=== PATIENT | male | born 1965 | race Caucasian/White ===

== ENCOUNTER 2018-08-11 17:45 | Observation (INO) | payer OTHER, SELFPAY ==
[2018-08-11 17:46] VITALS: BP 141/95; PULSE 110; RESP 18; TEMP 36.7; O2SAT 95; BMI 21.4
[2018-08-11 18:50] LABS: AST(SGOT) 34 U/L (15-37); Absolute Lymphocyte Count 2.12 X10^3/ul (0.83-4.51); Absolute Neutrophil Count 7.5 X10^3/uL (2.0-7.7); Alanine Aminotransfer ALT/SGPT 31 U/L (16-61); Albumin, Serum 2.5 g/dL (3.2-5.0); Alkaline Phosphatase 309 U/L (45-117); Anion Gap 7 (5-15); BUN 10 mg/dL (7-18); BUN/Creat Ratio 10.1 RATIO (10-20); Basophil# 0.05 X10^3/uL; Basophil% 0.5 % (0-1); Bilirubin, Direct 0.46 mg/dL (0.00-0.30); Calcium,Total 8.9 mg/dL (8.5-10.1); Chloride 93 mmol/L (98-107); Creatinine, Serum 0.99 mg/dL (0.70-1.30); EST Glomerular Filtration Rate 85 mL/min (>60); Eosinophil# 0.03 X10^3/uL; Eosinophils% 0.3 % (0-5); Est Glom Filt Rate - Afr Amer 102 mL/min (>60); Estimated Creatinine Clearance 78.54 ml/min; Globulin 4.9 g/dL (2.2-4.2); Glucose 127 mg/dL (74-106); Hematocrit 38.8 % (40-54); Hemoglobin 13.3 g/dl (13.0-16.5); Lipase 95 U/L (73-393); Lymphocyte # 2.12 X10^3/ul (4.0); Lymphocyte % 19.1 % (19-41); Mean Corp Hgb Conc 34.3 g/gl (32-36); Mean Corpuscular Hgb 29.4 pg (27.0-32.0); Mean Corpuscular Volume 85.8 fL (80-94); Mean Platelet Vol. 8.9 fl (6.2-12.0); Monocyte# 1.38 X10^3/uL; Monocyte% 12.4 % (0-10); Neutrophil # 7.46 X10^3/uL (2.7-7.7); Neutrophil % 67.1 % (47-70); Platelet Count 671 K/mm3 (150-450); Potassium 4.3 mmol/L (3.5-5.1); Protein, Total 7.4 g/dL (6.4-8.2); RBC Distribution Width CV 14.7 % (11.6-14.6); RBC Distribution Width SD 44.6 fl (35.1-43.9); Red Blood Count 4.52 M/mm3 (4.6-6.2); Sodium Level 130 mmol/L (136-145); White Blood Count 11.1 K/mm3 (4.4-11.0)
[2018-08-11 18:52] LABS: POSITIVE COUNT NO; POSITIVE DIFFERENTIAL NO; POSITIVE MORPHOLOGY NO
[2018-08-11 19:37] VITALS: BMI 21.5
--- NOTE | 2018-08-11 19:48 | ED.VISSUMM ---
- ER Visit Summary Date of Service: 08/11/18 Chief Complaint: Fatigue, sleepiness History of Present Illness: The patient is a 52 M who was started on methadone last week for bone pain from cancer metastasis. states he had increasing sleepiness over the past couple days. Today he fell asleep while trying to eat his lunch. Patient was sent in by his oncologist, Dr. Booker. 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 He is on oral chemotherapy. Dr. Booker believes the patient is getting buildup of methadone in his system and this is causing his excessive sleepiness. He advised the patient to be given Narcan if needed. He requested the patient be admitted, methadone held, and close observation. Physical Examination: Blood pressure is 141/95, temperature 98.0, heart rate 110, respiratory rate 18, pulse ox 95% on room air. Patient sitting upright in bed in no acute distress. He has no complaints. Heart is tachycardic and regular. Lung sounds are clear. Abdomen is soft with no focal tenderness. Patient is alert and oriented at this time. Test Results: CBC was a white count 11.1. Platelet count is 671,000. Chemistry studies reveal a sodium of 130 and a chloride of 93. His glucose is 127. LFTs are significant only for alk phos of 309. His lipase is normal. Emergency Department Course and Treatment: Patient is given IV fluids here. On repeat evaluation he is awake and talking with visitors. Per Dr. Booker's request, patient will be admitted and methadone is to be held. Treatment Plan: [] Disposition: Admit Impression: 1. Hyponatremia 2. Excessive sleepiness secondary to methadone This note was generated with [employer] dictation software. It may contain incorrect words, spelling, and punctuation that were not noted in review of the chart prior to signing ED Disposition - Plan for ED Patient: Chief Complaint: Alt LOC Referrals: Samy Lewis MD [Primary Care Provider] -
--- NOTE | 2018-08-11 19:52 | HP.PCM_ITS ---
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 Patient was recently started on morphine and methadone for pain control but since he was getting sick on morphine; morphine was discontinued. Patient was initially taking 5 mg of methadone every 8 hours; but because of lethargy his methadone dose was decreased to 2.5 mg every 8 hours. Even on this decreased dose of methadone patient continued to be lethargic. And on the day of admission while eating, and with his food in his mouth he was found to be sleeping. He is on Ritalin but still lethargic. His oncology Dr. Booker was notified and patient was brought to the emergency department. His family report that about 2 weeks ago patient was at [facility] for pain management. At the emergency department he was found to have a low sodium of 130. ED doctor reported that Dr. Booker recommended methadone to be held, administration of narcan if needed; and admission for close observation. Reportedly patient has neuroendocrine metastatic to his bone into his liver. Patient takes oral chemotherapy. Typically patient has pain at the back of his neck; stomach and back. However at the time of my evaluation patient denied any pain. In the past while the patient was on Percocet he was found to be sleeping all the time and he had some period where he would 'spaced out. Past Medical History Medical History: Medical History (Last Updated 08/11/18 @ 23:05 by Ezequiel Zuniga MD) Neuroendocrine cancer C7A.8 Allergies DUST Allergy (Uncoded 08/11/18 17:45) Other Home Medications: Ambulatory Orders Medication Instructions Recorded Amlodipine [Norvasc] 5 mg PO PRN PRN 08/11/18 Capecitabine 1,000 mg PO BID 08/11/18 Dicyclomine HCl [Bentyl] 10 mg PO 4X/DAY 08/11/18 DiphenhydrAMINE [Benadryl] 25 mg PO QHS PRN PRN 08/11/18 Fluticasone 0.05% [Flonase Nasal 1 spray NASAL PRN PRN 08/11/18 [place]] Lactulose 30 ml PO BID 08/11/18 Metaxalone [Skelaxin] 800 mg PO TID 08/11/18 Methadone HCl 2.5 mg PO Q8H PRN PRN 08/11/18 Methylphenidate HCl [Ritalin (G)] 5 mg PO BID 08/11/18 Metoclopramide HCl 10 mg PO Q6H 08/11/18 Naproxen Sod/Diphenhydram HCl 2 tab PO QHS 08/11/18 [Aleve Pm Caplet] Naproxen Sodium [Aleve] 440 mg PO BID PRN PRN 08/11/18 Pantoprazole Sodium [Protonix] 20 mg PO DAILY 08/11/18 Sennosides/Docusate Sodium [Senna 1 tab PO BID 08/11/18 Plus Tablet] Temazepam [Restoril] 7.5 mg PO QHS 08/11/18 Temozolomide 300 mg PO DAILY 08/11/18 Surgical History: - - fusion of wrist; silicon buckle left eye Lives: Spouse/ Significant Other Smoking Status: Never smoker Tobacco Use: Non-smoker Alcohol: None - *Family History Maternal History Items: Cancer - colon Paternal History Items: Heart Disease - Dad had heart attack in his 70s Review of Systems Constitutional: Reports: Weight Change - Lost 10 pounds in 1 month., Fatigue. Denies: Chills, Fever HEENT: Denies: Head Aches, Sinus Congestion, Sinus Drainage Cardiovascular: Denies: Chest Pain, Palpitations Respiratory: Denies: Cough, Shortness of breath at rest, Sputum production Gastrointestinal: Denies: Abdominal Pain, Nausea, Vomiting Genitourinary: Denies: Dysuria Musculoskeletal: Denies: Joint Pain, Joint Tenderness Skin: Denies: Rash, Wounds Neurological: Denies: Numbness, Tingling, Focal weakness Psychiatric: Denies: Anxiety, Depression, Homicidal Ideations, Suicidal Ideations Hematologic/ Lymphatic: Denies: Easy Bruising, Easy Bleeding VTE Information - Inpt Only VTE Present on Admission: No VTE Mechan Device Prophylaxis: None VTE Pharm Prophylaxis ordered?: Yes Patient Problems: Active and Suspected Problems (Last Updated 08/11/18 @ 23:05 by Ezequiel Zuniga MD) Acute encephalopathy (Acute) Hyponatremia (Acute) - Physical Exam General: Alert, Oriented x3, Cooperative HEENT: Atraumatic, PERRLA, EOMI, Normocephalic Neck: Supple, No JVD, Negative Carotid Bruits, - - nodule at back of head Lungs: Clear to auscultation, Normal air movement Cardiovascular: Regular rate, No murmurs, Tachycardic Abdomen: Bowel Sounds Present, Soft, Non Tender Extremities: No edema, Capillary Refill Less than 3 Seconds Skin: No rashes, No breakdown Musculoskeletal: No Tenderness to Palpation of Joints or Extremities Neurological: Cranial nerves II-XII grossly intact Psych/Mental Status: Normal Affect, Appropriate Vital Signs Temp Pulse Resp BP Pulse Ox 98.0 F 110 H 18 141/95 H 95 08/11/18 17:46 08/11/18 17:46 08/11/18 17:46 08/11/18 17:46 08/11/18 17:46 Oxygen Delivery Method Room Air Weight: 62.2 kg Body Mass Index (BMI) 21.4 Laboratory Tests Past 24 Hrs 08/11/18 08/11/18 18:16 18:16 WBC 11.1 H RBC 4.52 L Hgb 13.3 Hct 38.8 L MCV 85.8 MCH 29.4 MCHC 34.3 RDW 14.7 H RDW Differential 44.6 H Plt Count 671 H MPV 8.9 Immature Gran % (Auto) 0.600 Neut % (Auto) 67.1 Lymph % (Auto) 19.1 Hand % (Auto) 12.4 H Eos % (Auto) 0.3 Baso % (Auto) 0.5 Absolute Neuts (auto) 7.5 Absolute Lymphs (auto) 2.12 Total Counted Not Reportable Sodium 130 L Potassium 4.3 Chloride 93 L Carbon Dioxide 30.0 Anion Gap 7 BUN 10 Creatinine 0.99 Estim Creat Clear Calc 78.54 Est GFR (MDRD) Af Amer 102 Est GFR (MDRD) Non-Af 85 BUN/Creatinine Ratio 10.1 Glucose 127 H Calcium 8.9 Total Bilirubin 0.70 Direct Bilirubin 0.46 H AST 34 ALT 31 Alkaline Phosphatase 309 H Total Protein 7.4 Albumin 2.5 L Globulin 4.9 H Lipase 95 Assessment/Plan All Active Problems (Last Updated 08/11/18 @ 23:05 by Ezequiel Zuniga MD) Acute encephalopathy (Acute) Hyponatremia (Acute) The patient is a 52 year old M with a 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 Acute encephalopathy Likely due to methadone use. Methadone held. Home nightly Benadryl, Metaxalone, and Restoril held. No signs and symptoms of infection. Unlikely due to debilitating effects of chemotherapy since at the time of evaluation patient did not look lethargic. Will check TSH. Clinical monitoring. Hypo-osmolar hyponatremia Urine sodium, TSH, a.m. cortisol ordered Received IV normal saline infusion in the emergency department Normal saline continued. If SIADH from cancer would recommend discontinuation of normal saline infusion. Elevated alkaline phosphatase Likely from metastatic of neuro endocrine tumor to liver. Continue treatment of neuroendocrine tumor Antimitochondrial antibody ordered. Neuroendocrine tumor Oncology consult. Home oral chemotherapy continued. Hypertension Family report the patient is not hypertensive but because of pain his blood pressure outpatient has occasionally been high and he takes as needed blood pressure medication. On admission blood pressure is not within goal. We will make his home Norvasc scheduled. DVT prophylaxis Because of high risk patient placed on Lovenox. Code Visit OBSV E&M: 16094 Initial observation care L3
[2018-08-11 19:59] VITALS: BP 143/101; PULSE 85; RESP 14; O2SAT 98
[2018-08-11] MEDS: 0.9% Normal Saline 1,000 ML 150 ML IV (19:59)
[2018-08-11 20:32] VITALS: BP 151/99; PULSE 75; RESP 14; TEMP 36.9; O2SAT 95; BMI 21.2
[2018-08-11 21:20] LABS: Osmolality, Urine 242 mOsm/KG
[2018-08-11 21:23] LABS: Urine Sodium 69 mmol/L (Not Establ.)
[2018-08-11 21:54] LABS: Osmolality, Serum 269 mOsm/KG (275-295)
[2018-08-11 22:00] VITALS: PULSE 75
[2018-08-11 22:03] LABS: Thyroid Stim Hormone (TSH) 2.81 uIU/mL (0.358-3.74)
[2018-08-11] MEDS: 0.9% Normal Saline 1,000 ML 100 ML IV (23:06)
[2018-08-11] MEDS: Dicyclomine 10 MG Capsule PO (23:06)
[2018-08-11] MEDS: DiphenhydrAMINE 25 MG Capsule 50 MG PO (23:07)
[2018-08-11] MEDS: Naproxen 500 MG Tablet PO (23:08)
[2018-08-11] MEDS: Lactulose 20 GM/30 ML UDC PO (23:08)
[2018-08-11] MEDS: Senna/Docusate Sodium 1 Tablet PO (23:09)
[2018-08-11] MEDS: Metoclopramide 10 MG Tablet PO (23:10)
[2018-08-12 02:30] VITALS: BP 119/82; PULSE 79; RESP 16; TEMP 36.6; O2SAT 97
[2018-08-12 04:00] VITALS: PULSE 90
[2018-08-12 06:23] LABS: Absolute Lymphocyte Count 2.72 X10^3/ul (0.83-4.51); Absolute Neutrophil Count 4.9 X10^3/uL (2.0-7.7); Basophil# 0.04 X10^3/uL; Basophil% 0.4 % (0-1); Eosinophil# 0.05 X10^3/uL; Eosinophils% 0.6 % (0-5); Hematocrit 33.4 % (40-54); Hemoglobin 11.5 g/dl (13.0-16.5); Lymphocyte # 2.72 X10^3/ul (4.0); Lymphocyte % 30.4 % (19-41); Mean Corp Hgb Conc 34.4 g/gl (32-36); Mean Corpuscular Hgb 29.5 pg (27.0-32.0); Mean Corpuscular Volume 85.6 fL (80-94); Mean Platelet Vol. 8.6 fl (6.2-12.0); Monocyte# 1.16 X10^3/uL; Neutrophil # 4.92 X10^3/uL (2.7-7.7); Platelet Count 570 K/mm3 (150-450); RBC Distribution Width CV 14.6 % (11.6-14.6); White Blood Count 8.9 K/mm3 (4.4-11.0)
[2018-08-12 06:25] LABS: POSITIVE COUNT NO; POSITIVE DIFFERENTIAL NO; POSITIVE MORPHOLOGY NO
[2018-08-12 06:53] LABS: Anion Gap 5 (5-15); BUN 10 mg/dL (7-18); BUN/Creat Ratio 11.9 RATIO (10-20); Calcium,Total 8.4 mg/dL (8.5-10.1); Chloride 100 mmol/L (98-107); Creatinine, Serum 0.84 mg/dL (0.70-1.30); EST Glomerular Filtration Rate 102 mL/min (>60); Est Glom Filt Rate - Afr Amer 123 mL/min (>60); Estimated Creatinine Clearance 93.15 ml/min; Glucose 92 mg/dL (74-106); Potassium 4.2 mmol/L (3.5-5.1); Sodium Level 135 mmol/L (136-145); Thyroid Stim Hormone (TSH) 3.12 uIU/mL (0.358-3.74)
[2018-08-12] MEDS: Dicyclomine 10 MG Capsule PO (07:01)
[2018-08-12] MEDS: Metoclopramide 10 MG Tablet PO ×2 (07:03→10:10)
--- NOTE | 2018-08-12 07:35 | PCM.PN.HOSP ---
Patient Problems: Active and Suspected Problems (Last Updated 08/11/18 @ 23:05 by Ezequiel Zuniga MD) Acute encephalopathy (Acute) Hyponatremia (Acute) Subjective: Patient overnight with improved mental status, alert and oriented x3 and denies any acute pain currently given recent hold on methadone. He only recently been started methadone per discussion with oncology and given patient history of metastatic liver disease suspect poor metabolism resulting in his lethargy. Discussed again importance of appropriate oral hydration which he understands. Patient denies fevers, chills, nausea, emesis, abdominal pain, chest pain or dyspnea. Objective: Physical Examination: General: awake, alert, oriented x 3 and cooperative, seated upright in bed in no apparent distress. Skin: normal color, turgor, no icterus, cyanosis. HEENT: AT/NC, EOMI, PERRLA, improved MMM. Lungs: CTA bilaterally, moderate effort, mild decrease BL bases, no rales, ronchi or wheezing. Heart: Regular rate and rhythm; no gallop, rub audible. Abdomen: soft, NTTP, ND, normal BS. Extremities: no cyanosis, clubbing, or edema. Neurological: patient awake, alert, oriented x 3; cognitive function intact; pupils equally reactive to light and accomodation; cranial nerves II-XII grossly normal, moving all 4 extremities, no focal deficits, strength improved, mildly globally decreased. Psychiatric: affect appears normal, no acute evidence of depressive or anxiety feelings. Vitals/I&O's: Vital Signs Temp Pulse Resp BP Pulse Ox 97.9 F 90 16 119/82 H 97 08/12/18 02:30 08/12/18 04:00 08/12/18 02:30 08/12/18 02:30 08/12/18 02:30 Oxygen Delivery Method Room Air Weight: 138 lb 0.15 oz Body Mass Index (BMI) 21.2 Intake and Output for Last 24 Hours 08/10/18 08/11/18 08/12/18 23:59 23:59 23:59 Intake Total 161 / 161 Output Total 600 / 600 Balance -439 / -439 Laboratory Results 08/11/18 18:16: WBC 11.1 H, RBC 4.52 L, Hgb 13.3, Hct 38.8 L, MCV 85.8, MCH 29.4, MCHC 34.3, RDW 14.7 H, RDW Differential 44.6 H, Plt Count 671 H, MPV 8.9, Immature Gran % (Auto) 0.600, Neut % (Auto) 67.1, Lymph % (Auto) 19.1, [place] % (Auto) 12.4 H, Eos % (Auto) 0.3, Baso % (Auto) 0.5, Absolute Neuts (auto) 7.5, Absolute Lymphs (auto) 2.12, Total Counted Not Reportable 08/11/18 18:16: Sodium 130 L, Potassium 4.3, Chloride 93 L, Carbon Dioxide 30.0, Anion Gap 7, BUN 10, Creatinine 0.99, Estim Creat Clear Calc 78.54, Est GFR (MDRD) Af Amer 102, Est GFR (MDRD) Non-Af 85, BUN/Creatinine Ratio 10.1, Glucose 127 H, Calcium 8.9, Total Bilirubin 0.70, Direct Bilirubin 0.46 H, AST 34, ALT 31, Alkaline Phosphatase 309 H, Total Protein 7.4, Albumin 2.5 L, Globulin 4.9 H, Lipase 95 08/11/18 18:16: Serum Osmolality 269 L 08/11/18 18:16: TSH 2.81 08/11/18 21:00: Urine Osmolality 242 08/11/18 21:00: Ur Random Sodium 69 08/12/18 06:04: Cortisol Pending 08/12/18 06:04: WBC 8.9, RBC 3.90 L, Hgb 11.5 L, Hct 33.4 L, MCV 85.6, MCH 29.5, MCHC 34.4, RDW 14.6, RDW Differential 44.0 H, Plt Count 570 H, MPV 8.6, Immature Gran % (Auto) 0.600, Neut % (Auto) 55.0, Lymph % (Auto) 30.4, [place] % (Auto) 13.0 H, Eos % (Auto) 0.6, Baso % (Auto) 0.4, Absolute Neuts (auto) 4.9, Absolute Lymphs (auto) 2.72, Total Counted Not Reportable 08/12/18 06:04: Sodium 135 L, Potassium 4.2, Chloride 100, Carbon Dioxide 30.0, Anion Gap 5, BUN 10, Creatinine 0.84, Estim Creat Clear Calc 93.15, Est GFR (MDRD) Af Amer 123, Est GFR (MDRD) Non-Af 102, BUN/Creatinine Ratio 11.9, Glucose 92, Calcium 8.4 L, TSH 3.12 08/12/18 06:04: Anti-Mitochondrial Ab Pending Current Medications Amlodipine Besylate (Norvasc) 5 mg PO DAILY [facility] Bisacodyl (Dulcolax) 5 mg PO DAILY PRN PRN PRN Reason: Constipation Dicyclomine HCl (Bentyl) 10 mg PO ACHS [facility] Last Admin: 08/12/18 07:01 Dose: 10 mg Diphenhydramine HCl (Benadryl) 50 mg PO QHS [facility] Last Admin: 08/11/18 23:07 Dose: 50 mg Enoxaparin Sodium (Lovenox) 40 mg SC DAILY@1000 [facility] Fluticasone Propionate (Flonase Nasal [place]) 1 spray NASAL DAILY PRN PRN PRN Reason: ALLERGIES Sodium Chloride () 1,000 mls @ 100 mls/hr IV .Q10H [facility] Stop: 08/12/18 16:30 Last Admin: 08/11/18 23:06 Dose: 100 mls/hr Lactulose (Chronulac, Cephulac) 20 gm PO BID [facility] Last Admin: 08/11/18 23:08 Dose: 20 gm Magnesium Hydroxide (Milk Of Magnesia) 30 ml PO DAILY PRN PRN PRN Reason: Constipation Methylphenidate HCl (Ritalin (G)) 5 mg PO 1000,1800 [facility] Metoclopramide HCl (Reglan) 10 mg PO Q6 [facility] Last Admin: 08/12/18 07:03 Dose: 10 mg Naproxen (Naprosyn) 500 mg PO BID PRN PRN PRN Reason: PAIN Naproxen (Naprosyn) 500 mg PO QHS [facility] Last Admin: 08/11/18 23:08 Dose: 500 mg Non-Formulary Medication (Capecitabine) 1,000 mg PO BID [facility] Non-Formulary Medication (Temozolomide [Temozolomide]) 300 mg PO DAILY [facility] Pantoprazole Sodium (Protonix) 20 mg PO DAILY [facility] Senna/Docusate Sodium (Senokot-S, Soni-Colace) 1 tablet PO BID [facility] Last Admin: 08/11/18 23:09 Dose: 1 tablet Sodium Chloride () 5 - 30 ml IV UD PRN PRN Reason: SALINE FLUSH Medical Necessity - Tobacco Use Smoking Status: Never smoker Tobacco Use: Non-smoker Assessment/Plan All Active Problems (Last Updated 08/11/18 @ 23:05 by Ezequiel Zuniga MD) Acute encephalopathy (Acute) Hyponatremia (Acute) The patient is a 52 y/o M w/ PMHx: Recently Dx Metastatic (bone and liver) Neuroendocrine tumor diagnosed March 2018 following w/ Dr. Booker recently started on methadone and morphine for severe pain; however with onset morphine intolerance secondary to N/V with increase of his methadone with onset increased lethargy. (1) Acute Encephalopathy, Multifactorial, Accidental Overdose Narcotics w/ Chronic Pain Syndrome, Hyponatremia, Progressive Metastatic Disease: Admitted to [place], methadone held, gently hydrated, treatment of hyponatremia felt likely hypovolemic hyponatremia secondary to poor intake, fall precautions, PT and OT assisted, CM consultation. Will need to re-address his pain regimen and he would likely benefit from consultation w/ palliative care outpatient versus continuation with [facility]. Given his history of metastatic liver disease, better to avoid agents which may be markedly affected by liver metabolism. (2) Hyponatremia, Suspected Hypovolemic: Secondary to poor intake, dehydration, admission Na 130, gently hydrated, repeat 08/12/18 Na 135, Nel 69, UOsm 242, TSH 3.12, cortisol pending. Evaluation per Dr. Booker w/ planned repeat BMP with PCP versus Oncology at follow-up with encouraged appropriate hydration. (3) Dx Metastatic (bone and liver) Neuroendocrine tumor: Diagnosed March 2018, following w/ Dr. Booekr. Dr. Booker consulted, pending. Maintained on oral chemotherapy. Mag and phos levels normal. Elevated Alk phos, likely secondary to his metastatic disease. (4) Hypertension: Will now schedule his norvasc as was PRN prior, likely secondary to hypotension w/ heavy narcotic regimen. (5) Chronic Constipation w/ Neurogenic component secondary to Metastatic CA: Maintain on home bowel regimen, if narcotics decreased/altered may need to decrease this regimen; however, given onset with CA component may need full regimen [id number]. (6) GERD: PPI. (7) DVT Prophylaxis: SCDs, lovenox.
--- NOTE | 2018-08-12 07:42 | PN_ITS ---
Patient Problems: Active and Suspected Problems (Last Updated 08/11/18 @ 23:05 by Ezequiel Zuniga MD) Acute encephalopathy (Acute) Hyponatremia (Acute) Subjective: Patient overnight with improved mental status, alert and oriented x3 and denies any acute pain currently given recent hold on methadone. He only recently been started methadone per discussion with oncology and given patient history of metastatic liver disease suspect poor metabolism resulting in his lethargy. Discussed again importance of appropriate oral hydration which he understands. Patient denies fevers, chills, nausea, emesis, abdominal pain, chest pain or dyspnea. Objective: Physical Examination: General: awake, alert, oriented x 3 and cooperative, seated upright in bed in no apparent distress. Skin: normal color, turgor, no icterus, cyanosis. HEENT: AT/NC, EOMI, PERRLA, improved MMM. Lungs: CTA bilaterally, moderate effort, mild decrease BL bases, no rales, ronchi or wheezing. Heart: Regular rate and rhythm; no gallop, rub audible. Abdomen: soft, NTTP, ND, normal BS. Extremities: no cyanosis, clubbing, or edema. Neurological: patient awake, alert, oriented x 3; cognitive function intact; pupils equally reactive to light and accomodation; cranial nerves II-XII grossly normal, moving all 4 extremities, no focal deficits, strength improved, mildly globally decreased. Psychiatric: affect appears normal, no acute evidence of depressive or anxiety feelings. Vitals/I&O's: Vital Signs Temp Pulse Resp BP Pulse Ox 97.9 F 90 16 119/82 H 97 08/12/18 02:30 08/12/18 04:00 08/12/18 02:30 08/12/18 02:30 08/12/18 02:30 Oxygen Delivery Method Room Air Weight: 138 lb 0.15 oz Body Mass Index (BMI) 21.2 Intake and Output for Last 24 Hours 08/10/18 08/11/18 08/12/18 23:59 23:59 23:59 Intake Total 161 / 161 Output Total 600 / 600 Balance -439 / -439 Laboratory Results 08/11/18 18:16: WBC 11.1 H, RBC 4.52 L, Hgb 13.3, Hct 38.8 L, MCV 85.8, MCH 29.4, MCHC 34.3, RDW 14.7 H, RDW Differential 44.6 H, Plt Count 671 H, MPV 8.9, Immature Gran % (Auto) 0.600, Neut % (Auto) 67.1, Lymph % (Auto) 19.1, [place] % ( Auto) 12.4 H, Eos % (Auto) 0.3, Baso % (Auto) 0.5, Absolute Neuts (auto) 7.5, Absolute Lymphs (auto) 2.12, Total Counted Not Reportable 08/11/18 18:16: Sodium 130 L, Potassium 4.3, Chloride 93 L, Carbon Dioxide 30.0, Anion Gap 7, BUN 10, Creatinine 0.99, Estim Creat Clear Calc 78.54, Est GFR (MDRD) Af Amer 102, Est GFR (MDRD) Non-Af 85, BUN/Creatinine Ratio 10.1, Glucose 127 H, Calcium 8.9, Total Bilirubin 0.70, Direct Bilirubin 0.46 H, AST 34, ALT 31, Alkaline Phosphatase 309 H, Total Protein 7.4, Albumin 2.5 L, Globulin 4.9 H , Lipase 95 08/11/18 18:16: Serum Osmolality 269 L 08/11/18 18:16: TSH 2.81 08/11/18 21:00: Urine Osmolality 242 08/11/18 21:00: Ur Random Sodium 69 08/12/18 06:04: Cortisol Pending 08/12/18 06:04: WBC 8.9, RBC 3.90 L, Hgb 11.5 L, Hct 33.4 L, MCV 85.6, MCH 29.5, MCHC 34.4, RDW 14.6, RDW Differential 44.0 H, Plt Count 570 H, MPV 8.6, Immature Gran % (Auto) 0.600, Neut % (Auto) 55.0, Lymph % (Auto) 30.4, [place] % (Auto) 13.0 H, Eos % (Auto) 0.6, Baso % (Auto) 0.4, Absolute Neuts (auto) 4.9, Absolute Lymphs (auto) 2.72, Total Counted Not Reportable 08/12/18 06:04: Sodium 135 L, Potassium 4.2, Chloride 100, Carbon Dioxide 30.0, Anion Gap 5, BUN 10, Creatinine 0.84, Estim Creat Clear Calc 93.15, Est GFR (MDRD) Af Amer 123, Est GFR (MDRD) Non-Af 102, BUN/Creatinine Ratio 11.9, Glucose 92, Calcium 8.4 L, TSH 3.12 08/12/18 06:04: Anti-Mitochondrial Ab Pending Current Medications Amlodipine Besylate (Norvasc) 5 mg PO DAILY [facility] Bisacodyl (Dulcolax) 5 mg PO DAILY PRN PRN PRN Reason: Constipation Dicyclomine HCl (Bentyl) 10 mg PO ACHS [facility] Last Admin: 08/12/18 07:01 Dose: 10 mg Diphenhydramine HCl (Benadryl) 50 mg PO QHS [facility] Last Admin: 08/11/18 23:07 Dose: 50 mg Enoxaparin Sodium (Lovenox) 40 mg SC DAILY@1000 [facility] Fluticasone Propionate (Flonase Nasal [place]) 1 spray NASAL DAILY PRN PRN PRN Reason: ALLERGIES Sodium Chloride () 1,000 mls @ 100 mls/hr IV .Q10H [facility] Stop: 08/12/18 16:30 Last Admin: 08/11/18 23:06 Dose: 100 mls/hr Lactulose (Chronulac, Cephulac) 20 gm PO BID [facility] Last Admin: 08/11/18 23:08 Dose: 20 gm Magnesium Hydroxide (Milk Of Magnesia) 30 ml PO DAILY PRN PRN PRN Reason: Constipation Methylphenidate HCl (Ritalin (G)) 5 mg PO 1000,1800 [facility] Metoclopramide HCl (Reglan) 10 mg PO Q6 [facility] Last Admin: 08/12/18 07:03 Dose: 10 mg Naproxen (Naprosyn) 500 mg PO BID PRN PRN PRN Reason: PAIN Naproxen (Naprosyn) 500 mg PO QHS [facility] Last Admin: 08/11/18 23:08 Dose: 500 mg Non-Formulary Medication (Capecitabine) 1,000 mg PO BID [facility] Non-Formulary Medication (Temozolomide [Temozolomide]) 300 mg PO DAILY [facility] Pantoprazole Sodium (Protonix) 20 mg PO DAILY [facility] Senna/Docusate Sodium (Senokot-S, Soni-Colace) 1 tablet PO BID [facility] Last Admin: 08/11/18 23:09 Dose: 1 tablet Sodium Chloride () 5 - 30 ml IV UD PRN PRN Reason: SALINE FLUSH Medical Necessity - Tobacco Use Smoking Status: Never smoker Tobacco Use: Non-smoker Assessment/Plan All Active Problems (Last Updated 08/11/18 @ 23:05 by Ezequiel Zuniga MD) Acute encephalopathy (Acute) Hyponatremia (Acute) The patient is a 52 y/o M w/ PMHx: Recently Dx Metastatic (bone and liver) Neuroendocrine tumor diagnosed March 2018 following w/ Dr. Booker recently started on methadone and morphine for severe pain; however with onset morphine intolerance secondary to N/V with increase of his methadone with onset increased lethargy. (1) Acute Encephalopathy, Multifactorial, Accidental Overdose Narcotics w/ Chronic Pain Syndrome, Hyponatremia, Progressive Metastatic Disease: Admitted to [place], methadone held, gently hydrated, treatment of hyponatremia felt likely hypovolemic hyponatremia secondary to poor intake, fall precautions, PT and OT assisted, CM consultation. Will need to re-address his pain regimen and he would likely benefit from consultation w/ palliative care outpatient versus continuation with [facility]. Given his history of metastatic liver disease, better to avoid agents which may be markedly affected by liver metabolism. (2) Hyponatremia, Suspected Hypovolemic: Secondary to poor intake, dehydration, admission Na 130, gently hydrated, repeat 08/12/18 Na 135, Nel 69, UOsm 242, TSH 3.12, cortisol pending. Evaluation per Dr. Booker w/ planned repeat BMP with PCP versus Oncology at follow-up with encouraged appropriate hydration. (3) Dx Metastatic (bone and liver) Neuroendocrine tumor: Diagnosed March 2018, following w/ Dr. Booker. Dr. Booker consulted, pending. Maintained on oral chemotherapy. Mag and phos levels normal. Elevated Alk phos, likely secondary to his metastatic disease. (4) Hypertension: Will now schedule his norvasc as was PRN prior, likely secondary to hypotension w/ heavy narcotic regimen. (5) Chronic Constipation w/ Neurogenic component secondary to Metastatic CA: Maintain on home bowel regimen, if narcotics decreased/altered may need to decrease this regimen; however, given onset with CA component may need full regimen [id number]. (6) GERD: PPI. (7) DVT Prophylaxis: SCDs, lovenox.
[2018-08-12 07:53] VITALS: BP 155/94; PULSE 77; RESP 16; TEMP 36.6; O2SAT 96
[2018-08-12 07:55] VITALS: PULSE 77; O2SAT 96
[2018-08-12 08:03] LABS: Magnesium 2.2 mg/dL (1.6-2.6); Phosphorus 3.9 mg/dL (2.5-4.9)
--- NOTE | 2018-08-12 08:11 | NURSING ---
This RN notified Dr. Booker's answering service of order for consult. Notified that Dr. Booker already saw patient this morning and in a note stated he would do a consult note today.
--- NOTE | 2018-08-12 08:12 | PCM.CONS.B ---
Problem List (1) Acute encephalopathy Status: Acute (2) Neuroendocrine cancer Status: Chronic - Consult Date of Consult: 08/12/18 - Reason for Consult HPI: Patient is 52-year-old male had a past medical history significant for asthma (stable symptoms since childhood) who over the 2 years prior to initial evaluation here had been experiencing a symptom complex characterized by a sensation of abdominal bloating/constipation and pain. These episodes were getting more frequent in the few months prior to evaluation. Also during these episodes he'd have significant hypertension. ? The only consistent triggering factor was going more than 4-6 hours without eating. ? He was evaluated urgent care for these complaints. A CT scan the abdomen was performed that demonstrated findings consistent with hepatic metastases. ? He underwent biopsy. Results demonstrated neuroendocrine tumor. Ki-67 was approximately 30%. ? CT of the chest and brain on 03/24/2018 were unremarkable. There were a few indeterminate small left lower lung nodules along with a small nodule in the right lung that was consistent with granuloma. CT abdomen pelvis demonstrated findings are highly suspicious for metastatic disease of unknown primary. ? Neuroendocrine PET imaging revealed foci of increased activity in left parotid region and the suboccipital cutaneous area as well as multiple foci of increased activity in the liver nearly diffuse. There was focal increased activity in the gastric region most pronounced along the proximal gastric wall. There is also focal activity in the gastroduodenal junction area adjacent to the left lobe of liver. Multiple foci of increased activity were noted throughout the axial and appendicular skeleton.? ? He underwent an EGD 04/22/2018 and was found to have localized nodular mucosin the duodenal bulb. Biopsies were obtained. The gastric antral wall was noted to be normal. There was a medium size, ulcerated non-circumferential mass with losing and stigmata of recent bleed in the gastric fundus. Biopsies were obtained. Fulguration of the gastric fundus was performed to stop the bleeding. This was by way of argon plasma. On colonoscopy performed same day, he was noted to have congestive mucosin at the ileocecal valve. Examination was otherwise normal. ? He was initially treated with lanreotide a somatostatin analogue. His constipation and pain improved along with an increase in energy approximately 2 weeks after first injection. However by about 8 weeks palliative effect was lost. He was seen at [facility] for second opinion. Regimen of capecitabine/temozolomide was recommended. He started temozolomide about a week ago. He has not yet started temozolomide. The other symptomatic issues have been profound fatigue, severe constipation which seems to be neurogenic, i.e. he has soft stools when he is able to go and pain. He is also been hypothermic. He's not have evidence of fever since diagnosis. His been on a regimen of methadone 2.5 mg every 8 hours along with Ritalin. Earlier this week he had extreme difficulty with nausea but this was attributed to Roxanol. He is no longer using that. Yesterday he was more lethargic than usual and his is having a hard time arousing him. He was brought to the ED. Methadone has been held. This morning he is awake and alert. He denies pain. He's not had nausea and about 2 days. No vomiting in several days. Allergies DUST Allergy (Uncoded 08/11/18 17:45) Other Current Medications Amlodipine Besylate (Norvasc) 5 mg PO DAILY [facility] Bisacodyl (Dulcolax) 5 mg PO DAILY PRN PRN PRN Reason: Constipation Dicyclomine HCl (Bentyl) 10 mg PO ACHS [facility] Last Admin: 08/12/18 07:01 Dose: 10 mg Diphenhydramine HCl (Benadryl) 50 mg PO QHS [facility] Last Admin: 08/11/18 23:07 Dose: 50 mg Enoxaparin Sodium (Lovenox) 40 mg SC DAILY@1000 [facility] Fluticasone Propionate (Flonase Nasal [place]) 1 spray NASAL DAILY PRN PRN PRN Reason: ALLERGIES Sodium Chloride () 1,000 mls @ 100 mls/hr IV .Q10H [facility] Stop: 08/12/18 16:30 Last Admin: 08/11/18 23:06 Dose: 100 mls/hr Lactulose (Chronulac, Cephulac) 20 gm PO BID [facility] Last Admin: 08/11/18 23:08 Dose: 20 gm Magnesium Hydroxide (Milk Of Magnesia) 30 ml PO DAILY PRN PRN PRN Reason: Constipation Methylphenidate HCl (Ritalin (G)) 5 mg PO 1000,1800 [facility] Metoclopramide HCl (Reglan) 10 mg PO Q6 [facility] Last Admin: 08/12/18 07:03 Dose: 10 mg Naproxen (Naprosyn) 500 mg PO BID PRN PRN PRN Reason: PAIN Naproxen (Naprosyn) 500 mg PO QHS [facility] Last Admin: 08/11/18 23:08 Dose: 500 mg Non-Formulary Medication (Capecitabine) 1,000 mg PO BID [facility] Non-Formulary Medication (Temozolomide [Temozolomide]) 300 mg PO DAILY [facility] Pantoprazole Sodium (Protonix) 20 mg PO DAILY [facility] Senna/Docusate Sodium (Senokot-S, Soni-Colace) 1 tablet PO BID [facility] Last Admin: 08/11/18 23:09 Dose: 1 tablet Sodium Chloride () 5 - 30 ml IV UD PRN PRN Reason: SALINE FLUSH SOC: He is a lifelong nonsmoker. He has never used alcohol. He is employed with a local [employer] business. he lives with his in [place]. FAM: Mother had colon cancer. ROS: Constitutional: See above. Neuro: Denies TRENT (Although can have sharp occipital pain from the subcutaneous metastases) and vertigo. Denies symptoms of neuropathy. HEENT: No recent change in voice, vision or hearing. Resp: Denies cough, wheeze and hemoptysis. Denies shortness of breath at rest. CVS: Denies exertional chest pain, PND, orthopnea and LE edema. GI: Denies dysgeusia. Denies symptoms of stomatitis. Denies dysphagia and odynophagia. : Denies dysuria or gross hematuria. No symptoms of bladder outlet obstruction. Endo: See above. Musculoskeletal: See above. Derm: Denies rash. Denies jaundice and diffuse pruritis. Heme: Denies unusual bleeding and unexplained bruising. Psych: Normal mood. PHYSICAL EXAM: Vitals: Vital Signs Temp 97.8 F 08/12/18 07:53 Pulse 77 08/12/18 07:55 Resp 16 08/12/18 07:53 BP 155/94 H 08/12/18 07:53 Pulse Ox 96 08/12/18 07:55 Intake & Output 08/10/18 08/11/18 08/12/18 23:59 23:59 23:59 Intake Total 161 / 161 Output Total 600 / 600 Balance -439 / -439 Weight: 62.6 kg Intake: IV fluid/meds 161 / 161 Output: Urine 600 / 600 Well-appearing and in no acute distress. EYES: Sclerae are anicteric bilaterally. NECK: Supple. LYMPHATIC: There is no palpable cervical, supraclavicular, axillary or adenopathy. RESPIRATORY: Inspiratory breath sounds are of normal intensity in all sewell. No rales, wheezes or rhonchi. CARDIOVASCULAR: Rhythm is regular. Normal intensity S1/S2. ABDOMEN: The abdomen is nondistended. Extremities: No swelling or edema. SKIN: No jaundice or rash. NEUROLOGIC: Asake and alert. 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 No focal motor weakness. MUSCULOSKELETAL: No muscle wasting. Laboratory Results - last 24 hr 08/11/18 08/11/18 08/11/18 18:16 18:16 18:16 WBC 11.1 H RBC 4.52 L Hgb 13.3 Hct 38.8 L MCV 85.8 MCH 29.4 MCHC 34.3 RDW 14.7 H RDW Differential 44.6 H Plt Count 671 H MPV 8.9 Immature Gran % (Auto) 0.600 Neut % (Auto) 67.1 Lymph % (Auto) 19.1 [place] % (Auto) 12.4 H Eos % (Auto) 0.3 Baso % (Auto) 0.5 Absolute Neuts (auto) 7.5 Absolute Lymphs (auto) 2.12 Total Counted Not Reportable Sodium 130 L Potassium 4.3 Chloride 93 L Carbon Dioxide 30.0 Anion Gap 7 BUN 10 Creatinine 0.99 Estim Creat Clear Calc 78.54 Est GFR (MDRD) Af Amer 102 Est GFR (MDRD) Non-Af 85 BUN/Creatinine Ratio 10.1 Glucose 127 H Serum Osmolality 269 L Calcium 8.9 Phosphorus Magnesium Total Bilirubin 0.70 Direct Bilirubin 0.46 H AST 34 ALT 31 Alkaline Phosphatase 309 H Total Protein 7.4 Albumin 2.5 L Globulin 4.9 H Lipase 95 TSH Urine Osmolality Ur Random Sodium 08/11/18 08/11/18 08/11/18 18:16 21:00 21:00 WBC RBC Hgb Hct MCV MCH MCHC RDW RDW Differential Plt Count MPV Immature Gran % (Auto) Neut % (Auto) Lymph % (Auto) [place] % (Auto) Eos % (Auto) Baso % (Auto) Absolute Neuts (auto) Absolute Lymphs (auto) Total Counted Sodium Potassium Chloride Carbon Dioxide Anion Gap BUN Creatinine Estim Creat Clear Calc Est GFR (MDRD) Af Amer Est GFR (MDRD) Non-Af BUN/Creatinine Ratio Glucose Serum Osmolality Calcium Phosphorus Magnesium Total Bilirubin Direct Bilirubin AST ALT Alkaline Phosphatase Total Protein Albumin Globulin Lipase TSH 2.81 Urine Osmolality 242 Ur Random Sodium 69 08/12/18 08/12/18 08/12/18 06:04 06:04 06:04 WBC 8.9 RBC 3.90 L Hgb 11.5 L Hct 33.4 L MCV 85.6 MCH 29.5 MCHC 34.4 RDW 14.6 RDW Differential 44.0 H Plt Count 570 H MPV 8.6 Immature Gran % (Auto) 0.600 Neut % (Auto) 55.0 Lymph % (Auto) 30.4 [place] % (Auto) 13.0 H Eos % (Auto) 0.6 Baso % (Auto) 0.4 Absolute Neuts (auto) 4.9 Absolute Lymphs (auto) 2.72 Total Counted Not Reportable Sodium 135 L Potassium 4.2 Chloride 100 Carbon Dioxide 30.0 Anion Gap 5 BUN 10 Creatinine 0.84 Estim Creat Clear Calc 93.15 Est GFR (MDRD) Af Amer 123 Est GFR (MDRD) Non-Af 102 BUN/Creatinine Ratio 11.9 Glucose 92 Serum Osmolality Calcium 8.4 L Phosphorus 3.9 Magnesium 2.2 Total Bilirubin Direct Bilirubin AST ALT Alkaline Phosphatase Total Protein Albumin Globulin Lipase TSH 3.12 Urine Osmolality Ur Random Sodium ASSESSMENT/PLAN: 1) Somulence. Assessment: -May have bee due to methadone, but he has also had wide swings in his level of energy/alert and since the time of diagnosis. -Previous check of serum cortisol, thyroid function and testosterone revealed only a mildly low testosterone level. -Pain is under good control presently. -Okay for discharge today. Plan: -Hold methadone. -Continue oxycodone 5-10 mg every 4-6 hours as needed for pain. -Continue Ritalin on an as-needed basis as well. 2) Metastatic neuroendocrine tumor potentially of gastric origin. Assessment: -Subjectively has had response to capecitabine, ie decreased size and tenderness of subcutaneous metastases in the occipital area. Plan: -He will continue capecitabine twice a day will begin 5 days of temozolomide on Wednesday. -Discussed plan with patient.
--- NOTE | 2018-08-12 08:15 | PCM.DC ---
- Discharge Diagnoses Current Active Problems: Current Active and Chronic Problems (Last Updated 08/11/18 @ 23:05 by Ezequiel Zuniga MD) (1) Acute Encephalopathy, Multifactorial, Accidental Overdose Narcotics w/ Chronic Pain Syndrome, Hyponatremia, Progressive Metastatic Disease (2) Hyponatremia, Suspected Hypovolemic, Secondary to poor intake, dehydration (3) Dx Metastatic (bone and liver) Neuroendocrine tumor (4) Hypertension (5) Chronic Constipation, Neurogenic w/ metastatic disease as noted #3 (6) GERD: PPI. You will use the following diet at home:: Regular Your food should be the consistency of: Regular Your liquids should be the consistency of: Regular/Thin Discharge Activity: Return to Normal Activity May resume sexual activity in: No Restrictions Weight Bearing Status: Weight bearing as tolerated Call your doctor if you observe: Fever of 101 or Higher, Inability to urinate, Inability to have a bowel movement, Shortness of breath, Dizziness, Fainting spells, Chest pain, Uncontrolled pain Instructions: ED Dehydration, Dehydration, ED Overdose Opiate Additional Instructions: Dr. Booker has asked that we hold your methadone. Please follow-up with him to review additional pain options per his preference. Please have repeat basic metabolic panel with your PCP or Dr. Booker at follow-up. Allergies/Adverse Reactions: Allergies DUST Allergy (Uncoded 08/11/18 17:45) Other Medications to take at Discharge Capecitabine 1,000 mg PO BID 08/11/18 Dicyclomine HCl [Bentyl] 10 mg PO 4X/DAY 08/11/18 DiphenhydrAMINE [Benadryl] 25 mg PO QHS PRN PRN 08/11/18 Fluticasone 0.05% [Flonase Nasal [place]] 1 spray NASAL PRN PRN 08/11/18 Lactulose 30 ml PO BID 08/11/18 Metaxalone [Skelaxin] 800 mg PO TID 08/11/18 Methylphenidate HCl [Ritalin] 5 mg PO BID 08/11/18 Metoclopramide HCl 10 mg PO Q6H 08/11/18 Naproxen Sod/Diphenhydram HCl [Aleve Pm Caplet] 2 tab PO QHS 08/11/18 Naproxen Sodium [Aleve] 440 mg PO BID PRN PRN 08/11/18 Pantoprazole Sodium [Protonix] 20 mg PO DAILY 08/11/18 Sennosides/Docusate Sodium [Senna Plus Tablet] 1 tab PO BID 08/11/18 Temazepam [Restoril] 7.5 mg PO QHS 08/11/18 Temozolomide 300 mg PO DAILY 08/11/18 Amlodipine [Norvasc] 5 mg PO DAILY #0 08/12/18 Primary Care Physician: Samy Lewis MD [Primary Care Provider] - Please follow up with your Primary Care Physician in: Follow-up within 3-5 days. Test Results: Test results from this visit will be discussed in further detail at your follow-up appointment, if applicable. Please Follow Up With: Anastacio Booker DO When: Follow-up as discussed w/ Dr. Booker or within 1 week. Proposed Discharge Date: 08/12/18
--- NOTE | 2018-08-12 08:27 | CON.PCM_ITS ---
Problem List (1) Acute encephalopathy Status: Acute (2) Neuroendocrine cancer Status: Chronic - Consult Date of Consult: 08/12/18 - Reason for Consult HPI: Patient is 52-year-old male had a past medical history significant for asthma (stable symptoms since childhood) who over the 2 years prior to initial evaluation here had been experiencing a symptom complex characterized by a sensation of abdominal bloating/constipation and pain. These episodes were getting more frequent in the few months prior to evaluation. Also during these episodes he'd have significant hypertension. ? The only consistent triggering factor was going more than 4-6 hours without eating. ? He was evaluated urgent care for these complaints. A CT scan the abdomen was performed that demonstrated findings consistent with hepatic metastases. ? He underwent biopsy. Results demonstrated neuroendocrine tumor. Ki-67 was approximately 30%. ? CT of the chest and brain on 03/24/2018 were unremarkable. There were a few indeterminate small left lower lung nodules along with a small nodule in the right lung that was consistent with granuloma. CT abdomen pelvis demonstrated findings are highly suspicious for metastatic disease of unknown primary. ? Neuroendocrine PET imaging revealed foci of increased activity in left parotid region and the suboccipital cutaneous area as well as multiple foci of increased activity in the liver nearly diffuse. There was focal increased activity in the gastric region most pronounced along the proximal gastric wall. There is also focal activity in the gastroduodenal junction area adjacent to the left lobe of liver. Multiple foci of increased activity were noted throughout the axial and appendicular skeleton.? ? He underwent an EGD 04/22/2018 and was found to have localized nodular mucosin the duodenal bulb. Biopsies were obtained. The gastric antral wall was noted to be normal. There was a medium size, ulcerated non-circumferential mass with losing and stigmata of recent bleed in the gastric fundus. Biopsies were obtained. Fulguration of the gastric fundus was performed to stop the bleeding. This was by way of argon plasma. On colonoscopy performed same day, he was noted to have congestive mucosin at the ileocecal valve. Examination was otherwise normal. ? He was initially treated with lanreotide a somatostatin analogue. His constipation and pain improved along with an increase in energy approximately 2 weeks after first injection. However by about 8 weeks palliative effect was lost. He was seen at [facility] for second opinion. Regimen of capecitabine/temozolomide was recommended. He started temozolomide about a week ago. He has not yet started temozolomide. The other symptomatic issues have been profound fatigue, severe constipation which seems to be neurogenic, i.e. he has soft stools when he is able to go and pain. He is also been hypothermic. He's not have evidence of fever since diagnosis. His been on a regimen of methadone 2.5 mg every 8 hours along with Ritalin. Earlier this week he had extreme difficulty with nausea but this was attributed to Roxanol. He is no longer using that. Yesterday he was more lethargic than usual and his is having a hard time arousing him. He was brought to the ED. Methadone has been held. This morning he is awake and alert. He denies pain. He's not had nausea and about 2 days. No vomiting in several days. Allergies DUST Allergy (Uncoded 08/11/18 17:45) Other Current Medications Amlodipine Besylate (Norvasc) 5 mg PO DAILY [facility] Bisacodyl (Dulcolax) 5 mg PO DAILY PRN PRN PRN Reason: Constipation Dicyclomine HCl (Bentyl) 10 mg PO ACHS [facility] Last Admin: 08/12/18 07:01 Dose: 10 mg Diphenhydramine HCl (Benadryl) 50 mg PO QHS [facility] Last Admin: 08/11/18 23:07 Dose: 50 mg Enoxaparin Sodium (Lovenox) 40 mg SC DAILY@1000 [facility] Fluticasone Propionate (Flonase Nasal [place]) 1 spray NASAL DAILY PRN PRN PRN Reason: ALLERGIES Sodium Chloride () 1,000 mls @ 100 mls/hr IV .Q10H [facility] Stop: 08/12/18 16:30 Last Admin: 08/11/18 23:06 Dose: 100 mls/hr Lactulose (Chronulac, Cephulac) 20 gm PO BID [facility] Last Admin: 08/11/18 23:08 Dose: 20 gm Magnesium Hydroxide (Milk Of Magnesia) 30 ml PO DAILY PRN PRN PRN Reason: Constipation Methylphenidate HCl (Ritalin (G)) 5 mg PO 1000,1800 [facility] Metoclopramide HCl (Reglan) 10 mg PO Q6 [facility] Last Admin: 08/12/18 07:03 Dose: 10 mg Naproxen (Naprosyn) 500 mg PO BID PRN PRN PRN Reason: PAIN Naproxen (Naprosyn) 500 mg PO QHS [facility] Last Admin: 08/11/18 23:08 Dose: 500 mg Non-Formulary Medication (Capecitabine) 1,000 mg PO BID [facility] Non-Formulary Medication (Temozolomide [Temozolomide]) 300 mg PO DAILY [facility] Pantoprazole Sodium (Protonix) 20 mg PO DAILY [facility] Senna/Docusate Sodium (Senokot-S, Soni-Colace) 1 tablet PO BID [facility] Last Admin: 08/11/18 23:09 Dose: 1 tablet Sodium Chloride () 5 - 30 ml IV UD PRN PRN Reason: SALINE FLUSH SOC: He is a lifelong nonsmoker. He has never used alcohol. He is employed with a local [employer] business. he lives with his in [place]. FAM: Mother had colon cancer. ROS: Constitutional: See above. Neuro: Denies TRENT (Although can have sharp occipital pain from the subcutaneous metastases) and vertigo. Denies symptoms of neuropathy. HEENT: No recent change in voice, vision or hearing. Resp: Denies cough, wheeze and hemoptysis. Denies shortness of breath at rest. CVS: Denies exertional chest pain, PND, orthopnea and LE edema. GI: Denies dysgeusia. Denies symptoms of stomatitis. Denies dysphagia and odynophagia. : Denies dysuria or gross hematuria. No symptoms of bladder outlet obstruction. Endo: See above. Musculoskeletal: See above. Derm: Denies rash. Denies jaundice and diffuse pruritis. Heme: Denies unusual bleeding and unexplained bruising. Psych: Normal mood. PHYSICAL EXAM: Vitals: Vital Signs Temp 97.8 F 08/12/18 07:53 Pulse 77 08/12/18 07:55 Resp 16 08/12/18 07:53 BP 155/94 H 08/12/18 07:53 Pulse Ox 96 08/12/18 07:55 Intake & Output 08/10/18 08/11/18 08/12/18 23:59 23:59 23:59 Intake Total 161 / 161 Output Total 600 / 600 Balance -439 / -439 Weight: 62.6 kg Intake: IV fluid/meds 161 / 161 Output: Urine 600 / 600 Well-appearing and in no acute distress. EYES: Sclerae are anicteric bilaterally. NECK: Supple. LYMPHATIC: There is no palpable cervical, supraclavicular, axillary or adenopathy. RESPIRATORY: Inspiratory breath sounds are of normal intensity in all sewell. No rales, wheezes or rhonchi. CARDIOVASCULAR: Rhythm is regular. Normal intensity S1/S2. ABDOMEN: The abdomen is nondistended. Extremities: No swelling or edema. SKIN: No jaundice or rash. NEUROLOGIC: Asake and alert. 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 No focal motor weakness. MUSCULOSKELETAL: No muscle wasting. Laboratory Results - last 24 hr 08/11/18 08/11/18 08/11/18 18:16 18:16 18:16 WBC 11.1 H RBC 4.52 L Hgb 13.3 Hct 38.8 L MCV 85.8 MCH 29.4 MCHC 34.3 RDW 14.7 H RDW Differential 44.6 H Plt Count 671 H MPV 8.9 Immature Gran % (Auto) 0.600 Neut % (Auto) 67.1 Lymph % (Auto) 19.1 [place] % (Auto) 12.4 H Eos % (Auto) 0.3 Baso % (Auto) 0.5 Absolute Neuts (auto) 7.5 Absolute Lymphs (auto) 2.12 Total Counted Not Reportable Sodium 130 L Potassium 4.3 Chloride 93 L Carbon Dioxide 30.0 Anion Gap 7 BUN 10 Creatinine 0.99 Estim Creat Clear Calc 78.54 Est GFR (MDRD) Af Amer 102 Est GFR (MDRD) Non-Af 85 BUN/Creatinine Ratio 10.1 Glucose 127 H Serum Osmolality 269 L Calcium 8.9 Phosphorus Magnesium Total Bilirubin 0.70 Direct Bilirubin 0.46 H AST 34 ALT 31 Alkaline Phosphatase 309 H Total Protein 7.4 Albumin 2.5 L Globulin 4.9 H Lipase 95 TSH Urine Osmolality Ur Random Sodium 08/11/18 08/11/18 08/11/18 18:16 21:00 21:00 WBC RBC Hgb Hct MCV MCH MCHC RDW RDW Differential Plt Count MPV Immature Gran % (Auto) Neut % (Auto) Lymph % (Auto) [place] % (Auto) Eos % (Auto) Baso % (Auto) Absolute Neuts (auto) Absolute Lymphs (auto) Total Counted Sodium Potassium Chloride Carbon Dioxide Anion Gap BUN Creatinine Estim Creat Clear Calc Est GFR (MDRD) Af Amer Est GFR (MDRD) Non-Af BUN/Creatinine Ratio Glucose Serum Osmolality Calcium Phosphorus Magnesium Total Bilirubin Direct Bilirubin AST ALT Alkaline Phosphatase Total Protein Albumin Globulin Lipase TSH 2.81 Urine Osmolality 242 Ur Random Sodium 69 08/12/18 08/12/18 08/12/18 06:04 06:04 06:04 WBC 8.9 RBC 3.90 L Hgb 11.5 L Hct 33.4 L MCV 85.6 MCH 29.5 MCHC 34.4 RDW 14.6 RDW Differential 44.0 H Plt Count 570 H MPV 8.6 Immature Gran % (Auto) 0.600 Neut % (Auto) 55.0 Lymph % (Auto) 30.4 [place] % (Auto) 13.0 H Eos % (Auto) 0.6 Baso % (Auto) 0.4 Absolute Neuts (auto) 4.9 Absolute Lymphs (auto) 2.72 Total Counted Not Reportable Sodium 135 L Potassium 4.2 Chloride 100 Carbon Dioxide 30.0 Anion Gap 5 BUN 10 Creatinine 0.84 Estim Creat Clear Calc 93.15 Est GFR (MDRD) Af Amer 123 Est GFR (MDRD) Non-Af 102 BUN/Creatinine Ratio 11.9 Glucose 92 Serum Osmolality Calcium 8.4 L Phosphorus 3.9 Magnesium 2.2 Total Bilirubin Direct Bilirubin AST ALT Alkaline Phosphatase Total Protein Albumin Globulin Lipase TSH 3.12 Urine Osmolality Ur Random Sodium ASSESSMENT/PLAN: 1) Somulence. Assessment: -May have bee due to methadone, but he has also had wide swings in his level of energy/alert and since the time of diagnosis. -Previous check of serum cortisol, thyroid function and testosterone revealed only a mildly low testosterone level. -Pain is under good control presently. -Okay for discharge today. Plan: -Hold methadone. -Continue oxycodone 5-10 mg every 4-6 hours as needed for pain. -Continue Ritalin on an as-needed basis as well. 2) Metastatic neuroendocrine tumor potentially of gastric origin. Assessment: -Subjectively has had response to capecitabine, ie decreased size and tenderness of subcutaneous metastases in the occipital area. Plan: -He will continue capecitabine twice a day will begin 5 days of temozolomide on Wednesday. -Discussed plan with patient.
--- NOTE | 2018-08-12 09:20 | CASEMGMT ---
Social Work Note SW received referral for Palliative Care consult. SW in to discuss Palliative Care. Pt states that he has pain management at [facility] and denied referral for Palliative Care at this time. SW provided pt with brochure in the event pt wishes to follow up with services at a later time. Erin Posey CATALOG LIBRARIAN, CAD DESIGNER DRAFTER
--- NOTE | 2018-08-12 09:22 | PCM.DC.SUM ---
Discharge Date and Diagnosis - Problem List Patient Problems: Active and Suspected Problems (Last Updated 08/11/18 @ 23:05 by Eezquiel Zuniga MD) Acute encephalopathy (Acute) Hyponatremia (Acute) Date of Admission: 08/11/18 Date of Discharge: 08/12/18 - Primary Discharge Diagnosis Active and Suspected Problems (Last Updated 08/11/18 @ 23:05 by Ezequiel Zuniga MD) (1) Acute Encephalopathy, Multifactorial, Accidental Overdose Narcotics w/ Chronic Pain Syndrome, Hyponatremia, Progressive Metastatic Disease (2) Hyponatremia, Suspected Hypovolemic, Secondary to poor intake, dehydration (3) Dx Metastatic (bone and liver) Neuroendocrine tumor (4) Hypertension (5) Chronic Constipation, Neurogenic w/ metastatic disease as noted #3 (6) GERD: PPI. - Secondary Discharge Diagnosis Chronic Problems (Last Updated 08/11/18 @ 23:05 by Ezequiel Zuniga MD) Neuroendocrine cancer (Chronic) Hospital Course and Treatment Dr. Booker Oncology Operations: None Procedures: None Summary of Care Provided: The patient is a 52 y/o M w/ PMHx: Recently Dx Metastatic (bone and liver) Neuroendocrine tumor diagnosed March 2018 following w/ Dr. Booker recently started on methadone and morphine for severe pain; however with onset morphine intolerance secondary to N/V with increase of his methadone with onset increased lethargy. Admitted to OR, methadone held, gently hydrated, treatment of hyponatremia felt likely hypovolemic hyponatremia secondary to poor intake, fall precautions, PT and OT assisted, CM consultation. Given his history of metastatic liver disease discussed w/ Dr. Booker and patient better to avoid agents which may be markedly affected by liver metabolism. During admission, patient w/ hyponatremia, likely secondary to poor intake w/ increased lethargy with narcotic regimen w/ admission Na 130, gently hydrated, repeat 08/12/18 Na 135, Nel 69, UOsm 242, TSH 3.12, cortisol pending. Evaluation per Dr. Booker w/ planned repeat BMP with PCP versus Oncology at follow-up with encouraged appropriate hydration. Patient discharged to home in stable improved condition with discontinuation of his narcotic methadone regimen w/ follow-up with his PCP and Oncology. Also during admission BP increased thus recommended continued scheduled norvasc from now onward instead of PRN regimen only. Discharge Activity: Return to Normal Activity May resume sexual activity in: No Restrictions Weight Bearing Status: Weight bearing as tolerated Call your doctor if you observe: Fever of 101 or Higher, Inability to urinate, Inability to have a bowel movement, Shortness of breath, Dizziness, Fainting spells, Chest pain, Uncontrolled pain Home Medications: Medications to take at Discharge Capecitabine 1,000 mg PO BID 08/11/18 Dicyclomine HCl [Bentyl] 10 mg PO 4X/DAY 08/11/18 DiphenhydrAMINE [Benadryl] 25 mg PO QHS PRN PRN 08/11/18 Fluticasone 0.05% [Flonase Nasal [place]] 1 spray NASAL PRN PRN 08/11/18 Lactulose 30 ml PO BID 08/11/18 Metaxalone [Skelaxin] 800 mg PO TID 08/11/18 Methylphenidate HCl [Ritalin] 5 mg PO BID 08/11/18 Metoclopramide HCl 10 mg PO Q6H 08/11/18 Naproxen Sod/Diphenhydram HCl [Aleve Pm Caplet] 2 tab PO QHS 08/11/18 Naproxen Sodium [Aleve] 440 mg PO BID PRN PRN 08/11/18 Pantoprazole Sodium [Protonix] 20 mg PO DAILY 08/11/18 Sennosides/Docusate Sodium [Senna Plus Tablet] 1 tab PO BID 08/11/18 Temazepam [Restoril] 7.5 mg PO QHS 08/11/18 Temozolomide 300 mg PO DAILY 08/11/18 Amlodipine [Norvasc] 5 mg PO DAILY #0 08/12/18 Primary Care Physician: Samy Lewis MD [Primary Care Provider] - Please follow up with your Primary Care Physician in: Follow-up within 3-5 days. Please Follow Up With: Anastacio Booker DO When: Follow-up as discussed w/ Dr. Booker or within 1 week. Patient Instructions: Dehydration, ED Dehydration, ED Overdose Opiate Disposition: Home Minutes spent on discharge:: 25 Patient Condition:: Fair Medical Necessity - Tobacco Use Smoking Status: Never smoker Tobacco Use: Non-smoker Meaningful Use Info Meaningful Use Diagnoses (Choose all that apply): None applicable Code Visit OBSV E&M: 74482 Observation care discharge
[2018-08-12] MEDS: Senna/Docusate Sodium 1 Tablet PO (10:10)
[2018-08-12] MEDS: Pantoprazole Sodium 20 MG Tablet PO (10:10)
[2018-08-12] MEDS: Lactulose 20 GM/30 ML UDC PO (10:10)
[2018-08-16 08:35] LABS: Anti-Mitochondrial AB <20.0 Units (0.0-20.0)
== END 2018-08-12 10:30 | disposition home or self-care (01) ==
LOC: ED 18:30 → MS3 20:05
PROVIDERS: Admitting Provider Hospitalist; Emergency Provider Emergency Medicine; Family Provider Family Medicine; PCP Family Medicine; Visit Provider Family Medicine
DX: G92 Toxic encephalopathy (principal); T40.3X1A Poisoning by methadone, accidental (unintentional), initial encounter; G89.4 Chronic pain syndrome; Z79.899 Other long term (current) drug therapy; Z79.891 Long term (current) use of opiate analgesic; E87.1 Hypo-osmolality and hyponatremia; K59.09 Other constipation; I10 Essential (primary) hypertension; C72.9 Malignant neoplasm of central nervous system, unspecified; C78.7 Secondary malignant neoplasm of liver and intrahepatic bile duct; C79.51 Secondary malignant neoplasm of bone; G89.3 Neoplasm related pain (acute) (chronic); K21.9 Gastro-esophageal reflux disease without esophagitis
CPT/HCPCS: 36415; 80048; 80076; 82533; 83516; 83690; 83735; 83930; 83935; 84100; 84300; 84443; 85025; 96360; 96361; 97802; 99218; 99283; J7030; J7040; A4216; G0378

== ENCOUNTER 2018-11-01 11:34 | Emergency (ER) | payer OTHER, SELFPAY ==
[2018-11-01 11:37] VITALS: BP 170/107; PULSE 94; RESP 18; TEMP 36.4; O2SAT 99; BMI 21.9
[2018-11-01 12:17] LABS: Absolute Lymphocyte Count 1.45 X10^3/ul (0.83-4.51); Absolute Neutrophil Count 5.1 X10^3/uL (2.0-7.7); Basophil% 1.3 % (0-1); Eosinophil# 0.04 X10^3/uL; Eosinophils% 0.5 % (0-5); Hematocrit 42.1 % (40-54); Hemoglobin 14.3 g/dl (13.0-16.5); Lymphocyte # 1.45 X10^3/ul (4.0); Lymphocyte % 18.1 % (19-41); Mean Corpuscular Hgb 33.5 pg (27.0-32.0); Mean Corpuscular Volume 98.6 fL (80-94); Mean Platelet Vol. 9.3 fl (6.2-12.0); Monocyte# 1.26 X10^3/uL; Monocyte% 15.8 % (0-10); Neutrophil # 5.13 X10^3/uL (2.7-7.7); Neutrophil % 64.2 % (47-70); Platelet Count 266 K/mm3 (150-450); RBC Distribution Width CV 17.8 % (11.6-14.6); RBC Distribution Width SD 64.5 fl (35.1-43.9); Red Blood Count 4.27 M/mm3 (4.6-6.2)
[2018-11-01 12:18] LABS: POSITIVE COUNT NO; POSITIVE DIFFERENTIAL NO; POSITIVE MORPHOLOGY NO
[2018-11-01] MEDS: 0.9% Normal Saline 1,000 ML 1000 ML IV (12:19)
[2018-11-01] MEDS: HYDROmorphone 1 MG/ML Syringe IV ×2 (12:20→13:23)
[2018-11-01] MEDS: proMETHazine 25 MG/ML Syringe 12.5 MG IV (12:20)
[2018-11-01 12:33] LABS: ALB/GLOB Ratio 1.1 RATIO (0.9-2.4); AST(SGOT) 36 U/L (15-37); Alanine Aminotransfer ALT/SGPT 49 U/L (16-61); Alkaline Phosphatase 154 U/L (45-117); Anion Gap 9 (5-15); BUN 16 mg/dL (7-18); BUN/Creat Ratio 11.9 RATIO (10-20); Chloride 102 mmol/L (98-107); Creatinine, Serum 1.35 mg/dL (0.70-1.30); EST Glomerular Filtration Rate 59 mL/min (>60); Est Glom Filt Rate - Afr Amer 72 mL/min (>60); Estimated Creatinine Clearance 58.15 ml/min; Globulin 3.7 g/dL (2.2-4.2); Glucose 124 mg/dL (74-106); Lipase 152 U/L (73-393); Potassium 4.2 mmol/L (3.5-5.1); Protein, Total 7.7 g/dL (6.4-8.2); Sodium Level 137 mmol/L (136-145)
--- NOTE | 2018-11-01 12:56 | ED.VISSUMM ---
- ER Visit Summary Date of Service: 11/01/18 Chief Complaint: [Back pain] History of Present Illness: The patient is a 53 M [presents to the emergency department with complaint of back pain and whole body pain that started 3 days ago. Patient states that he is currently being treated with chemotherapy for a neuroendocrine carcinoma. Patient states that typically when he starts his chemo cycle about a week into his cycle he will develop similar type pains that usually resolve after a couple of days. Patient states this is the longest that his symptoms have lasted. Patient's last chemo dose was last evening. Patient denies any injury to his back. He denies any urinary symptoms. He denies any fever. Patient's had nausea and states that because of the pain he was unable to sleep very much last night. Patient does take Percocet at home for pain as needed however it tends to cause him constipation which she is already had an issue with in the past. Patient states however his last bowel movement was a day and a half ago. Patient denies any abdominal pain. Patient apparently does have metastasis to the bone and liver as well as the stomach.] Physical Examination: [HEENT-PERRLA, EOMI. Cranial nerves II through XII grossly intact. TMs clear. Mucous membranes moist. No adenopathy. Cardiovascular-regular rate and rhythm without murmur or ectopy Lungs-clear to auscultation, chest wall stable without crepitus or subcu emphysema Abdomen-normoactive bowel sounds, soft, nontender, no rebound or rigidity, no peritoneal signs. Extremities-intact ?4, normal range of motion, normal pulses, atraumatic] Test Results: [CBC with differential obtained showing of 8.0, hemoglobin 14, hematocrit 42, placed 266. Chemistries unremarkable. LFTs unremarkable. Ammonia was 14.] Emergency Department Course and Treatment: [Patient received a liter normal same fluid bolus and was medicated with Dilaudid 1 mg IV. Patient was given a second dose of Dilaudid.] Treatment Plan: [Patient case was discussed with Dr. Anastacio Booker who knows patient well who asked that we order Duragesic patch for the patient 12.5 mcg and if that is not available to do a 25 mcg patch. Patient to follow-up with Dr. Booker's office tomorrow] Disposition: [Discharged home in stable condition] Impression: [Acute pain syndrome related to neuroendocrine carcinoma] This note was generated with [employer] dictation software. It may contain incorrect words, spelling, and punctuation that were not noted in review of the chart prior to signing ED Disposition - Plan for ED Patient: Chief Complaint: Back Referrals: Samy Lewis MD [Primary Care Provider] -
--- NOTE | 2018-11-01 13:05 | ED.DEP ---
ED Disposition - Plan for ED Patient: Chief Complaint: Back Instructions: ED Neck Back Pain General Prescriptions: fentaNYL patch [Duragesic Patch] 12 mcg TRANSDERM. Q3D 6 Days #2 patch Referrals: Samy Lewis MD [Primary Care Provider] - Anastacio Booker DO [STAFF PHYSICIAN] - 1 Day
[2018-11-01] MEDS: fentaNYL 25 MCG Patch TRANSDERM. (13:31)
[2018-11-01 13:41] VITALS: BP 184/107; PULSE 76; RESP 18; O2SAT 99
== END 2018-11-01 13:42 | disposition home or self-care (01) ==
PROVIDERS: Emergency Provider Emergency Medicine; Family Provider Family Medicine; PCP Family Medicine
DX: G89.3 Neoplasm related pain (acute) (chronic) (principal); C7A.8 Other malignant neuroendocrine tumors; C79.51 Secondary malignant neoplasm of bone; C78.7 Secondary malignant neoplasm of liver and intrahepatic bile duct; C78.89 Secondary malignant neoplasm of other digestive organs; Z79.899 Other long term (current) drug therapy
CPT/HCPCS: 80053; 82140; 83690; 85025; 96374; 96375; 96376; 99283; J7030; A4216

== ENCOUNTER 2018-11-02 01:16 | Emergency (ER) | payer OTHER, SELFPAY ==
[2018-11-01 11:37] VITALS: BMI 21.9
[2018-11-02 01:16] VITALS: BP 164/109; PULSE 100; RESP 18; TEMP 36.4; O2SAT 100; BMI 21.5
[2018-11-02 01:26] VITALS: BP 164/109; PULSE 99; RESP 17; O2SAT 100
[2018-11-02] MEDS: HYDROmorphone 1 MG/ML Syringe IV (01:54)
[2018-11-02] MEDS: Ondansetron 4 MG/2 ML Vial IV (01:54)
--- NOTE | 2018-11-02 03:02 | ED.DCSUM_ITS ---
- ER Visit Summary Date of Service: 11/02/18 Chief Complaint: Back pain History of Present Illness: The patient is a 53 M who is on chemotherapy for neuroendocrine cancer. Patient was seen in the ER yesterday for whole body pain that is worse in his back with radiation down his legs. Workup was unremarkable and pain was controlled with Dilaudid. Patient was discussed with Dr. Booker. He asked that the ED physician add a fentanyl patch to his home oxycodone regimen and follow-up in the office later today. Patient reports increased pain and unable to sleep tonight. He denies any new injury. He is wearing his fentanyl patch and has been taking his oxycodone every 6 hours. Patient does have neuroendocrine cancer with tumor in the lung, bone, and liver. Physical Examination: Blood pressure is 164/109, otherwise vitals normal. Patient is lying in bed no acute distress. Head neck examination is unremarkable. Heart is regular rate and rhythm. Lungs sounds are clear. Abdomen is soft with mild right upper quadrant tenderness. Patient states this is a known site of a tumor. Lower extremity examination reveals good strength and sensation and strong distal pulses. There are no focal neuro deficits. Test Results: Workup yesterday was reviewed. Emergency Department Course and Treatment: Patient was given 1 mg of IV Dilaudid here along with Zofran. On repeat examination he does feel improved. He is given a home pack of Dilaudid tabs to use in place of his oxycodone until he can see Dr. Booker later today. Treatment Plan: [] Disposition: Discharge Impression: Back pain with history of neuroendocrine cancer This note was generated with [employer] dictation software. It may contain incorrect words, spelling, and punctuation that were not noted in review of the chart prior to signing ED Disposition - Plan for ED Patient: Disposition: Home or Assisted Living Chief Complaint: Back Instructions: ED Neck Back Pain General Referrals: Anastacio Booker DO [STAFF PHYSICIAN] - Additional Instructions: You are to follow-up with Dr Booker today. We have provided you with a home pack of Dilaudid tabs you can use for pain in place of your Oxycodone. Do not take t hese medications together.
[2018-11-02] MEDS: HYDROmorphone 2 MG TABLET PO (03:28)
[2018-11-02 03:32] VITALS: BP 179/113; PULSE 84; RESP 15; O2SAT 96
== END 2018-11-02 03:49 | disposition home or self-care (01) ==
PROVIDERS: Emergency Provider Emergency Medicine; Family Provider Family Medicine; PCP Family Medicine
DX: M54.9 Dorsalgia, unspecified (principal); C7A.8 Other malignant neuroendocrine tumors; I10 Essential (primary) hypertension; Z79.891 Long term (current) use of opiate analgesic; Z79.899 Other long term (current) drug therapy
CPT/HCPCS: 96374; 96375; 99285; A4216; J2405

== ENCOUNTER 2018-11-18 11:38 | Observation (INO) | payer OTHER, SELFPAY ==
[2018-11-18] VITALS (7 sets, daily range): BP systolic 150–184; BP diastolic 94–122; PULSE 91–115; RESP 16–18; TEMP 36.6; O2SAT 98–100; BMI 21.7; BMI 21.8; BMI 21.6
[2018-11-18 12:15] LABS: Absolute Lymphocyte Count 1.42 X10^3/ul (0.83-4.51); Absolute Neutrophil Count 11.3 X10^3/uL (2.0-7.7); Basophil# 0.03 X10^3/uL; Basophil% 0.2 % (0-1); Eosinophil# 0.01 X10^3/uL; Eosinophils% 0.1 % (0-5); Hematocrit 42.7 % (40-54); Hemoglobin 14.4 g/dl (13.0-16.5); Lymphocyte # 1.42 X10^3/ul (4.0); Lymphocyte % 9.5 % (19-41); Mean Corp Hgb Conc 33.7 g/gl (32-36); Mean Corpuscular Hgb 33.6 pg (27.0-32.0); Mean Corpuscular Volume 99.8 fL (80-94); Mean Platelet Vol. 10.1 fl (6.2-12.0); Monocyte# 2.17 X10^3/uL; Monocyte% 14.5 % (0-10); Neutrophil # 11.31 X10^3/uL (2.7-7.7); Neutrophil % 75.6 % (47-70); Platelet Count 346 K/mm3 (150-450); RBC Distribution Width CV 15.5 % (11.6-14.6); RBC Distribution Width SD 56.4 fl (35.1-43.9); Red Blood Count 4.28 M/mm3 (4.6-6.2)
[2018-11-18 12:16] LABS: Differential Indicated SCAN CRITERIA MET; POSITIVE COUNT NO; POSITIVE DIFFERENTIAL YES; POSITIVE MORPHOLOGY NO
[2018-11-18] MEDS: HYDROmorphone 1 MG/ML Syringe IV ×3 (12:21→16:12)
[2018-11-18] MEDS: Ondansetron 4 MG/2 ML Vial IV ×3 (12:21→21:02)
[2018-11-18] MEDS: 0.9% Normal Saline 1,000 ML 1000 ML IV (12:21)
[2018-11-18 12:25] LABS: AST(SGOT) 67 U/L (15-37); Alanine Aminotransfer ALT/SGPT 103 U/L (16-61); Alkaline Phosphatase 270 U/L (45-117); Anion Gap 10 (5-15); BUN 16 mg/dL (7-18); BUN/Creat Ratio 14.8 RATIO (10-20); Calcium,Total 9.1 mg/dL (8.5-10.1); Chloride 101 mmol/L (98-107); Creatinine, Serum 1.08 mg/dL (0.70-1.30); EST Glomerular Filtration Rate 77 mL/min (>60); Est Glom Filt Rate - Afr Amer 93 mL/min (>60); Estimated Creatinine Clearance 72.16 ml/min; Globulin 4.1 g/dL (2.2-4.2); Glucose 127 mg/dL (74-106); Potassium 3.9 mmol/L (3.5-5.1); Protein, Total 8.1 g/dL (6.4-8.2); Sodium Level 136 mmol/L (136-145)
--- NOTE | 2018-11-18 15:15 | ED.VISSUMM ---
- ER Visit Summary Date of Service: 11/18/18 Chief Complaint: Vomiting History of Present Illness: The patient is a 53 M status post a new chemotherapeutic agent yesterday presents with nausea and vomiting and quite a bit of pain since he has not been able to tolerate his p.o. opiate analgesics at home. His pain is mostly in the back. This happened in the past about 3 weeks ago. Physical Examination: Patient appears cachectic, he does not appear toxic. He has clear lungs, slightly tachycardic soft and nontender abdomen. Emergency Department Course and Treatment: Patient has slight leukocytosis, however he did get dexamethasone yesterday. Otherwise he has an unremarkable workup. However despite IV fluids and analgesics I could not improve his nausea vomiting I discussed the patient with Dr. Booker, patient will be admitted to the hospitalist service. Disposition: [Admit stable Impression: Nausea vomiting This note was generated with [employer] dictation software. It may contain incorrect words, spelling, and punctuation that were not noted in review of the chart prior to signing ED Disposition - Plan for ED Patient: Chief Complaint: Nausea/Vomiting Referrals: Samy Lewis MD [Primary Care Provider] -
--- NOTE | 2018-11-18 15:19 | ED.DCSUM_ITS ---
- ER Visit Summary Date of Service: 11/18/18 Chief Complaint: Vomiting History of Present Illness: The patient is a 53 M status post a new chemotherapeutic agent yesterday presents with nausea and vomiting and quite a bit of pain since he has not been able to tolerate his p.o. opiate analgesics at home. His pain is mostly in the back. This happened in the past about 3 weeks ago. Physical Examination: Patient appears cachectic, he does not appear toxic. He has clear lungs, slig htly tachycardic soft and nontender abdomen. Emergency Department Course and Treatment: Patient has slight leukocytosis, however he did get dexamethasone yesterday. Otherwise he has an unremarkable workup. However despite IV fluids and analgesics I could not improve his nausea vomiting I discussed the patient with Dr. Booker, patient will be admitted to the hospitalist service. Disposition: [Admit stable Impression: Nausea vomiting This note was generated with [employer] dictation software. It may contain incorrect words, spelling, and punctuation that were not noted in review of the chart prior to signing ED Disposition - Plan for ED Patient: Chief Complaint: Nausea/Vomiting Referrals: Samy Lewis MD [Primary Care Provider] -
--- NOTE | 2018-11-18 15:45 | PCM.HP.STD ---
Problem List (1) Intractable nausea and vomiting Status: Acute Qualifiers: Vomiting type: unspecified Qualified Code(s): R11.2 - Nausea with vomiting, unspecified History of Present Illness Date of Admission: 11/18/18 Chief Complaint: intractable nausea and vomiting. The patient is a 53 year old M who started his new chemotherapy for his metastatic neuroendocrine tumor on the . Since then, patient has been having intractable nausea and vomiting. Prior to him getting chemotherapy, while he was at the infusion center, patient stated he has back pain rating from the shoulders down to his buttocks. And patient does take pain medications sparingly but he appears time where he is actually pain-free but but needs to be pain-free which is complicates his nausea and vomiting. Patient fluid challenge in the emergency room but threw that up. Patient did receive dexamethasone yesterday and 13,000. [] Past Medical History Past Medical History (Chronic Problems): Chronic Problems (Last Updated 08/11/18 @ 23:05 by Ezequiel Zuniga MD) Neuroendocrine cancer (Chronic) Medical History: Medical History (Last Updated 08/11/18 @ 23:05 by Ezequiel Zuniga MD) Neuroendocrine cancer C7A.8 Allergies DUST Allergy (Uncoded 11/18/18 11:41) Other Home Medications: Ambulatory Orders Medication Instructions Recorded Dicyclomine HCl [Bentyl] 10 mg PO 4X/DAY PRN 08/11/18 DiphenhydrAMINE [Benadryl] 25 mg PO QHS PRN PRN 08/11/18 Fluticasone 0.05% [Flonase Nasal 1 spray NASAL PRN PRN 08/11/18 [place]] Lactulose 30 ml PO BID 08/11/18 Metaxalone [Skelaxin] 800 mg PO TID PRN 08/11/18 Metoclopramide HCl 10 mg PO Q6H PRN 08/11/18 Naproxen Sodium [Aleve] 440 mg PO BID PRN PRN 08/11/18 Pantoprazole Sodium [Protonix] 20 mg PO DAILY 08/11/18 Sennosides/Docusate Sodium [Senna 1 tab PO BID 08/11/18 Plus Tablet] Oxycodone [Oxyir] 5 mg PO Q6H PRN PRN 11/02/18 Amlodipine [Norvasc] 10 mg PO DAILY 11/18/18 HYDROmorphone tablet [Dilaudid] 2 - 4 mg PO Q3H PRN PRN 11/18/18 Melatonin 3 mg PO QHS PRN 11/18/18 Ondansetron [Zofran] 8 mg PO Q8H PRN PRN 11/18/18 Polyethylene Glycol 3350 [Miralax] 17 gm PO DAILY 11/18/18 Surgical History: - - fusion of wrist; silicon buckle left eye Smoking Status: Never smoker Tobacco Use: Non-smoker Alcohol: None Drugs: None - *Family History Maternal History Items: Cancer - colon Paternal History Items: Heart Disease - Dad had heart attack in his 70s Review of Systems Constitutional: Denies: Chills, Fever, Weight Change Eyes: Denies: Blurred vision, Double vision HEENT: Denies: Head Aches, Sinus Congestion, Sinus Drainage Cardiovascular: Denies: Chest Pain, Palpitations Respiratory: Denies: Cough, Shortness of breath at rest, Sputum production Gastrointestinal: Reports: Abdominal Pain, Constipation, Nausea, Vomiting. Denies: Diarrhea Genitourinary: Denies: Dysuria Musculoskeletal: Denies: Joint Pain, Joint Tenderness Skin: Denies: Rash, Wounds Neurological: Denies: Numbness, Tingling, Focal weakness Psychiatric: Denies: Anxiety, Depression Hematologic/ Lymphatic: Denies: Easy Bruising, Easy Bleeding, Hx of blood clot Comment: A 10 point review of systems were negative except as mentioned in the history of present illness and the other review of systems. VTE Information - Inpt Only VTE Present on Admission: No VTE Pharm Prophylaxis ordered?: Yes Patient Problems: Active and Suspected Problems (Last Updated 08/11/18 @ 23:05 by Ezequiel Zuniga MD) Intractable nausea and vomiting (Acute) - Physical Exam General: Alert, Cooperative, No apparent distress HEENT: Atraumatic, Normocephalic Oral: Moist Mucosa, No Gingival or Mucosal Lesions/ Ulcerations Neck: No Nodes, Thyroid Normal Size and Texture Lungs: Clear to auscultation, Normal air movement, No rhonchi, No wheeze Cardiovascular: Regular rate, Regular Rhythm, Normal S1, Normal S2, No murmurs Abdomen: Bowel Sounds Present, Soft, Non-Distended, Hypoactive Bowel Sounds, Tender Extremities: No clubbing, No cyanosis, No edema, Capillary Refill Less than 3 Seconds Skin: No rashes, No breakdown Musculoskeletal: - - No reproducible back pain. No paraspinal muscle tenderness. Psych/Mental Status: Normal Affect, Appropriate Vital Signs Temp Pulse Resp BP Pulse Ox 36.6 C 98 16 150/94 H 99 11/18/18 11:39 11/18/18 15:18 11/18/18 15:18 11/18/18 15:18 11/18/18 15:18 Oxygen Delivery Method Room Air Weight: 63.049 kg Body Mass Index (BMI) 21.7 Laboratory Tests Past 24 Hrs 11/18/18 11/18/18 12:04 12:04 WBC 15.0 H RBC 4.28 L Hgb 14.4 Hct 42.7 MCV 99.8 H MCH 33.6 H MCHC 33.7 RDW 15.5 H RDW Differential 56.4 H Plt Count 346 MPV 10.1 Immature Gran % (Auto) 0.100 Neut % (Auto) 75.6 H Lymph % (Auto) 9.5 L [place] % (Auto) 14.5 H Eos % (Auto) 0.1 Baso % (Auto) 0.2 Absolute Neuts (auto) 11.3 H Absolute Lymphs (auto) 1.42 Total Counted Not Reportable Differential Comment COMMENT Sodium 136 Potassium 3.9 Chloride 101 Carbon Dioxide 25.0 Anion Gap 10 BUN 16 Creatinine 1.08 Estim Creat Clear Calc 72.16 Est GFR (MDRD) Af Amer 93 Est GFR (MDRD) Non-Af 77 BUN/Creatinine Ratio 14.8 Glucose 127 H Calcium 9.1 Total Bilirubin 0.60 AST 67 H ALT 103 H Alkaline Phosphatase 270 H Total Protein 8.1 Albumin 4.0 Globulin 4.1 Albumin/Globulin Ratio 1.0 Assessment/Plan All Active Problems (Last Updated 08/11/18 @ 23:05 by Ezequiel Zuniga MD) Acute encephalopathy (Acute) Hyponatremia (Acute) Intractable nausea and vomiting (Acute) 1. Intractable nausea and vomiting Possibly chemotherapy-induced Patient will be on IV fluids and as needed Zofran for now Supportive management 2. Back pain Did review the patient's OARRS, he received 60 tablets of hydromorphone 2 mg on 02 November and 28 tablets of 5 mg oxycodone on 25 October. Patient did have toxic encephalopathy related with methadone Back in August. It was felt that is likely due to his hepatic metastasis, that he was not metabolizing medication as well that led to his encephalopathy at that time. I did discuss with the patient and his , that we will work with try to control his pain bigger since he is vomiting not able take his oral medications but it did express that he needs to be fully awake for him to have pain medications and to try to set up that we may not be able to completely eradicate his pain just in order to be judicious in regards to the narcotics so that he did not have another overdose. 3. Metastatic neuroendocrine tumor Likely the leukocytosis related with the Decadron that he had received yesterday Monitor Follow-up with Dr. Booker as outpatient 4. DVT prophylaxis with Lovenox 5. Advanced care planning: Patient wishes to have CPR, intubation and PEG tube. Therefore, the patient is full CODE STATUS. Code Visit OBSV E&M: 19002 Initial observation care L2
[2018-11-18] MEDS: Metoclopramide 10 MG/2 ML Vial IV (16:12)
[2018-11-18] MEDS: DiphenhydrAMINE 50 MG/ML Syringe 25 MG IV (16:12)
[2018-11-18] MEDS: 0.9% Normal Saline 1,000 ML 100 ML IV (17:39)
[2018-11-18] MEDS: Morphine 2 MG/ML Syringe IV (17:39)
[2018-11-18] MEDS: HYDROmorphone 0.5 MG/0.5 ML SYRINGE IV ×2 (19:06→23:24)
[2018-11-18] MEDS: 0.9% NaCl Peripheral Flush Adult/Peds IV (19:07)
[2018-11-18] MEDS: oxyCODONE 5 MG Tablet PO (20:38)
--- NOTE | 2018-11-18 20:46 | NURSING ---
Called pharmacy to request dose of Skelaxin PRN for this pt since it is not stocked in [facility].
[2018-11-18] MEDS: Metaxalone 800 MG Tablet PO (20:54)
[2018-11-18] MEDS: hydrALAZINE 20 MG/ML Vial 10 MG IV (20:55)
--- NOTE | 2018-11-18 21:12 | NURSING ---
pt refusing HS medications due to nausea at this time. Will continue to monitor.
[2018-11-18] MEDS: HYDROmorphone 2 MG TABLET PO (22:14)
[2018-11-19] MEDS: HYDROmorphone 2 MG TABLET PO (01:22)
[2018-11-19] MEDS: 0.9% Normal Saline 1,000 ML 100 ML IV ×2 (01:27→10:00)
[2018-11-19 02:00] VITALS: BP 179/100; PULSE 110; RESP 16; TEMP 36.7; O2SAT 98
[2018-11-19] MEDS: proCHLORPERazine 10 MG/2 ML Vial 5 MG IV ×2 (02:07→13:13)
[2018-11-19] MEDS: HYDROmorphone 1 MG/ML Syringe IV ×6 (02:07→19:47)
[2018-11-19 06:53] VITALS: BP 165/104; PULSE 111; RESP 18; TEMP 36.6; O2SAT 98
[2018-11-19 07:46] LABS: Absolute Lymphocyte Count 1.33 X10^3/ul (0.83-4.51); Absolute Neutrophil Count 11.6 X10^3/uL (2.0-7.7); Basophil# 0.03 X10^3/uL; Basophil% 0.2 % (0-1); Hemoglobin 13.5 g/dl (13.0-16.5); Lymphocyte # 1.33 X10^3/ul (4.0); Lymphocyte % 9.5 % (19-41); Mean Corp Hgb Conc 32.9 g/gl (32-36); Mean Corpuscular Volume 100.2 fL (80-94); Mean Platelet Vol. 10.6 fl (6.2-12.0); Monocyte# 0.93 X10^3/uL; Monocyte% 6.7 % (0-10); Neutrophil # 11.61 X10^3/uL (2.7-7.7); Neutrophil % 83.4 % (47-70); Platelet Count 273 K/mm3 (150-450); RBC Distribution Width CV 15.5 % (11.6-14.6); RBC Distribution Width SD 56.7 fl (35.1-43.9); Red Blood Count 4.09 M/mm3 (4.6-6.2); White Blood Count 13.9 K/mm3 (4.4-11.0)
[2018-11-19 07:54] LABS: POSITIVE COUNT NO; POSITIVE DIFFERENTIAL NO; POSITIVE MORPHOLOGY NO
[2018-11-19 08:16] LABS: Anion Gap 10 (5-15); BUN 13 mg/dL (7-18); BUN/Creat Ratio 14.2 RATIO (10-20); Calcium,Total 8.5 mg/dL (8.5-10.1); Chloride 96 mmol/L (98-107); Creatinine, Serum 0.91 mg/dL (0.70-1.30); EST Glomerular Filtration Rate 93 mL/min (>60); Est Glom Filt Rate - Afr Amer 112 mL/min (>60); Estimated Creatinine Clearance 85.03 ml/min; Glucose 121 mg/dL (74-106); Potassium 3.9 mmol/L (3.5-5.1); Sodium Level 130 mmol/L (136-145)
--- NOTE | 2018-11-19 09:54 | PCM.PN.HOSP ---
Patient Problems: Active and Suspected Problems (Last Updated 08/11/18 @ 23:05 by Ezequiel Zuniga MD) Intractable nausea and vomiting (Acute) Subjective: Patient seen and examined. He was admitted with a complaint of intractable nausea and vomiting after he had chemotherapy. Patient has metastatic neuroendocrine cancer and this is his third chemotherapy drug that he is on. He got chemotherapy yesterday and started having intractable nausea and vomiting as well as severe pain in his back radiating around the shoulders down to the buttocks. He was admitted to a monitored bed and is been managed for intractable nausea and vomiting likely due to chemotherapy. Patient seen and examined. He has not vomited since last night and is well controlled. He denies any fever or chills, any chest pain or palpitations or abdominal pain. Labs and vitals reviewed. Patient is ready to advance his diet. Vitals/I&O's: Vital Signs Temp Pulse Resp BP Pulse Ox 97.8 F 111 H 18 165/104 H 98 11/19/18 06:53 11/19/18 06:53 11/19/18 06:53 11/19/18 06:53 11/19/18 06:53 Oxygen Delivery Method Room Air Weight: 138 lb Body Mass Index (BMI) 21.6 Intake and Output for Last 24 Hours 11/17/18 11/18/18 11/19/18 23:59 23:59 23:59 Intake Total 143 / 143 2200 / 2200 Output Total 350 / 350 Balance 143 / 143 1850 / 1850 General: Alert, Oriented x3, Cooperative, No apparent distress HEENT: Atraumatic, PERRLA, EOMI, Normocephalic Oral: Moist Mucosa Neck: Supple, No JVD, Negative Carotid Bruits Lungs: Clear to auscultation, Normal air movement, No rhonchi, No wheeze, No rales Cardiovascular: Regular rate, Regular Rhythm, Normal S1, Normal S2, No murmurs Abdomen: Bowel Sounds Present Extremities: No clubbing, No cyanosis, No edema, Capillary Refill Less than 3 Seconds Skin: No rashes, No breakdown Musculoskeletal: No Tenderness to Palpation of Joints or Extremities Lymphatic: No Cervical, Supraclavicular, or Inguinal Adenopathy Neurological: Cranial nerves II-XII grossly intact, Neuro grossly intact, Motor Exam 5/5 strength throughout Psych/Mental Status: Normal Affect, Appropriate, Alert and oriented to time, place, person, mood and affect Laboratory Results 11/18/18 12:04: WBC 15.0 H, RBC 4.28 L, Hgb 14.4, Hct 42.7, MCV 99.8 H, MCH 33.6 H, MCHC 33.7, RDW 15.5 H, RDW Differential 56.4 H, Plt Count 346, MPV 10.1, Immature Gran % (Auto) 0.100, Neut % (Auto) 75.6 H, Lymph % (Auto) 9.5 L, [place] % (Auto) 14.5 H, Eos % (Auto) 0.1, Baso % (Auto) 0.2, Absolute Neuts (auto) 11.3 H, Absolute Lymphs (auto) 1.42, Total Counted Not Reportable, Differential Comment COMMENT 11/18/18 12:04: Sodium 136, Potassium 3.9, Chloride 101, Carbon Dioxide 25.0, Anion Gap 10, BUN 16, Creatinine 1.08, Estim Creat Clear Calc 72.16, Est GFR (MDRD) Af Amer 93, Est GFR (MDRD) Non-Af 77, BUN/Creatinine Ratio 14.8, Glucose 127 H, Calcium 9.1, Total Bilirubin 0.60, AST 67 H, ALT 103 H, Alkaline Phosphatase 270 H, Total Protein 8.1, Albumin 4.0, Globulin 4.1, Albumin/Globulin Ratio 1.0 11/19/18 06:53: Sodium 130 L, Potassium 3.9, Chloride 96 L, Carbon Dioxide 24.0, Anion Gap 10, BUN 13, Creatinine 0.91, Estim Creat Clear Calc 85.03, Est GFR (MDRD) Af Amer 112, Est GFR (MDRD) Non-Af 93, BUN/Creatinine Ratio 14.2, Glucose 121 H, Calcium 8.5 11/19/18 06:53: WBC 13.9 H, RBC 4.09 L, Hgb 13.5, Hct 41.0, MCV 100.2 H, MCH 33.0 H, MCHC 32.9, RDW 15.5 H, RDW Differential 56.7 H, Plt Count 273, MPV 10.6, Immature Gran % (Auto) 0.200, Neut % (Auto) 83.4 H, Lymph % (Auto) 9.5 L, [place] % (Auto) 6.7, Eos % (Auto) 0.0, Baso % (Auto) 0.2, Absolute Neuts (auto) 11.6 H, Absolute Lymphs (auto) 1.33, Total Counted Not Reportable Current Medications Amlodipine Besylate (Norvasc) 10 mg PO DAILY [facility] Dicyclomine HCl (Bentyl) 10 mg PO 4X/DAY PRN PRN Reason: abdominal cramping Diphenhydramine HCl (Benadryl) 25 mg PO QHS PRN PRN PRN Reason: ALLERGIES Enoxaparin Sodium (Lovenox) 40 mg SC DAILY@1000 [facility] Fluticasone Propionate (Flonase Nasal [place]) 1 spray NASAL DAILY PRN PRN Reason: ALLERGIES Hydralazine HCl (Apresoline Iv) 10 mg IV Q6H PRN PRN PRN Reason: BLOOD PRESSURE Last Admin: 11/18/18 20:55 Dose: 10 mg Hydromorphone HCl (Dilaudid Tablet) 2 - 4 mg PO Q3H PRN PRN PRN Reason: PAIN Last Admin: 11/19/18 01:22 Dose: 4 mg Hydromorphone HCl (Dilaudid Inj) 0.5 - 1 mg IV Q3H PRN PRN PRN Reason: SEVERE PAIN (6-10/10) Hydromorphone HCl (Dilaudid Inj) 0.5 - 1 mg IV Q3H PRN PRN PRN Reason: SEVERE PAIN (6-10/10) Sodium Chloride () 1,000 mls @ 100 mls/hr IV .Q10H [facility] Last Admin: 11/19/18 01:27 Dose: 100 mls/hr Lactulose (Chronulac, Cephulac) 20 gm PO BID [facility] Last Admin: 11/18/18 23:26 Dose: Not Given Magnesium Hydroxide (Milk Of Magnesia) 30 ml PO DAILY PRN PRN PRN Reason: Constipation Melatonin (Melatonin) 3 mg PO QHS PRN PRN Reason: INSOMNIA Metaxalone (Skelaxin) 800 mg PO TID PRN PRN PRN Reason: muscle relaxer Last Admin: 11/18/18 20:54 Dose: 800 mg Metoclopramide HCl (Reglan) 10 mg PO Q6H PRN PRN PRN Reason: NAUSEA Naproxen (Naprosyn) 500 mg PO BID PRN PRN Reason: PAIN Ondansetron HCl (Zofran) 4 mg IV Q8H PRN PRN PRN Reason: NAUSEA Last Admin: 11/18/18 21:02 Dose: 4 mg Oxycodone HCl (Oxyir) 5 mg PO Q6H PRN PRN PRN Reason: PAIN Last Admin: 11/18/18 20:38 Dose: 5 mg Pantoprazole Sodium (Protonix) 20 mg PO DAILY [facility] Polyethylene Glycol (Miralax) 17 gm PO DAILY [facility] Prochlorperazine Edisylate (Compazine Iv) 5 mg IV Q6H PRN PRN PRN Reason: NAUSEA/VOMITING Last Admin: 11/19/18 02:07 Dose: 5 mg Senna/Docusate Sodium (Senokot-S, Soni-Colace) 1 tablet PO BID [facility] Last Admin: 11/18/18 23:26 Dose: Not Given Sodium Chloride () 5 - 15 ml IV UD PRN PRN Reason: SALINE FLUSH Last Admin: 11/18/18 19:07 Dose: 10 ml Medical Necessity - Tobacco Use Smoking Status: Never smoker Tobacco Use: Non-smoker Assessment/Plan All Active Problems (Last Updated 08/11/18 @ 23:05 by Ezequiel Zuniga MD) Acute encephalopathy (Acute) Hyponatremia (Acute) Intractable nausea and vomiting (Acute) 1. Intractable nausea and vomiting likely chemotherapy induced resolving. On IVF and zofran hasnt vomited since last night will continue IVf and monitor. Advance diet as tolerated 2. Back pain resolving. has a history of acute metabolic encephalopathy due to methadone back in August. back pain is thougth to be due to his hepatic metastases feels better today will adjust pain meds. per [facility] records checked on admission, he received 60 tablets of hydromorphone 2 mg on 02 November and 28 tablets of 5 mg oxycodone on 25 October. will monitor 3. Hyponatremia: Na is 130 today.; Likely due to severe vomiting. WIll monitor after hydration with IVF. 4. Metastatic neuroendocrine tumor to follow up with Dr Booker on outpatient basis 5. leucocytosis: likely due to decadrone which he is on. Will monitor;. Is 13.9 today 6. Hypertension: On amlodipine. Hydralazine as needed. DVT prophylaxis: lovenox Code status: full code. Code Visit OBSV E&M: 50060 Subsequent observation care L3
--- NOTE | 2018-11-19 09:59 | PN_ITS ---
Patient Problems: Active and Suspected Problems (Last Updated 08/11/18 @ 23:05 by Ezequiel Zuniga MD) Intractable nausea and vomiting (Acute) Subjective: Patient seen and examined. He was admitted with a complaint of intractable nausea and vomiting after he had chemotherapy. Patient has metastatic neuroendocrine cancer and this is his third chemotherapy drug that he is on. He got chemotherapy yesterday and started having intractable nausea and vomiting as well as severe pain in his back radiating around the shoulders down to the buttocks. He was admitted to a monitored bed and is been managed for intractable nausea and vomiting likely due to chemotherapy. Patient seen and examined. He has not vomited since last night and is well controlled. He denies any fever or chills, any chest pain or palpitations or abdominal pain. Labs and vitals reviewed. Patient is ready to advance his diet. Vitals/I&O's: Vital Signs Temp Pulse Resp BP Pulse Ox 97.8 F 111 H 18 165/104 H 98 11/19/18 06:53 11/19/18 06:53 11/19/18 06:53 11/19/18 06:53 11/19/18 06:53 Oxygen Delivery Method Room Air Weight: 138 lb Body Mass Index (BMI) 21.6 Intake and Output for Last 24 Hours 11/17/18 11/18/18 11/19/18 23:59 23:59 23:59 Intake Total 143 / 143 2200 / 2200 Output Total 350 / 350 Balance 143 / 143 1850 / 1850 General: Alert, Oriented x3, Cooperative, No apparent distress HEENT: Atraumatic, PERRLA, EOMI, Normocephalic Oral: Moist Mucosa Neck: Supple, No JVD, Negative Carotid Bruits Lungs: Clear to auscultation, Normal air movement, No rhonchi, No wheeze, No r ales Cardiovascular: Regular rate, Regular Rhythm, Normal S1, Normal S2, No murmurs Abdomen: Bowel Sounds Present Extremities: No clubbing, No cyanosis, No edema, Capillary Refill Less than 3 Seconds Skin: No rashes, No breakdown Musculoskeletal: No Tenderness to Palpation of Joints or Extremities Lymphatic: No Cervical, Supraclavicular, or Inguinal Adenopathy Neurological: Cranial nerves II-XII grossly intact, Neuro grossly intact, Motor Exam 5/5 strength throughout Psych/Mental Status: Normal Affect, Appropriate, Alert and oriented to time, place, person, mood and affect Laboratory Results 11/18/18 12:04: WBC 15.0 H, RBC 4.28 L, Hgb 14.4, Hct 42.7, MCV 99.8 H, MCH 33.6 H, MCHC 33.7, RDW 15.5 H, RDW Differential 56.4 H, Plt Count 346, MPV 10.1, Immature Gran % (Auto) 0.100, Neut % (Auto) 75.6 H, Lymph % (Auto) 9.5 L, [place] % (Auto) 14.5 H, Eos % (Auto) 0.1, Baso % (Auto) 0.2, Absolute Neuts (auto) 11.3 H , Absolute Lymphs (auto) 1.42, Total Counted Not Reportable, Differential Comment COMMENT 11/18/18 12:04: Sodium 136, Potassium 3.9, Chloride 101, Carbon Dioxide 25.0, Anion Gap 10, BUN 16, Creatinine 1.08, Estim Creat Clear Calc 72.16, Est GFR (MDRD) Af Amer 93, Est GFR (MDRD) Non-Af 77, BUN/Creatinine Ratio 14.8, Glucose 127 H, Calcium 9.1, Total Bilirubin 0.60, AST 67 H, ALT 103 H, Alkaline Phosphatase 270 H, Total Protein 8.1, Albumin 4.0, Globulin 4.1, Albumin/Globulin Ratio 1.0 11/19/18 06:53: Sodium 130 L, Potassium 3.9, Chloride 96 L, Carbon Dioxide 24.0, Anion Gap 10, BUN 13, Creatinine 0.91, Estim Creat Clear Calc 85.03, Est GFR (MDRD) Af Amer 112, Est GFR (MDRD) Non-Af 93, BUN/Creatinine Ratio 14.2, Glucose 121 H, Calcium 8.5 11/19/18 06:53: WBC 13.9 H, RBC 4.09 L, Hgb 13.5, Hct 41.0, MCV 100.2 H, MCH 33.0 H, MCHC 32.9, RDW 15.5 H, RDW Differential 56.7 H, Plt Count 273, MPV 10.6, Immature Gran % (Auto) 0.200, Neut % (Auto) 83.4 H, Lymph % (Auto) 9.5 L, [place] % (Auto) 6.7, Eos % (Auto) 0.0, Baso % (Auto) 0.2, Absolute Neuts (auto) 11.6 H, Absolute Lymphs (auto) 1.33, Total Counted Not Reportable Current Medications Amlodipine Besylate (Norvasc) 10 mg PO DAILY [facility]S [facility]CLUDE 234 BEDS AT [facility] Dicyclomine HCl (Bentyl) 10 mg PO 4X/DAY PRN PRN Reason: abdominal cramping Diphenhydramine HCl (Benadryl) 25 mg PO QHS PRN PRN PRN Reason: ALLERGIES Enoxaparin Sodium (Lovenox) 40 mg SC DAILY@1000 [facility] Fluticasone Propionate (Flonase Nasal [place]) 1 spray NASAL DAILY PRN PRN Reason: ALLERGIES Hydralazine HCl (Apresoline Iv) 10 mg IV Q6H PRN PRN PRN Reason: BLOOD PRESSURE Last Admin: 11/18/18 20:55 Dose: 10 mg Hydromorphone HCl (Dilaudid Tablet) 2 - 4 mg PO Q3H PRN PRN PRN Reason: PAIN Last Admin: 11/19/18 01:22 Dose: 4 mg Hydromorphone HCl (Dilaudid Inj) 0.5 - 1 mg IV Q3H PRN PRN PRN Reason: SEVERE PAIN (6-10/10) Hydromorphone HCl (Dilaudid Inj) 0.5 - 1 mg IV Q3H PRN PRN PRN Reason: SEVERE PAIN (6-10/10) Sodium Chloride () 1,000 mls @ 100 mls/hr IV .Q10H COUNTS INCLUDE 234 BEDS AT THE [facility] Last Admin: 11/19/18 01:27 Dose: 100 mls/hr Lactulose (Chronulac, Cephulac) 20 gm PO BID COUNTS INCLUDE 234 BEDS AT THE [facility] Last Admin: 11/18/18 23:26 Dose: Not Given Magnesium Hydroxide (Milk Of Magnesia) 30 ml PO DAILY PRN PRN PRN Reason: Constipation Melatonin (Melatonin) 3 mg PO QHS PRN PRN Reason: INSOMNIA Metaxalone (Skelaxin) 800 mg PO TID PRN PRN PRN Reason: muscle relaxer Last Admin: 11/18/18 20:54 Dose: 800 mg Metoclopramide HCl (Reglan) 10 mg PO Q6H PRN PRN PRN Reason: NAUSEA Naproxen (Naprosyn) 500 mg PO BID PRN PRN Reason: PAIN Ondansetron HCl (Zofran) 4 mg IV Q8H PRN PRN PRN Reason: NAUSEA Last Admin: 11/18/18 21:02 Dose: 4 mg Oxycodone HCl (Oxyir) 5 mg PO Q6H PRN PRN PRN Reason: PAIN Last Admin: 11/18/18 20:38 Dose: 5 mg Pantoprazole Sodium (Protonix) 20 mg PO DAILY [facility]CLUDE 234 BEDS AT [facility] Polyethylene Glycol (Miralax) 17 gm PO DAILY [facility]CLUDE 234 BEDS AT THE [facility] Prochlorperazine Edisylate (Compazine Iv) 5 mg IV Q6H PRN PRN PRN Reason: NAUSEA/VOMITING Last Admin: 11/19/18 02:07 Dose: 5 mg Senna/Docusate Sodium (Senokot-S, Soni-Colace) 1 tablet PO BID [facility] Last Admin: 11/18/18 23:26 Dose: Not Given Sodium Chloride () 5 - 15 ml IV UD PRN PRN Reason: SALINE FLUSH Last Admin: 11/18/18 19:07 Dose: 10 ml Medical Necessity - Tobacco Use Smoking Status: Never smoker Tobacco Use: Non-smoker Assessment/Plan All Active Problems (Last Updated 08/11/18 @ 23:05 by Ezequiel Zuniga MD) Acute encephalopathy (Acute) Hyponatremia (Acute) Intractable nausea and vomiting (Acute) 1. Intractable nausea and vomiting likely chemotherapy induced * resolving. On IVF and zofran * hasnt vomited since last night * will continue IVf and monitor. Advance diet as tolerated * 2. Back pain * resolving. has a history of acute metabolic encephalopathy due to methadone back in August. * back pain is thougth to be due to his hepatic metastases * feels better today * will adjust pain meds. * per [facility] records checked on admission, he received 60 tablets of hydromorphone 2 mg on 02 November and 28 tablets of 5 mg oxycodone on 25 October. * will monitor * 3. Hyponatremia: Na is 130 today.; Likely due to severe vomiting. WIll monitor after hydration with IVF. 4. Metastatic neuroendocrine tumor * to follow up with Dr Booker on outpatient basis * 5. leucocytosis: likely due to decadrone which he is on. Will monitor;. Is 13.9 today 6. Hypertension: On amlodipine. Hydralazine as needed. DVT prophylaxis: lovenox Code status: full code. Code Visit OBSV E&M: 80813 Subsequent observation care L3
[2018-11-19] MEDS: Ondansetron 4 MG/2 ML Vial IV (10:00)
[2018-11-19] MEDS: Enoxaparin 40 MG/0.4 ML Syringe SC (10:02)
[2018-11-19] MEDS: 0.9% Normal Saline 1,000 ML 150 ML IV ×2 (12:00→17:30)
[2018-11-19 12:55] VITALS: BP 151/88; PULSE 97; RESP 18; TEMP 37.2; O2SAT 99
[2018-11-19] MEDS: amLODIPine 10 MG Tablet PO (13:12)
[2018-11-19] MEDS: Pantoprazole Sodium 20 MG Tablet PO (13:13)
[2018-11-19] MEDS: Metoclopramide 10 MG Tablet PO (16:35)
[2018-11-19] MEDS: 0.9% NaCl Peripheral Flush Adult/Peds IV ×3 (16:35→23:09)
[2018-11-19] MEDS: Dicyclomine 10 MG Capsule PO (16:35)
[2018-11-19 20:00] VITALS: BP 150/90; PULSE 100; RESP 16; TEMP 36.7; O2SAT 97
--- NOTE | 2018-11-19 20:14 | PCM.PN.BLA ---
Progress Note Nursing team reports that patient is requesting an enema. Last bowel movement was 3 days ago. Patient is refusing any oral stool softners/stimulant. Patient states that at home he uses enema. Will order fleet enema x1.
[2018-11-19] MEDS: Fleet Enema 1 ML RECTAL (22:03)
[2018-11-19] MEDS: Lactulose 20 GM/30 ML UDC PO (22:29)
[2018-11-19 23:07] VITALS: TEMP 36.5
[2018-11-19] MEDS: HYDROmorphone 0.5 MG/0.5 ML SYRINGE IV (23:09)
[2018-11-20] MEDS: HYDROmorphone 1 MG/ML Syringe IV ×2 (02:12→05:28)
[2018-11-20] MEDS: 0.9% NaCl Peripheral Flush Adult/Peds IV ×3 (02:13→05:28)
[2018-11-20 02:19] VITALS: BP 157/88; PULSE 98; RESP 16; TEMP 36.8; O2SAT 97
[2018-11-20] MEDS: Ondansetron 4 MG/2 ML Vial IV (04:56)
[2018-11-20 06:57] LABS: Absolute Lymphocyte Count 0.86 X10^3/ul (0.83-4.51); Absolute Neutrophil Count 6.9 X10^3/uL (2.0-7.7); Basophil# 0.01 X10^3/uL; Basophil% 0.1 % (0-1); Eosinophil# 0.01 X10^3/uL; Eosinophils% 0.1 % (0-5); Hematocrit 36.9 % (40-54); Hemoglobin 12.6 g/dl (13.0-16.5); Lymphocyte # 0.86 X10^3/ul (4.0); Lymphocyte % 10.7 % (19-41); Mean Corp Hgb Conc 34.1 g/gl (32-36); Mean Corpuscular Hgb 33.8 pg (27.0-32.0); Mean Corpuscular Volume 98.9 fL (80-94); Mean Platelet Vol. 11.5 fl (6.2-12.0); Monocyte# 0.23 X10^3/uL; Monocyte% 2.9 % (0-10); Neutrophil # 6.94 X10^3/uL (2.7-7.7); Neutrophil % 86.2 % (47-70); Platelet Count 219 K/mm3 (150-450); RBC Distribution Width CV 14.7 % (11.6-14.6); RBC Distribution Width SD 51.5 fl (35.1-43.9); Red Blood Count 3.73 M/mm3 (4.6-6.2); White Blood Count 8.1 K/mm3 (4.4-11.0)
[2018-11-20 07:03] LABS: POSITIVE COUNT NO; POSITIVE DIFFERENTIAL NO; POSITIVE MORPHOLOGY NO
[2018-11-20 07:23] LABS: Anion Gap 9 (5-15); BUN 12 mg/dL (7-18); BUN/Creat Ratio 15.6 RATIO (10-20); Calcium,Total 8.6 mg/dL (8.5-10.1); Chloride 100 mmol/L (98-107); Creatinine, Serum 0.77 mg/dL (0.70-1.30); EST Glomerular Filtration Rate 113 mL/min (>60); Est Glom Filt Rate - Afr Amer 137 mL/min (>60); Estimated Creatinine Clearance 100.49 ml/min; Glucose 126 mg/dL (74-106); Potassium 3.8 mmol/L (3.5-5.1); Sodium Level 134 mmol/L (136-145)
[2018-11-20 08:15] VITALS: BP 156/99; PULSE 93; RESP 18; TEMP 36.9; O2SAT 100
[2018-11-20] MEDS: HYDROmorphone 2 MG TABLET PO (08:19)
[2018-11-20] MEDS: Lactulose 20 GM/30 ML UDC PO (08:20)
[2018-11-20] MEDS: Polyethylene Glycol 3350 17 GM PACKET PO (08:21)
[2018-11-20] MEDS: amLODIPine 10 MG Tablet PO (08:21)
[2018-11-20] MEDS: Pantoprazole Sodium 20 MG Tablet PO (08:21)
[2018-11-20] MEDS: Metaxalone 800 MG Tablet PO (08:22)
[2018-11-20] MEDS: Senna/Docusate Sodium 1 Tablet PO (08:22)
--- NOTE | 2018-11-20 10:41 | PCM.DC ---
- Discharge Diagnoses Current Active Problems: Current Active and Chronic Problems (Last Updated 08/11/18 @ 23:05 by Ezequiel Zuniga MD) Intractable nausea and vomiting (Acute) You will use the following diet at home:: Cardiac Your food should be the consistency of: Regular Your liquids should be the consistency of: Regular/Thin Discharge Activity: Return to Normal Activity Weight Bearing Status: Weight bearing as tolerated Call your doctor if you observe: Uncontrolled pain, - - nausea and vomiting Instructions: Oncology: Controlling Nausea and Vomiting Allergies/Adverse Reactions: Allergies DUST Allergy (Uncoded 11/18/18 11:41) Other Medications to take at Discharge Dicyclomine HCl [Bentyl] 10 mg PO 4X/DAY PRN 08/11/18 DiphenhydrAMINE [Benadryl] 25 mg PO QHS PRN PRN 08/11/18 Fluticasone 0.05% [Flonase Nasal [place]] 1 spray NASAL PRN PRN 08/11/18 Lactulose 30 ml PO BID 08/11/18 Metaxalone [Skelaxin] 800 mg PO TID PRN 08/11/18 Metoclopramide HCl 10 mg PO Q6H PRN 08/11/18 Naproxen Sodium [Aleve] 440 mg PO BID PRN PRN 08/11/18 Pantoprazole Sodium [Protonix] 20 mg PO DAILY 08/11/18 Sennosides/Docusate Sodium [Senna Plus Tablet] 1 tab PO BID PRN 08/11/18 Oxycodone [Oxyir] 5 mg PO Q6H PRN PRN 11/02/18 Albuterol Inhaler [Ventolin Hfa] 2 puff INHALATION Q4H PRN PRN 11/18/18 Amlodipine [Norvasc] 10 mg PO DAILY 11/18/18 HYDROmorphone tablet [Dilaudid] 2 - 4 mg PO Q3H PRN PRN 11/18/18 Melatonin 3 mg PO QHS PRN 11/18/18 Ondansetron [Zofran] 8 mg PO Q8H PRN PRN 11/18/18 Polyethylene Glycol 3350 [Miralax] 17 gm PO DAILY 11/18/18 Primary Care Physician: Samy Lewis MD [Primary Care Provider] - Please follow up with your Primary Care Physician in: one week Test Results: Test results from this visit will be discussed in further detail at your follow-up appointment, if applicable. Please Follow Up With: Anastacio Booker DO When: 1-2 weeks Proposed Discharge Date: 11/20/18
--- NOTE | 2018-11-20 10:43 | DS.PCM_ITS ---
Discharge Date and Diagnosis Date of Admission: 11/18/18 Date of Discharge: 11/20/18 - Primary Discharge Diagnosis Active and Suspected Problems (Last Updated 08/11/18 @ 23:05 by Ezequiel Zuniga MD) Intractable nausea and vomiting (Acute) - Secondary Discharge Diagnosis Chronic Problems (Last Updated 08/11/18 @ 23:05 by Ezequiel Zuniga MD) Neuroendocrine cancer (Chronic) Hospital Course and Treatment Operations: None Procedures: None Summary of Care Provided: The patient is a 53 year old M admitted with a complaint of intractable nausea and vomiting after he had chemotherapy. Patient has metastatic neuroendocrine cancer and this is his third chemotherapy drug that he is on. He got chemotherapy on the day before admission and started having intractable nausea and vomiting as well as severe pain in his back radiating around the shoulders down to the buttocks. He was admitted to a monitored bed and managed for intractable nausea and vomiting likely due to chemotherapy. He was hydrated with IV fluids and given IV Zofran for nausea and vomiting. Nausea and vomiting resolved. His pain was refractory to control and required increasing amounts of Dilaudid. However pain became more controlled and nausea vomiting resolved on 11/20/2018. He tolerated oral diet and was discharged home on 11/20/2018. He is to follow-up with his primary care doctor and with oncology. Patient seen and examined prior to discharge. He had no complaints and felt well. Pain was well controlled. He denied any fever chills, any cough or chest pain, shortness of breath, abdominal pain, diarrhea vomiting. 12 point review of systems otherwise negative. Labs and vitals reviewed. He is worried about constipation but states he uses enemas at home and they work. o/e: Vital Signs Height 5 ft 7 in Weight: 138 lb 0.15 oz Weight in Pounds 138.0 lbs Pulse Ox 100 Temperature 98.5 F Pulse Rate 93 Respiratory Rate 18 Blood Pressure 156/99 Blood Pressure Position Sitting ] - Physical Exam Vital Signs Temp Pulse Resp BP Pulse Ox 98.5 F 93 18 156/99 H 100 11/20/18 08:15 11/20/18 08:15 11/20/18 08:15 11/20/18 08:15 11/20/18 08:15 Oxygen Delivery Method Room Air Weight: 138 lb 0.15 oz Body Mass Index (BMI) 21.6 Intake and Output for Last 24 Hours 11/18/18 11/19/18 11/20/18 23:59 23:59 23:59 Intake Total 143 / 143 4011 / 4011 1935 / 1935 Output Total 350 / 350 1999 Balance 143 / 143 3661 / 3661 -65 / -65 Laboratory Tests Past 24 Hrs 11/20/18 11/20/18 05:46 05:46 WBC 8.1 RBC 3.73 L Hgb 12.6 L Hct 36.9 L MCV 98.9 H MCH 33.8 H MCHC 34.1 RDW 14.7 H RDW Differential 51.5 H Plt Count 219 MPV 11.5 Immature Gran % (Auto) 0.000 Neut % (Auto) 86.2 H Lymph % (Auto) 10.7 L [place] % (Auto) 2.9 Eos % (Auto) 0.1 Baso % (Auto) 0.1 Absolute Neuts (auto) 6.9 Absolute Lymphs (auto) 0.86 Total Counted Not Reportable Sodium 134 L Potassium 3.8 Chloride 100 Carbon Dioxide 25.0 Anion Gap 9 BUN 12 Creatinine 0.77 Estim Creat Clear Calc 100.49 Est GFR (MDRD) Af Amer 137 Est GFR (MDRD) Non-Af 113 BUN/Creatinine Ratio 15.6 Glucose 126 H Calcium 8.6 Discharge Diet: Low fat/ Low Cholesterol Discharge Activity: Return to Normal Activity Weight Bearing Status: Weight bearing as tolerated Call your doctor if you observe: Uncontrolled pain, - - nausea and vomiting Home Medications: Medications to take at Discharge Dicyclomine HCl [Bentyl] 10 mg PO 4X/DAY PRN 08/11/18 DiphenhydrAMINE [Benadryl] 25 mg PO QHS PRN PRN 08/11/18 Fluticasone 0.05% [Flonase Nasal [employer]] 1 spray NASAL PRN PRN 08/11/18 Lactulose 30 ml PO BID 08/11/18 Metaxalone [Skelaxin] 800 mg PO TID PRN 08/11/18 Metoclopramide HCl 10 mg PO Q6H PRN 08/11/18 Naproxen Sodium [Aleve] 440 mg PO BID PRN PRN 08/11/18 Pantoprazole Sodium [Protonix] 20 mg PO DAILY 08/11/18 Sennosides/Docusate Sodium [Senna Plus Tablet] 1 tab PO BID PRN 08/11/18 Oxycodone [Oxyir] 5 mg PO Q6H PRN PRN 11/02/18 Albuterol Inhaler [Ventolin Hfa] 2 puff INHALATION Q4H PRN PRN 11/18/18 Amlodipine [Norvasc] 10 mg PO DAILY 11/18/18 HYDROmorphone tablet [Dilaudid] 2 - 4 mg PO Q3H PRN PRN 11/18/18 Melatonin 3 mg PO QHS PRN 11/18/18 Ondansetron [Zofran] 8 mg PO Q8H PRN PRN 11/18/18 Polyethylene Glycol 3350 [Miralax] 17 gm PO DAILY 11/18/18 Primary Care Physician: Samy Lewis MD [Primary Care Provider] - Please follow up with your Primary Care Physician in: one week Please Follow Up With: Anastacio Booker DO When: 1-2 weeks Patient Instructions: Oncology: Controlling Nausea and Vomiting Disposition: Home Minutes spent on discharge:: 35 Patient Condition:: Stable Medical Necessity - Tobacco Use Smoking Status: Never smoker Tobacco Use: Non-smoker Meaningful Use Info Meaningful Use Diagnoses (Choose all that apply): None applicable Code Visit Inpatient E&M: 03527 Disch Hosp
[2018-11-21 14:44] LABS: Pathologist Review Reviewed
== END 2018-11-20 11:30 | disposition home or self-care (01) ==
LOC: ED 12:17 → MS3 16:20
PROVIDERS: Emergency Provider Emergency Medicine; Family Provider Family Medicine; PCP Family Medicine; Visit Provider Student in an Organized Health Care Education/Training Program
DX: R11.2 Nausea with vomiting, unspecified (principal); C75.9 Malignant neoplasm of endocrine gland, unspecified; Z79.899 Other long term (current) drug therapy; E87.1 Hypo-osmolality and hyponatremia; C78.7 Secondary malignant neoplasm of liver and intrahepatic bile duct; I10 Essential (primary) hypertension; D72.829 Elevated white blood cell count, unspecified
CPT/HCPCS: 36415; 80048; 80053; 85025; 96361; 96372; 96374; 96375; 96376; 97802; 99218; 99282; J7030; A4216; G0378; J2405

== ENCOUNTER 2019-01-19 15:59 | Observation (INO) | payer OTHER, SELFPAY ==
[2018-11-18 16:47] VITALS: BMI 21.6
[2019-01-19 16:00] VITALS: BP 149/94; PULSE 111; RESP 16; TEMP 36.2; O2SAT 97; BMI 19.4
[2019-01-19 16:15] VITALS: RESP 18; O2SAT 98
--- NOTE | 2019-01-19 16:27 | CT_ITS ---
STUDY: CT ABDOMEN AND PELVIS WITHOUT CONTRAST REASON FOR EXAM: Male, 53 years old. Constipation. RADIATION DOSAGE (If Supplied By Facility): CTDIvol = ( 6.16 ) mGy, DLP = ( 287.64 ) mGycm TECHNIQUE: Transaxial images were obtained from the dome of the diaphragm to the symphysis pubis without oral contrast, and without intravenous contrast. Sagittal and coronal images were reconstructed. Individualized dose optimization techniques were used for this CT. COMPARISON: None. FINDINGS: The visualized lung bases are unremarkable. The visualized portions of the heart are within normal limits. Markedly enlarged liver with too numerous to count metastatic target-like heterogeneous lesions throughout. Normal gallbladder and extrahepatic biliary system. Normal spleen. Normal pancreas. Normal bilateral adrenal glands. Normal right kidney. Normal left kidney. Normal visualized stomach. Proximal small bowel is within normal limits. There is fecalization of the distal small bowel. Prominent fecal retention in the right hemicolon, particularly the cecum. Additional extensive fecal retention throughout the ascending and transverse colon. There is a broad transition point in the mid descending colon. No discrete mass is noted however, cannot be excluded. The appendix is visualized and appears normal. Normal abdominal aorta. Normal inferior vena cava. Normal retroperitoneum. Normal urinary bladder. Normal visualized prostate gland. Normal abdominal wall. There are diffuse degenerative changes of the visualized lumbar spine. Numerous sclerotic foci throughout the vertebral bodies and pelvis compatible with metastatic disease CT/Abdomen/Pelvis without Cont IMPRESSION: 1. Diffuse hepatic metastasis 2. Metastatic disease of the osseous structures 3. Prominent fecal retention throughout the ascending, transverse and proximal descending colon with an abrupt transition point in the mid descending colon no discrete underlying lesion is noted however, not fully excluded Electronically Signed: Nikko Lara DO at 17:42 EDT Tel , Service support ,
[2019-01-19] MEDS: 0.9% Normal Saline 1,000 ML 1000 ML IV (16:54)
[2019-01-19 16:57] LABS: Absolute Lymphocyte Count 1.08 X10^3/ul (0.83-4.51); Absolute Neutrophil Count 5.8 X10^3/uL (2.0-7.7); Basophil# 0.03 X10^3/uL; Basophil% 0.4 % (0-1); Eosinophil# 0.01 X10^3/uL; Eosinophils% 0.1 % (0-5); Hematocrit 40.7 % (40-54); Hemoglobin 13.3 g/dl (13.0-16.5); Lymphocyte # 1.08 X10^3/ul (4.0); Lymphocyte % 13.3 % (19-41); Mean Corp Hgb Conc 32.7 g/gl (32-36); Mean Corpuscular Hgb 31.4 pg (27.0-32.0); Mean Corpuscular Volume 96.2 fL (80-94); Mean Platelet Vol. 10.1 fl (6.2-12.0); Monocyte# 1.18 X10^3/uL; Monocyte% 14.6 % (0-10); Neutrophil # 5.79 X10^3/uL (2.7-7.7); Neutrophil % 71.5 % (47-70); Platelet Count 263 K/mm3 (150-450); RBC Distribution Width CV 13.9 % (11.6-14.6); RBC Distribution Width SD 48.6 fl (35.1-43.9); Red Blood Count 4.23 M/mm3 (4.6-6.2); White Blood Count 8.1 K/mm3 (4.4-11.0)
--- NOTE | 2019-01-19 17:00 | ED.VISSUMM ---
- ER Visit Summary Date of Service: 01/19/19 Chief Complaint: Constipation History of Present Illness: The patient is a 53 M unfortunate individual with [place] endocrine cancer on chemotherapy has not had a bowel movement in a week. He is describing abdominal pain. He denies any fever or chills he denies any rectal pain. There are no urinary symptoms. There is no chest pain or shortness of breath. Physical Examination: Cachectic appearing individual. Slightly dry mucous membranes, sunken eyes. Supple neck there is regular rate and rhythm. Mostly clear lungs there is a soft abdomen with diffuse tenderness. Rectal exam does not show any stool or impaction. He has no CVA tenderness he has no peripheral edema. He has some pallor and he is neurologically intact. Emergency Department Course and Treatment: Patient has a CT that shows quite a bit of stool in his ascending transverse and descending colon. I discussed the patient with Dr. Beltran, there are some possibilities first being Gastrografin enema in the morning. There is also possibility of colonoscopy. Regardless I will admit the patient for further treatment. Disposition: Admit in guarded condition Impression: Metastatic cancer Constipation This note was generated with Go[employer] dictation software. It may contain incorrect words, spelling, and punctuation that were not noted in review of the chart prior to signing ED Disposition - Plan for ED Patient: Referrals: Samy Lewis MD [Primary Care Provider] -
[2019-01-19 17:08] LABS: POSITIVE COUNT NO; POSITIVE DIFFERENTIAL NO; POSITIVE MORPHOLOGY NO
[2019-01-19] MEDS: Ondansetron 4 MG/2 ML Vial IV (17:17)
[2019-01-19] MEDS: HYDROmorphone 1 MG/ML Syringe IV (17:17)
[2019-01-19 17:28] LABS: ALB/GLOB Ratio 0.9 RATIO (0.9-2.4); AST(SGOT) 41 U/L (15-37); Alanine Aminotransfer ALT/SGPT 39 U/L (16-61); Albumin, Serum 3.2 g/dL (3.2-5.0); Alkaline Phosphatase 247 U/L (45-117); Anion Gap 7 (5-15); BUN 14 mg/dL (7-18); BUN/Creat Ratio 11.3 RATIO (10-20); Calcium,Total 8.5 mg/dL (8.5-10.1); Chloride 101 mmol/L (98-107); Creatinine, Serum 1.24 mg/dL (0.70-1.30); EST Glomerular Filtration Rate 65 mL/min (>60); Est Glom Filt Rate - Afr Amer 79 mL/min (>60); Estimated Creatinine Clearance 56.07 ml/min; Globulin 3.5 g/dL (2.2-4.2); Glucose 132 mg/dL (74-106); Lipase 80 U/L (73-393); Protein, Total 6.7 g/dL (6.4-8.2); Sodium Level 134 mmol/L (136-145)
--- NOTE | 2019-01-19 19:15 | HP.PCM_ITS ---
Problem List (1) Obstipation Status: Acute (2) Hyponatremia Status: Acute (3) Neuroendocrine cancer Status: Chronic Comment: With wide metastasis (4) Intractable nausea and vomiting Status: Acute Qualifiers: History of Present Illness Date of Admission: 01/19/19 Chief Complaint: Nauseated, vomiting, severe obstipation for about 11/2 weeks The patient is a 53 year old M with history of neuroendocrine tumor with wide metastasis to liver and bone came to ED with intractable nausea, vomiting and severe obstipation. Patient had last chemo by Dr. Booker on Wednesday. Last time, patient moved his bowel adequately was 1/2 weeks ago. He has loss of appetite and also nausea and throws up even on eating small amount of food. Patient also has abdominal pain, diffuse in nature but predominantly in upper quadrants. Patient was last admitted on November 18, 2018 and discharged on 11/20/2018 for similar problem of intractable nausea and vomiting. Patient has CT abdomen shows prominent fecal retention throughout the ascending, transverse and proximal descending colon with an aberration point in the mid descending colon with no discrete underlying lesion noted. [] Past Medical History Past Medical History (Chronic Problems): Chronic Problems (Last Updated 08/11/18 @ 23:05 by Ezequiel Zuniga MD) Neuroendocrine cancer (Chronic) With wide metastasis Medical History: Medical History (Last Updated 08/11/18 @ 23:05 by Ezequiel Zuniga MD) Neuroendocrine cancer C7A.8 Allergies DUST Allergy (Uncoded 01/19/19 16:03) Other Home Medications: Ambulatory Orders Medication Instructions Recorded Dicyclomine HCl [Bentyl] 10 mg PO 4X/DAY PRN 08/11/18 DiphenhydrAMINE [Benadryl] 25 mg PO QHS PRN PRN 08/11/18 Fluticasone 0.05% [Flonase Nasal 1 spray NASAL PRN PRN 08/11/18 [facility]] Lactulose 30 ml PO BID 08/11/18 Metoclopramide HCl 10 mg PO Q6H PRN 08/11/18 Naproxen Sodium [Aleve] 440 mg PO BID PRN PRN 08/11/18 Pantoprazole Sodium [Protonix] 20 mg PO DAILY 08/11/18 Sennosides/Docusate Sodium [Senna 1 tab PO BID PRN 08/11/18 Plus Tablet] Oxycodone [Oxyir] 5 mg PO Q6H PRN PRN 11/02/18 Albuterol Inhaler [Ventolin Hfa] 2 puff INHALATION Q4H PRN PRN 11/18/18 Amlodipine [Norvasc] 10 mg PO DAILY 11/18/18 HYDROmorphone tablet [Dilaudid] 2 - 4 mg PO Q3H PRN PRN 11/18/18 Melatonin 3 mg PO QHS PRN 11/18/18 Ondansetron [Zofran] 8 mg PO Q8H PRN PRN 11/18/18 Polyethylene Glycol 3350 [Miralax] 17 gm PO DAILY 11/18/18 Magnesium Oxide [Mag-Ox 400] 800 mg PO DAILY 01/19/19 Methadone HCl 2.5 mg PO BID 01/19/19 Surgical History: - - fusion of wrist; silicon buckle left eye Smoking Status: Never smoker - *Family History Maternal History Items: Cancer - colon Paternal History Items: Heart Disease - Dad had heart attack in his 70s Review of Systems Constitutional: Reports: Anorexia, Malaise, Weakness, Weight Change, Fatigue HEENT: Denies: Head Aches, Sinus Congestion, Sinus Drainage Cardiovascular: Denies: Chest Pain, Palpitations Respiratory: Denies: Cough, Shortness of breath at rest, Sputum production Gastrointestinal: Reports: Abdominal Pain, Constipation, Nausea, Vomiting. Denies: Hematemesis, Hematochezia, Melena Genitourinary: Denies: Dysuria, Frequency, Hesitancy Musculoskeletal: Reports: Back Pain. Denies: Joint Pain, Joint Tenderness Skin: Denies: Rash, Wounds Neurological: Denies: Numbness, Tingling, Focal weakness Psychiatric: Denies: Anxiety, Depression, Homicidal Ideations, Suicidal Ideations Hematologic/ Lymphatic: Denies: Easy Bruising, Easy Bleeding VTE Information - Inpt Only VTE Present on Admission: No VTE Mechan Device Prophylaxis: None VTE Pharm Prophylaxis ordered?: Yes Patient Problems: Active and Suspected Problems (Last Updated 08/11/18 @ 23:05 by Ezequiel Zuniga MD) Obstipation (Acute) - Physical Exam General: Oriented x3, Cooperative, Lethargic, - - Drowsy and lethargic HEENT: Atraumatic, PERRLA, EOMI, Normocephalic Oral: Dry Mucosa Neck: Supple, No JVD, Negative Carotid Bruits Lungs: Clear to auscultation, Normal air movement, No rhonchi, No wheeze, No rales Cardiovascular: Regular rate, Regular Rhythm, Normal S1, Normal S2, No murmurs Abdomen: Bowel Sounds Present, Soft, Hypoactive Bowel Sounds, Distended, Tender - Diffuse tenderness present. Upper abdomen is distended Extremities: No edema, Capillary Refill Less than 3 Seconds Skin: No rashes, No breakdown Musculoskeletal: No Tenderness to Palpation of Joints or Extremities, Muscle Wasting - Severe muscle atrophy of extremities Neurological: Cranial nerves II-XII grossly intact, Deep Tendon Reflexes 2+/4 and Symmetrical, Neuro grossly intact Psych/Mental Status: Normal Affect, Appropriate Vital Signs Temp Pulse Resp BP Pulse Ox 97.1 F L 111 H 18 149/94 H 98 01/19/19 16:00 01/19/19 16:00 01/19/19 16:15 01/19/19 16:00 01/19/19 16:15 Oxygen Delivery Method Room Air Weight: 124 lb Body Mass Index (BMI) 19.4 Laboratory Tests Past 24 Hrs 01/19/19 01/19/19 16:47 16:47 WBC 8.1 RBC 4.23 L Hgb 13.3 Hct 40.7 MCV 96.2 H MCH 31.4 MCHC 32.7 RDW 13.9 RDW Differential 48.6 H Plt Count 263 MPV 10.1 Immature Gran % (Auto) 0.100 Neut % (Auto) 71.5 H Lymph % (Auto) 13.3 L Moffat % (Auto) 14.6 H Eos % (Auto) 0.1 Baso % (Auto) 0.4 Absolute Neuts (auto) 5.8 Absolute Lymphs (auto) 1.08 Total Counted Not Reportable Sodium 134 L Potassium 4.0 Chloride 101 Carbon Dioxide 26.0 Anion Gap 7 BUN 14 Creatinine 1.24 Estim Creat Clear Calc 56.07 Est GFR (MDRD) Af Amer 79 Est GFR (MDRD) Non-Af 65 BUN/Creatinine Ratio 11.3 Glucose 132 H Calcium 8.5 Total Bilirubin 0.80 AST 41 H ALT 39 Alkaline Phosphatase 247 H Total Protein 6.7 Albumin 3.2 Globulin 3.5 Albumin/Globulin Ratio 0.9 Lipase 80 Assessment/Plan All Active Problems (Last Updated 10/04/18 @ 23:05 by Ezequiel Zuniga MD) Acute encephalopathy (Resolved) Hyponatremia (Acute) Intractable nausea and vomiting (Acute) Obstipation (Acute) The patient is a 53 year old M with history of neuroendocrine tumor with wide metastasis to liver and bone came to ED with intractable nausea, vomiting and severe obstipation. Patient had last chemo by Dr. Booker on Wednesday. Last time, patient moved his bowel adequately was 1/2 weeks ago. He has loss of appetite and also nausea and throws up even on eating small amount of food. Patient also has abdominal pain, diffuse in nature but predominantly in upper quadrants. Patient was last admitted on November 18, 2018 and discharged on 11/20/2018 for similar problem of intractable nausea and vomiting. Patient has CT abdomen shows prominent fecal retention throughout the ascending, transverse and proximal descending colon with an aberration point in the mid d escending colon with no discrete underlying lesion noted. 1. Severe obstipation along with nausea, vomiting and loss of appetite; multiple etiologies, narcotics, neuroendocrine tumor itself and chemotherapy: Patient is being admitted on the [facility] floor. IV fluid D5 NS at 100 mL/h. Clear liquid diet. Symptomatic treatment for nausea and vomiting. Patient has nausea vomiting with oral laxatives, therefore we will try Dulcolax suppository and tap water enema. Dr. Beltran is been consulted and he suggested Gastrografin enema tomorrow and if that does not work then possible colonoscopy. 2. Abdominal pain secondary to obstipation and malignancy: Pain medication ordered Metastatic neuroendocrine tumor with metastases to liver and bone: Patient is on chemotherapy. Dr. Booker consulted. 3. Cancer cachexia: Physician Neonatology consult. Prealbumin ordered Laboratory Results 01/19/19 16:47: WBC 8.1, RBC 4.23 L, Hgb 13.3, Hct 40.7, MCV 96.2 H, MCH 31.4, MCHC 32.7, RDW 13.9, RDW Differential 48.6 H, Plt Count 263, MPV 10.1, Immature Gran % (Auto) 0.100, Neut % (Auto) 71.5 H, Lymph % (Auto) 13.3 L, Moffat % (Auto) 14.6 H, Eos % (Auto) 0.1, Baso % (Auto) 0.4, Absolute Neuts (auto) 5.8, Absolute Lymphs (auto) 1.08, Total Counted Not Reportable 01/19/19 16:47: Sodium 134 L, Potassium 4.0, Chloride 101, Carbon Dioxide 26.0, Anion Gap 7, BUN 14, Creatinine 1.24, Estim Creat Clear Calc 56.07, Est GFR (MDRD) Af Amer 79, Est GFR (MDRD) Non-Af 65, BUN/Creatinine Ratio 11.3, Glucose 132 H, Calcium 8.5, Total Bilirubin 0.80, AST 41 H, ALT 39, Alkaline Phosphatase 247 H, Total Protein 6.7, Albumin 3.2, Globulin 3.5, Albumin/Globulin Ratio 0.9, Lipase 80 Clinical Impression(s) from Imaging Studies Abdomen/Pelvis CT 01/19/19 16:27 IMPRESSION: 1. Diffuse hepatic metastasis 2. Metastatic disease of the osseous structures 3. Prominent fecal retention throughout the ascending, transverse and proximal descending colon with an abrupt transition point in the mid descending colon no discrete underlying lesion is noted however, not fully excluded Code Visit Inpatient E&M: 40147 Init Hosp L3
[2019-01-19 19:22] VITALS: BMI 19.4
[2019-01-19 19:27] VITALS: RESP 18
[2019-01-19 19:35] VITALS: BMI 19.2
[2019-01-19] MEDS: Dextrose 5%/0.9% NaCl 1,000 ML 100 ML IV (21:30)
[2019-01-19] MEDS: Metoclopramide 10 MG Tablet PO (21:31)
[2019-01-19] MEDS: Enoxaparin 40 MG/0.4 ML Syringe SC (21:31)
[2019-01-19] MEDS: HYDROmorphone 2 MG TABLET PO (21:31)
[2019-01-19 21:42] VITALS: BP 135/88; PULSE 95; RESP 14; TEMP 36.9; O2SAT 97
[2019-01-20] VITALS (14 sets, daily range): BP systolic 138–154; BP diastolic 70–102; PULSE 72–95; RESP 14–16; TEMP 36.3–37.2; O2SAT 97–100; BMI 19.2
[2019-01-20] MEDS: Zolpidem Tartrate 5 MG Tablet PO ×2 (00:02→22:58)
[2019-01-20] MEDS: Dicyclomine 10 MG Capsule PO (04:25)
[2019-01-20] MEDS: HYDROmorphone 2 MG TABLET PO (04:25)
--- NOTE | 2019-01-20 05:58 | RAD_ITS ---
STUDY: THERAPEUTIC GASTROGRAFIN ENEMA. REASON FOR EXAM: Male, 53 years old. Constipation. FLUOROSCOPY TIME (if supplied): (1:11) minutes/seconds. 7 images were obtained. TECHNIQUE: A clinical biochemical geneticist film was obtained. Following this, Gastrografin was introduced retrograde through the rectum. COMPARISON: None. FINDINGS: On the clinical biochemical geneticist view, a large amount of fecal material is seen throughout the colon. Gastrografin was introduced retrograde. Large amount of fecal material is seen. There is no evidence of obstruction to the flow of contrast. A large amount of residual fecal material is seen on the postevacuation study. RAD/Therapeutic Enema IMPRESSION: Attempted therapeutic Gastrografin barium enema. Electronically Signed: [place], at 13:10 EDT , Service support ,
[2019-01-20 06:15] LABS: Absolute Lymphocyte Count 1.31 X10^3/ul (0.83-4.51); Absolute Neutrophil Count 3.5 X10^3/uL (2.0-7.7); Basophil# 0.05 X10^3/uL; Basophil% 0.8 % (0-1); Eosinophil# 0.06 X10^3/uL; Hemoglobin 11.5 g/dl (13.0-16.5); Lymphocyte # 1.31 X10^3/ul (4.0); Lymphocyte % 21.6 % (19-41); Mean Corp Hgb Conc 32.9 g/gl (32-36); Mean Corpuscular Hgb 31.7 pg (27.0-32.0); Mean Corpuscular Volume 96.4 fL (80-94); Mean Platelet Vol. 10.9 fl (6.2-12.0); Monocyte# 1.12 X10^3/uL; Monocyte% 18.5 % (0-10); Neutrophil % 57.6 % (47-70); Platelet Count 235 K/mm3 (150-450); RBC Distribution Width CV 13.1 % (11.6-14.6); RBC Distribution Width SD 44.8 fl (35.1-43.9); Red Blood Count 3.63 M/mm3 (4.6-6.2); White Blood Count 6.1 K/mm3 (4.4-11.0)
[2019-01-20 06:21] LABS: Anion Gap 7 (5-15); BUN 11 mg/dL (7-18); BUN/Creat Ratio 11.4 RATIO (10-20); Chloride 105 mmol/L (98-107); Creatinine, Serum 0.96 mg/dL (0.70-1.30); EST Glomerular Filtration Rate 88 mL/min (>60); Est Glom Filt Rate - Afr Amer 106 mL/min (>60); Estimated Creatinine Clearance 71.72 ml/min; Glucose 130 mg/dL (74-106); POSITIVE COUNT NO; POSITIVE DIFFERENTIAL NO; POSITIVE MORPHOLOGY NO; Potassium 3.6 mmol/L (3.5-5.1); Sodium Level 135 mmol/L (136-145)
[2019-01-20] MEDS: Dextrose 5%/0.9% NaCl 1,000 ML 100 ML IV ×2 (07:42→21:33)
[2019-01-20] MEDS: Ondansetron 4 MG/2 ML Vial IV ×2 (10:48→18:33)
[2019-01-20] MEDS: 0.9% NaCl Peripheral Flush Adult/Peds IV ×4 (10:48→18:33)
[2019-01-20] MEDS: HYDROmorphone 1 MG/ML Syringe IV ×4 (11:11→21:33)
[2019-01-20] MEDS: Electrolyte Solution/Peg's 4000 ML PO (12:45)
--- NOTE | 2019-01-20 13:18 | PCM.CONS.GEN ---
Reason for Consult Date of Consultation: 01/20/19 Reason for Consultation: fecal impaction History of Present Illness: The patient is a 53 year old M who is noted constipation without a bowel movement for approximately last 10 days. The patient is tried enemas at home and oral agents. He now notes discomfort to the point that he cannot tolerate any further oral agents. He presented to [facility] emergency room last night. CT scan of the abdomen and pelvis demonstrated significant fecal loading of the cecum to the transverse colon with relative evacuation of the sigmoid area. The patient has a history of metastatic neuroendocrine tumor.he is on multiple medications to continue to do this issue including methadone, Dilaudid, Roxicodone, and, I believe octreotide. Past Medical History Past Medical History (Chronic Problems): Chronic Problems (Last Updated 08/11/18 @ 23:05 by Ezequiel Zuniga MD) Neuroendocrine cancer (Chronic) With wide metastasis Medical History: Medical History (Last Updated 08/11/18 @ 23:05 by Ezequiel Zuniga MD) Neuroendocrine cancer C7A.8 Allergies DUST Allergy (Uncoded 01/19/19 16:03) Other Home Medications: Ambulatory Orders Medication Instructions Recorded Dicyclomine HCl [Bentyl] 10 mg PO 4X/DAY PRN PRN 08/11/18 DiphenhydrAMINE [Benadryl] 25 mg PO QHS PRN PRN 08/11/18 Fluticasone 0.05% [Flonase Nasal 1 spray NASAL PRN PRN 08/11/18 [place]] Lactulose 30 ml PO BID PRN PRN 08/11/18 Metoclopramide HCl 10 mg PO Q6H PRN 08/11/18 Naproxen Sodium [Aleve] 440 mg PO BID PRN PRN 08/11/18 Pantoprazole Sodium [Protonix] 20 mg PO DAILY 08/11/18 Sennosides/Docusate Sodium [Senna 3 tab PO BID PRN 08/11/18 Plus Tablet] Oxycodone [Oxyir] 5 mg PO Q6H PRN PRN 11/02/18 Albuterol Inhaler [Ventolin Hfa] 2 puff INHALATION Q4H PRN PRN 11/18/18 Amlodipine [Norvasc] 10 mg PO DAILY 11/18/18 HYDROmorphone tablet [Dilaudid] 2 - 4 mg PO Q3H PRN PRN 11/18/18 Melatonin 3 mg PO QHS PRN 11/18/18 Ondansetron [Zofran] 8 mg PO Q8H PRN PRN 11/18/18 Polyethylene Glycol 3350 [Miralax] 17 gm PO DAILY PRN PRN 11/18/18 Magnesium Oxide [Mag-Ox 400] 800 mg PO DAILY 01/19/19 Methadone HCl 2.5 mg PO BID 01/19/19 Temazepam [Restoril] 7.5 mg PO QHS 01/19/19 Surgical History: - - fusion of wrist; silicon buckle left eye Smoking Status: Never smoker Tobacco Use: Non-smoker - *Family History Maternal History Items: Cancer - colon Paternal History Items: Heart Disease - Dad had heart attack in his 70s Review of Systems Constitutional: Reports: Anorexia. Denies: Chills, Fever, Weight Change HEENT: Denies: Head Aches, Sinus Congestion, Sinus Drainage Cardiovascular: Denies: Chest Pain, Palpitations Respiratory: Denies: Cough, Shortness of breath at rest, Sputum production Gastrointestinal: Reports: Abdominal Pain, Constipation. Denies: Nausea, Vomiting Genitourinary: Denies: Dysuria Musculoskeletal: Denies: Joint Pain, Joint Tenderness Skin: Denies: Rash, Wounds Neurological: Denies: Numbness, Tingling, Focal weakness Psychiatric: Denies: Anxiety, Depression, Homicidal Ideations, Suicidal Ideations Hematologic/ Lymphatic: Denies: Easy Bruising, Easy Bleeding Patient Problems: Active and Suspected Problems (Last Updated 08/11/18 @ 23:05 by Ezequiel Zuniga MD) Obstipation (Acute) - Physical Exam General: Alert, Oriented x3, Cooperative HEENT: Atraumatic, PERRLA, EOMI, Normocephalic Neck: Supple, No JVD, Negative Carotid Bruits Lungs: Clear to auscultation, Normal air movement Cardiovascular: Regular rate, No murmurs Abdomen: Bowel Sounds Present, Soft, Tender - in the right upper quadrant with likely palpable costal margin consistent with his metastatic disease in his liver. Some fullness in the right abdominal quadrants consistent with fecal impaction no peritoneal signs Extremities: No edema, Capillary Refill Less than 3 Seconds Skin: No rashes, No breakdown Musculoskeletal: No Tenderness to Palpation of Joints or Extremities Neurological: Cranial nerves II-XII grossly intact Psych/Mental Status: Normal Affect, Appropriate Vital Signs Temp Pulse Resp BP Pulse Ox 98.3 F 90 16 143/87 H 100 01/20/19 12:01 01/20/19 12:01 01/20/19 12:01 01/20/19 12:01 01/20/19 12:01 Oxygen Delivery Method Room Air Weight: 55.7 kg Body Mass Index (BMI) 19.2 Intake and Output for Last 24 Hours 01/18/19 01/19/19 01/20/19 23:59 23:59 23:59 Intake Total 2073 Balance 2073 Laboratory Tests Past 24 Hrs 01/19/19 01/19/19 01/20/19 16:47 16:47 05:32 WBC 8.1 6.1 RBC 4.23 L 3.63 L Hgb 13.3 11.5 L Hct 40.7 35.0 L MCV 96.2 H 96.4 H MCH 31.4 31.7 MCHC 32.7 32.9 RDW 13.9 13.1 RDW Differential 48.6 H 44.8 H Plt Count 263 235 MPV 10.1 10.9 Immature Gran % (Auto) 0.100 0.500 Neut % (Auto) 71.5 H 57.6 Lymph % (Auto) 13.3 L 21.6 Yell % (Auto) 14.6 H 18.5 H Eos % (Auto) 0.1 1.0 Baso % (Auto) 0.4 0.8 Absolute Neuts (auto) 5.8 3.5 Absolute Lymphs (auto) 1.08 1.31 Total Counted Not Reportable Not Reportable Sodium 134 L Potassium 4.0 Chloride 101 Carbon Dioxide 26.0 Anion Gap 7 BUN 14 Creatinine 1.24 Estim Creat Clear Calc 56.07 Est GFR (MDRD) Af Amer 79 Est GFR (MDRD) Non-Af 65 BUN/Creatinine Ratio 11.3 Glucose 132 H Calcium 8.5 Total Bilirubin 0.80 AST 41 H ALT 39 Alkaline Phosphatase 247 H Total Protein 6.7 Albumin 3.2 Globulin 3.5 Albumin/Globulin Ratio 0.9 Lipase 80 01/20/19 05:32 WBC RBC Hgb Hct MCV MCH MCHC RDW RDW Differential Plt Count MPV Immature Gran % (Auto) Neut % (Auto) Lymph % (Auto) Yell % (Auto) Eos % (Auto) Baso % (Auto) Absolute Neuts (auto) Absolute Lymphs (auto) Total Counted Sodium 135 L Potassium 3.6 Chloride 105 Carbon Dioxide 23.0 Anion Gap 7 BUN 11 Creatinine 0.96 Estim Creat Clear Calc 71.72 Est GFR (MDRD) Af Amer 106 Est GFR (MDRD) Non-Af 88 BUN/Creatinine Ratio 11.4 Glucose 130 H Calcium 8.0 L Total Bilirubin AST ALT Alkaline Phosphatase Total Protein Albumin Globulin Albumin/Globulin Ratio Lipase Assessment/Plan All Active Problems (Last Updated 08/11/18 @ 23:05 by Ezequiel Zuniga MD) Acute encephalopathy (Resolved) Hyponatremia (Acute) Intractable nausea and vomiting (Acute) Obstipation (Acute) metastatic carcinoid, multiple medications which can contribute to constipation The patient was admitted for IV fluids. He can be maintained on clear liquids as tolerated. I will plan to obtain a Gastrografin enema this morning to see if this can loosen up his impacted stool. I then plan for colonoscopic disimpaction with Ez. The patient understands the risks, benefits, possible complications including perforation consents to the planned procedure.
--- NOTE | 2019-01-20 14:12 | OP.ENDO_ITS ---
01/20/2019 Samy Lewis [address] [place] [address] Re : Colonoscopy procedure for Benji Patino Dear Dr. Lewis This procedure was performed on Sunday, January 20, 2019. My impressions and recommendations are as follows: Impressions : - Stool in the transverse colon. - No specimens collected. Recommendations : - Discharge patient to home. - Resume previous diet. - Continue present medications. - Repeat colonoscopy PRN. My findings are described in the full procedure note, which is enclosed. If I can be of further assistance, please feel free to contact me at Doctor phone number(s): , Work: . Sincerely, Wilfredo Qureshi MD 01/20/2019 2:12:04 PM This report has been signed electronically.
--- NOTE | 2019-01-20 14:15 | CASEMGMT ---
Social Work Note SW attempted to see pt for emotional support regarding cancer diagnosis. Pt currently off floor for procedure. Erin Posey GROUP FITNESS INSTRUCTOR, PUBLIC HEALTH PHYSICIAN
--- NOTE | 2019-01-20 15:57 | CASEMGMT ---
RN CM Face to Face with patient for initial transition planning/care coordination assessment. RN CM introduced self and role at [facility]. Patient lying in bed, alert and oriented, family at bedside. Patient willing to participate in assessment and is able to answer all questions appropriately. Care providers, pharmacy, and demographics verified. Patient wishes to discharge home, denies need for home health at this time. Patient states he has no further needs or concerns at this time. CM to follow for discharge planning needs that may arise. PCP: Joshua Specialists: Jhony, oncologist Preferred Pharmacy: [facility] Insurance: MMO Prescription Benefit: yes Living Will/HPOA: Yes, Tiara Patino LNOK: , son Living Arrangements: Patient lives with in 1 story home with 2 steps to enter the home. Patient states he is independent at home. Transportation: self/family DME/HHC: Patient denies DME at this time. Patient states he is active with palliative. Denies HHC at this time. Disposition Plan: Patient to discharge home with family support, palliative care, and follow-up plans in place. Erin DAVIS, RN, CM
[2019-01-20] MEDS: Enoxaparin 40 MG/0.4 ML Syringe SC (18:33)
[2019-01-20] MEDS: Pantoprazole Sodium 20 MG Tablet PO (18:33)
[2019-01-20] MEDS: Magnesium Oxide 400 MG Tablet 800 MG PO (18:33)
[2019-01-20] MEDS: amLODIPine 10 MG Tablet PO (18:33)
[2019-01-20] MEDS: Ensure Clear 120 ML Liquid PO (18:34)
--- NOTE | 2019-01-20 19:47 | PCM.PROGNOTE ---
Subjective: Patient is a 53-year-old male with neuroendocrine tumor and widespread metastasis. He was admitted to the hospital with a diagnosis of intractable nausea and vomiting and obstipation. He had not had a BM for [address] scan of the abd and the pelvis demonstrated a large amount feces throughout the entire colon. He was seen in consultation by Dr. Qureshi today and went for a colonoscopy with colonoscopic disimpaction with deisi. He feels less distended and less nauseated. PHYSICAL EXAM: GENERAL: alert, oriented X 3, Cooperative ORAL: moist mucosa, no mucosal lesions NECK: No JVD, supple, trachea midline LUNGS: CTA, symmetric chest expansion HEART: RRR, Normal S1 and S2, no rub, no gallop ABDOMEN: soft, distended, tender to palpation diffusely but, no guarding EXTREMITIES: no edema, no cyanosis, no calf tenderness SKIN: No rashes, no breakdown NEUROLOGIC: no focal neurologic deficits PSYCH: appropriate, normal affect, pleasant - Physical Exam Vital Signs Temp Pulse Resp BP Pulse Ox 97.5 F L 72 16 154/93 H 97 01/20/19 14:42 01/20/19 14:57 01/20/19 14:42 01/20/19 14:42 01/20/19 16:21 Oxygen Delivery Method Room Air Weight: 122 lb 12.76 oz Body Mass Index (BMI) 19.2 Intake and Output for Last 24 Hours 01/18/19 01/19/19 01/20/19 23:59 23:59 23:59 Intake Total 3220 / 3220 Balance 3220 / 3220 Laboratory Tests Past 24 Hrs 01/20/19 01/20/19 05:32 05:32 WBC 6.1 RBC 3.63 L Hgb 11.5 L Hct 35.0 L MCV 96.4 H MCH 31.7 MCHC 32.9 RDW 13.1 RDW Differential 44.8 H Plt Count 235 MPV 10.9 Immature Gran % (Auto) 0.500 Neut % (Auto) 57.6 Lymph % (Auto) 21.6 [place] % (Auto) 18.5 H Eos % (Auto) 1.0 Baso % (Auto) 0.8 Absolute Neuts (auto) 3.5 Absolute Lymphs (auto) 1.31 Total Counted Not Reportable Sodium 135 L Potassium 3.6 Chloride 105 Carbon Dioxide 23.0 Anion Gap 7 BUN 11 Creatinine 0.96 Estim Creat Clear Calc 71.72 Est GFR (MDRD) Af Amer 106 Est GFR (MDRD) Non-Af 88 BUN/Creatinine Ratio 11.4 Glucose 130 H Calcium 8.0 L Medical Necessity - Tobacco Use Smoking Status: Never smoker Tobacco Use: Non-smoker Assessment/Plan All Active Problems (Last Updated 08/11/18 @ 23:05 by Ezequiel Zuniga MD) Acute encephalopathy (Resolved) Hyponatremia (Acute) Intractable nausea and vomiting (Acute) Obstipation (Acute) Impressions 1. Severe obstipation with nausea/vomiting/loss of appetite secondary to multiple constipating medications. 2. Abdominal pain secondary to obstipation and malignancy 3. Metastatic neuroendocrine tumor-followed and treated by Dr. Booker 4. Malnutrition - moderate with severe weight loss Orders written by Dr. Qureshi. Maintain in the hospital tonight and repeat the KUB in the AM Code Visit Inpatient E&M: 67035 Subs Hosp L2
[2019-01-20] MEDS: Metoclopramide 10 MG Tablet PO (22:58)
[2019-01-21 04:07] VITALS: BP 163/109; PULSE 88; RESP 15; TEMP 37.1; O2SAT 100
[2019-01-21] MEDS: Ondansetron 4 MG/2 ML Vial IV ×2 (04:09→10:56)
[2019-01-21] MEDS: HYDROmorphone 1 MG/ML Syringe IV ×3 (04:09→12:56)
--- NOTE | 2019-01-21 05:00 | RAD_ITS ---
STUDY: X-RAY - ABDOMEN/PELVIS REASON FOR EXAM: Male, 53 years old. History of constipation, history of cancer with metastases. TECHNIQUE: AP supine and upright views of the abdomen and pelvis. COMPARISON: None. FINDINGS: Normal visualized lung bases. There is residual contrast in the colon from previous contrast study. There are nonspecific gaseous bowel loops. There is no demonstrated free abdominal air. Normal soft tissue structures. Normal visualized osseous structures. RAD/Abd Inc Decub and/or Erect IMPRESSION: Nonobstructive gas pattern. Electronically Signed: Carlyle Colunga MD at 8:50 EDT Tel , Service support ,
--- NOTE | 2019-01-21 07:22 | PCM.PN.SRG ---
Patient Problems: Active and Suspected Problems (Last Updated 08/11/18 @ 23:05 by Ezequiel Zuniga MD) Obstipation (Acute) Subjective: some liquid bowel movements and stool since last night. Resolved abdominal bloating and pain - Physical Exam General: Alert, Oriented x3, Cooperative Lungs: Clear to auscultation Cardiovascular: Regular rate Abdomen: Bowel Sounds Present, Soft, Non Tender Vital Signs Temp Pulse Resp BP Pulse Ox 98.7 F 88 15 163/109 H 100 01/21/19 04:07 01/21/19 04:07 01/21/19 04:07 01/21/19 04:07 01/21/19 04:07 Oxygen Delivery Method Room Air Weight: 55.7 kg Body Mass Index (BMI) 19.2 Intake and Output for Last 24 Hours 01/19/19 01/20/19 01/21/19 23:59 23:59 23:59 Intake Total 3220 / 3220 1129 / 1129 Balance 3220 / 3220 1129 / 1129 Medical Necessity - Tobacco Use Smoking Status: Never smoker Tobacco Use: Non-smoker Assessment/Plan All Active Problems (Last Updated 08/11/18 @ 23:05 by Ezequiel Zuniga MD) Acute encephalopathy (Resolved) Hyponatremia (Acute) Intractable nausea and vomiting (Acute) Obstipation (Acute) metastatic carcinoid, multiple medications which can contribute to constipation - severe fecal impaction Gastrografin enema and colonoscopy with irrigation of 4 L of GoLYTELY into the colon yesterday for disimpaction was at least partially successful. KUB today demonstrates stool in the right colon with relative evacuation of the transverse colon to rectum. as the patient is pain-free this morning, I am comfortable with the patient being discharged on clear liquids with one capful of Asha lax in 8 ounces of what ever close liquid he would like 4-6 times per day. I would like him to follow-up in my office on Wednesday and obtain an abdominal x-ray prior to that visit.
[2019-01-21] MEDS: Dextrose 5%/0.9% NaCl 1,000 ML 100 ML IV (07:25)
[2019-01-21 07:49] VITALS: O2SAT 96
--- NOTE | 2019-01-21 08:51 | PCM.PN.PAL ---
Progress Note- Hospice Date: 01/21/19 Subjective: Patient had bowel movement yesterday. No nausea vomiting, abdomen is not bloated today. Pain is controlled/managed. Revised bowel regimen discussed today. Objective: Vital Signs Temp 98.7 F 01/21/19 04:07 Pulse 88 01/21/19 04:07 Resp 15 01/21/19 04:07 BP 163/109 H 01/21/19 04:07 Pulse Ox 96 01/21/19 07:49 Intake & Output 01/19/19 01/20/19 01/21/19 23:59 23:59 23:59 Intake Total 3220 / 3220 1129 / 1129 Balance 3220 / 3220 1129 / 1129 Weight: 122 lb 12.76 oz 122 lb 12.76 oz Intake: Oral 1540 / 1540 200 / 200 IV fluid/meds 1680 / 1680 929 / 929 IV #1 250 / 250 Other: Number of Voids 2 Current Medications Acetaminophen (Tylenol) 650 mg PO Q6H PRN PRN PRN Reason: Mild Pain (scale 0-3)/T>100.7 Albuterol Sulfate (Ventolin Aerosols) 2.5 mg INHALATION Q4H PRN PRN PRN Reason: SOB &/OR WHEEZING Amlodipine Besylate (Norvasc) 10 mg PO DAILY [facility] Last Admin: 01/20/19 18:33 Dose: 10 mg Dicyclomine HCl (Bentyl) 10 mg PO 4X/DAY PRN PRN PRN Reason: abdominal cramping Last Admin: 01/20/19 04:25 Dose: 10 mg Diphenhydramine HCl (Benadryl) 25 mg PO QHS PRN PRN PRN Reason: ALLERGIES Enoxaparin Sodium (Lovenox) 40 mg SC DAILY@1000 BISI Last Admin: 01/20/19 18:33 Dose: 40 mg Fluticasone Propionate (Flonase Nasal [place]) 1 spray NASAL DAILY PRN PRN Reason: ALLERGIES Hydromorphone HCl (Dilaudid Tablet) 2 - 4 mg PO Q3H PRN PRN PRN Reason: PAIN Last Admin: 01/20/19 04:25 Dose: 4 mg Hydromorphone HCl (Dilaudid Inj) 1 mg IV Q3H PRN PRN PRN Reason: SEVERE PAIN (6-10/10) Last Admin: 01/21/19 04:09 Dose: 1 mg Dextrose/Sodium Chloride (Dextrose 5%/0.9% Nacl) 1,000 mls @ 100 mls/hr IV .Q10H [facility] Last Admin: 01/21/19 07:25 Dose: 100 mls/hr Magnesium Hydroxide (Milk Of Magnesia) 30 ml PO DAILY PRN PRN PRN Reason: Constipation Magnesium Oxide (Mag-Ox 400) 800 mg PO DAILY [facility] Last Admin: 01/20/19 18:33 Dose: 800 mg Melatonin (Melatonin) 3 mg PO QHS PRN PRN Reason: INSOMNIA Methadone HCl () 2.5 mg PO BID [facility] Last Admin: 01/20/19 21:33 Dose: 2.5 mg Metoclopramide HCl (Reglan) 10 mg PO Q6H PRN PRN Reason: NAUSEA Last Admin: 01/20/19 22:58 Dose: 10 mg Morphine Sulfate () 2 mg IV Q3H PRN PRN Reason: severe pain Nutritional Formula (Lactose Free) (Ensure Clear) 120 ml PO 4X/DAY [facility] Last Admin: 01/20/19 21:28 Dose: Not Given Ondansetron HCl (Zofran) 4 - 8 mg IV Q6H PRN PRN PRN Reason: NAUSEA Last Admin: 01/21/19 04:09 Dose: 4 mg Oxycodone HCl (Oxyir) 5 mg PO Q6H PRN PRN PRN Reason: PAIN Pantoprazole Sodium (Protonix) 20 mg PO DAILY [facility] Last Admin: 01/20/19 18:33 Dose: 20 mg Senna/Docusate Sodium (Senokot-S, Soni-Colace) 3 tablet PO BID PRN PRN Reason: Constipation Sodium Chloride () 5 - 15 ml IV UD PRN PRN Reason: SALINE FLUSH Last Admin: 01/20/19 18:33 Dose: 10 ml Zolpidem Tartrate (Ambien (Generic)) 5 mg PO QHS [facility] Last Admin: 01/20/19 22:58 Dose: 5 mg - Physical Exam General: Alert, Oriented x3, No apparent distress HEENT: Atraumatic, PERRLA, EOMI Oral: Moist Mucosa, No Gingival or Mucosal Lesions/ Ulcerations Neck: Supple, No JVD Lungs: Clear to auscultation Cardiovascular: Regular rate, Regular Rhythm, Normal S1, Normal S2, No murmurs Abdomen: Bowel Sounds Present, Soft, Non-Distended Extremities: No clubbing, No cyanosis, No edema Skin: No rashes, Skin Tear Musculoskeletal: No Tenderness to Palpation of Joints or Extremities Lymphatic: No Cervical, Supraclavicular, or Inguinal Adenopathy Neurological: Neuro grossly intact Psych/Mental Status: Normal Affect Capacity - Capacity Assessment Tool Can the patient understand benefits, risks and alternatives?: Yes Can the patient make a logical, rational choice?: Yes Is the choice the patient makes consistent w/ their values?: Yes Is there an impending, emergent risk to the patient?: No Does the patient have an Advance Directive?: No Is there a Surrogate Available?: No i.e. HCPOA: No i.e. 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 undergoing palliative chemotherapy -Pain secondary to metastatic cancer from bone and liver metastasis -Intractable nausea vomiting secondary to cancer and chemotherapy and also obstipation -Obstipation secondary to narcotics, dehydration, immobility - resolved Plan: -We will probably discharge home today and follow-up with palliative care ([facility]) for symptom management -Continue pain regimen and follow-up with PC -Continue Zofran and Reglan as needed for nausea -Revised bowel regiment: Increase and titrate Senokot & add Dulcolax BID prn (tabs or suppository), increased fluid uptake & improve mobility with occasional Zahra prn cc: Dr. Anastacio Booker, Reyna Loaiza, ECHOCARDIOGRAPHER-[facility], Dr. Wilfredo Qureshi, Dr. Betsy Paz
--- NOTE | 2019-01-21 09:00 | PN.PALL_ITS ---
Progress Note- Hospice Date: 01/21/19 Subjective: Patient had bowel movement yesterday. No nausea vomiting, abdomen is not bloated today. Pain is controlled/managed. Revised bowel regimen discussed today. Objective: Vital Signs Temp 98.7 F 01/21/19 04:07 Pulse 88 01/21/19 04:07 Resp 15 01/21/19 04:07 BP 163/109 H 01/21/19 04:07 Pulse Ox 96 01/21/19 07:49 Intake & Output 01/19/19 01/20/19 01/21/19 23:59 23:59 23:59 Intake Total 3220 / 3220 1129 / 1129 Balance 3220 / 3220 1129 / 1129 Weight: 122 lb 12.76 oz 122 lb 12.76 oz Intake: Oral 1540 / 1540 200 / 200 IV fluid/meds 1680 / 1680 929 / 929 IV #1 250 / 250 Other: Number of Voids 2 Current Medications Acetaminophen (Tylenol) 650 mg PO Q6H PRN PRN PRN Reason: Mild Pain (scale 0-3)/T>100.7 Albuterol Sulfate (Ventolin Aerosols) 2.5 mg INHALATION Q4H PRN PRN PRN Reason: SOB &/OR WHEEZING Amlodipine Besylate (Norvasc) 10 mg PO DAILY [facility] BEDS AT [facility] Last Admin: 01/20/19 18:33 Dose: 10 mg Dicyclomine HCl (Bentyl) 10 mg PO 4X/DAY PRN PRN PRN Reason: abdominal cramping Last Admin: 01/20/19 04:25 Dose: 10 mg Diphenhydramine HCl (Benadryl) 25 mg PO QHS PRN PRN PRN Reason: ALLERGIES Enoxaparin Sodium (Lovenox) 40 mg SC DAILY@1000 BISI Last Admin: 01/20/19 18:33 Dose: 40 mg Fluticasone Propionate (Flonase Nasal [place]) 1 spray NASAL DAILY PRN PRN Reason: ALLERGIES Hydromorphone HCl (Dilaudid Tablet) 2 - 4 mg PO Q3H PRN PRN PRN Reason: PAIN Last Admin: 01/20/19 04:25 Dose: 4 mg Hydromorphone HCl (Dilaudid Inj) 1 mg IV Q3H PRN PRN PRN Reason: SEVERE PAIN (6-10/10) Last Admin: 01/21/19 04:09 Dose: 1 mg Dextrose/Sodium Chloride (Dextrose 5%/0.9% Nacl) 1,000 mls @ 100 mls/hr IV .Q10H [facility]S [facility]CLUDE 234 BEDS AT THE [facility] Last Admin: 01/21/19 07:25 Dose: 100 mls/hr Magnesium Hydroxide (Milk Of Magnesia) 30 ml PO DAILY PRN PRN PRN Reason: Constipation Magnesium Oxide (Mag-Ox 400) 800 mg PO DAILY [facility]CLUDE 234 BEDS AT THE [facility] Last Admin: 01/20/19 18:33 Dose: 800 mg Melatonin (Melatonin) 3 mg PO QHS PRN PRN Reason: INSOMNIA Methadone HCl () 2.5 mg PO BID [facility]CLUDE 234 BEDS AT THE [facility] Last Admin: 01/20/19 21:33 Dose: 2.5 mg Metoclopramide HCl (Reglan) 10 mg PO Q6H PRN PRN Reason: NAUSEA Last Admin: 01/20/19 22:58 Dose: 10 mg Morphine Sulfate () 2 mg IV Q3H PRN PRN Reason: severe pain Nutritional Formula (Lactose Free) (Ensure Clear) 120 ml PO 4X/DAY COUNTS INCLUDE 234 BEDS AT THE [facility] Last Admin: 01/20/19 21:28 Dose: Not Given Ondansetron HCl (Zofran) 4 - 8 mg IV Q6H PRN PRN PRN Reason: NAUSEA Last Admin: 01/21/19 04:09 Dose: 4 mg Oxycodone HCl (Oxyir) 5 mg PO Q6H PRN PRN PRN Reason: PAIN Pantoprazole Sodium (Protonix) 20 mg PO DAILY [facility]CLUDE 234 BEDS AT THE [facility] Last Admin: 01/20/19 18:33 Dose: 20 mg Senna/Docusate Sodium (Senokot-S, Soni-Colace) 3 tablet PO BID PRN PRN Reason: Constipation Sodium Chloride () 5 - 15 ml IV UD PRN PRN Reason: SALINE FLUSH Last Admin: 01/20/19 18:33 Dose: 10 ml Zolpidem Tartrate (Ambien (Generic)) 5 mg PO QHS [facility]S [facility]CLUDE 234 BEDS AT THE [facility] Last Admin: 01/20/19 22:58 Dose: 5 mg - Physical Exam General: Alert, Oriented x3, No apparent distress HEENT: Atraumatic, PERRLA, EOMI Oral: Moist Mucosa, No Gingival or Mucosal Lesions/ Ulcerations Neck: Supple, No JVD Lungs: Clear to auscultation Cardiovascular: Regular rate, Regular Rhythm, Normal S1, Normal S2, No murmurs Abdomen: Bowel Sounds Present, Soft, Non-Distended Extremities: No clubbing, No cyanosis, No edema Skin: No rashes, Skin Tear Musculoskeletal: No Tenderness to Palpation of Joints or Extremities Lymphatic: No Cervical, Supraclavicular, or Inguinal Adenopathy Neurological: Neuro grossly intact Psych/Mental Status: Normal Affect Capacity - Capacity Assessment Tool Can the patient understand benefits, risks and alternatives?: Yes Can the patient make a logical, rational choice?: Yes Is the choice the patient makes consistent w/ their values?: Yes Is there an impending, emergent risk to the patient?: No Does the patient have an Advance Directive?: No Is there a Surrogate Available?: No i.e. HCPOA: No i.e. 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 undergoing palliative chemotherapy -Pain secondary to metastatic cancer from bone and liver metastasis -Intractable nausea vomiting secondary to cancer and chemotherapy and also obstipation -Obstipation secondary to narcotics, dehydration, immobility - resolved Plan: -We will probably discharge home today and follow-up with palliative care ([facility]) for symptom management -Continue pain regimen and follow-up with PC -Continue Zofran and Reglan as needed for nausea -Revised bowel regiment: Increase and titrate Senokot & add Dulcolax BID prn (tabs or suppository), increased fluid uptake & improve mobility with occasional Zahra prn cc: Dr. Anastacio Booker, Reyna Loaiza, [employer] INSTRUMENT TUNER-[facility], Dr. Wilfredo Qureshi, Dr. Betsy Paz
[2019-01-21 09:10] VITALS: BP 156/93; PULSE 83; RESP 15; TEMP 36.3; O2SAT 99
[2019-01-21] MEDS: Magnesium Oxide 400 MG Tablet 800 MG PO (09:21)
[2019-01-21] MEDS: amLODIPine 10 MG Tablet PO (09:21)
[2019-01-21] MEDS: Pantoprazole Sodium 20 MG Tablet PO (09:22)
[2019-01-21] MEDS: 0.9% NaCl Peripheral Flush Adult/Peds IV ×2 (09:22→12:57)
[2019-01-21] MEDS: Senna/Docusate Sodium 1 Tablet 3 TABLET PO (10:55)
--- NOTE | 2019-01-21 12:07 | PCM.DC ---
- Discharge Diagnoses Current Active Problems: Current Active and Chronic Problems (Last Updated 08/11/18 @ 23:05 by Ezequiel Zuniga MD) Obstipation (Acute) You will use the following diet at home:: Clear liquid Your liquids should be the consistency of: Regular/Thin Discharge Activity: Return to Normal Activity Call your doctor if you observe: Fever of 101 or Higher, Inability to have a bowel movement, Uncontrolled pain, - - recurrent nausea and vomiting Additional Instructions: Dr. Qureshi would like you to stay on clear liquids until the colon is completely cleaned out. He recommends 1 capful of MiraLAX in 8 ounces of fluid 4-6 times per day. He would like to see you in his office on Wednesday and to obtain an abdominal x-ray prior to that visit. I have given you a prescripton for Magnesium oxide and gave you enough to take 800 mg twice a day. Your blood pressure was somewhat high in the hospital and I increased the Amlodipine to 10 mg daily. Allergies/Adverse Reactions: Allergies DUST Allergy (Uncoded 01/19/19 16:03) Other Medications to take at Discharge Dicyclomine HCl [Bentyl] 10 mg PO 4X/DAY PRN PRN 08/11/18 DiphenhydrAMINE [Benadryl] 25 mg PO QHS PRN PRN 08/11/18 Fluticasone 0.05% [Flonase Nasal [place]] 1 spray NASAL PRN PRN 08/11/18 Metoclopramide HCl 10 mg PO Q6H PRN 08/11/18 Naproxen Sodium [Aleve] 440 mg PO BID PRN PRN 08/11/18 Pantoprazole Sodium [Protonix] 20 mg PO DAILY 08/11/18 Sennosides/Docusate Sodium [Senna Plus Tablet] 3 tab PO BID PRN 08/11/18 Oxycodone [Oxyir] 5 mg PO Q6H PRN PRN 11/02/18 Albuterol Inhaler [Ventolin Hfa] 2 puff INHALATION Q4H PRN PRN 11/18/18 HYDROmorphone tablet [Dilaudid] 2 - 4 mg PO Q3H PRN PRN 11/18/18 Melatonin 3 mg PO QHS PRN 11/18/18 Ondansetron [Zofran] 8 mg PO Q8H PRN PRN 11/18/18 Polyethylene Glycol 3350 [Miralax] 17 gm PO DAILY PRN PRN 11/18/18 Methadone HCl 2.5 mg PO BID 01/19/19 Temazepam [Restoril] 7.5 mg PO QHS 01/19/19 Amlodipine [Norvasc] 10 mg PO DAILY #30 tablet 01/21/19 Magnesium Oxide [Mag-Ox 400] 800 mg PO BID #120 tablet 01/21/19 The following prescriptions were given: Amlodipine [Norvasc] 10 mg PO DAILY #30 tablet Magnesium Oxide [Mag-Ox 400] 800 mg PO BID #120 tablet Primary Care Physician: Samy Lewis MD [Primary Care Provider] - Please follow up with your Primary Care Physician in: 1 week for a BP check Test Results: Test results from this visit will be discussed in further detail at your follow-up appointment, if applicable. Please Follow Up With: Wilfredo Qureshi MD When: Wednesday 01/24 Proposed Discharge Date: 01/21/19
--- NOTE | 2019-01-21 12:25 | DS.PCM_ITS ---
Discharge Date and Diagnosis Date of Admission: 01/19/19 Date of Discharge: 01/21/19 - Primary Discharge Diagnosis Active and Suspected Problems (Last Updated 08/11/18 @ 23:05 by Ezequiel Zuniga MD) Obstipation (Acute) Intractable nausea and vomiting due to obstipation - Secondary Discharge Diagnosis Chronic Problems (Last Updated 08/11/18 @ 23:05 by Ezequiel Zuniga MD) Neuroendocrine cancer (Chronic) With widespread metastasis HTN Severe malnutrition Hospital Course and Treatment Imaging Results: 01/21/19 05:00 KUB [Abd Inc Decub and/or Erect] [RAD] Urgent Dr. Wilfredo Qureshi[facility] general surgery Operations: None Procedures: Colonoscopy - with disimpaction with golytely and colonoscope Summary of Care Provided: The patient is a 53 year old M with a hx of neuroendocrine tumor with widespread metastasis who is treated by Dr. Anastacio Booker. He presented to the emergency department complaining of intractable nausea/vomiting with severe abdominal pain. He stated he had not had a bowel movement in 10 days. He also had no appetite and had been losing weight. CT scan of the abdomen showed prominent fecal retention throughout the ascending, transverse and proximal descending colon, the sigmoid was relatively free. Review of labs showed a normal white blood cell count of 8.1 with a unremarkable differential. Hemoglobin was 13.3 and the platelets were 263,000. Sodium was mildly decreased at 134 but the remainder of the BMP was remarkable only for a creatinine of 1.24. He was admitted to the hospital and started on intravenous fluids and given Dulcolax suppository and tap water enema. Dr. Wilfredo Qureshi was consulted to participate in management. Pain medication was ordered. Gastrografin enema was ordered and there was no evidence of obstruction to flow. Patient was then taken for colonoscopy by Dr. Beltran and a disimpaction with GoLYTELY and the colonoscope was undertaken. Postprocedure the patient felt less distended, less painful and had less nausea. He was kept in the hospital overnight and a KUB was obtained following morning and showed a non-obstructive gas pattern. there was still stool in the right colon. He was discharged on a clear liquid diet and will take 1 capful of Miralax with 8 ounces of fluid 4-6 times a day. He will see Dr. Qureshi in the office on Wednesday 01/24. While in the hospital the BP was elevated and amlodipine was increased to 10 mg daily. Mag ox was increased to 800 mg BID to help improve constipation. GENERAL: alert, oriented X 3, Cooperative ORAL: moist mucosa, no mucosal lesions NECK: No JVD, supple, trachea midline LUNGS: CTA, symmetric chest expansion HEART: RRR, Normal S1 and S2, no rub, no gallop ABDOMEN: soft, distended, tender to palpation diffusely but, no guarding....less distended than yesterday. EXTREMITIES: no edema, no cyanosis, no calf tenderness SKIN: No rashes, no breakdown NEUROLOGIC: no focal neurologic deficits PSYCH: appropriate, normal affect, pleasant This note was generated with [employer] dictation software. It may contain incorrect words, spelling, and punctuation that were not noted in checking the note before signing. - Physical Exam Vital Signs Temp Pulse Resp BP Pulse Ox 97.4 F L 83 15 156/93 H 99 01/21/19 09:10 01/21/19 09:10 01/21/19 09:10 01/21/19 09:10 01/21/19 09:10 Oxygen Delivery Method Room Air Weight: 122 lb 12.76 oz Body Mass Index (BMI) 19.2 Intake and Output for Last 24 Hours 01/19/19 01/20/19 01/21/19 23:59 23:59 23:59 Intake Total 3220 / 3220 1129 / 1129 Balance 3220 / 3220 1129 / 1129 Discharge Activity: Return to Normal Activity Call your doctor if you observe: Fever of 101 or Higher, Inability to have a bowel movement, Uncontrolled pain, - - recurrent nausea and vomiting Home Medications: Medications to take at Discharge Dicyclomine HCl [Bentyl] 10 mg PO 4X/DAY PRN PRN 08/11/18 DiphenhydrAMINE [Benadryl] 25 mg PO QHS PRN PRN 08/11/18 Fluticasone 0.05% [Flonase Nasal [place]] 1 spray NASAL PRN PRN 08/11/18 Metoclopramide HCl 10 mg PO Q6H PRN 08/11/18 Naproxen Sodium [Aleve] 440 mg PO BID PRN PRN 08/11/18 Pantoprazole Sodium [Protonix] 20 mg PO DAILY 08/11/18 Sennosides/Docusate Sodium [Senna Plus Tablet] 3 tab PO BID PRN 08/11/18 Oxycodone [Oxyir] 5 mg PO Q6H PRN PRN 11/02/18 Albuterol Inhaler [Ventolin Hfa] 2 puff INHALATION Q4H PRN PRN 11/18/18 HYDROmorphone tablet [Dilaudid] 2 - 4 mg PO Q3H PRN PRN 11/18/18 Melatonin 3 mg PO QHS PRN 11/18/18 Ondansetron [Zofran] 8 mg PO Q8H PRN PRN 11/18/18 Polyethylene Glycol 3350 [Miralax] 17 gm PO DAILY PRN PRN 11/18/18 Methadone HCl 2.5 mg PO BID 01/19/19 Temazepam [Restoril] 7.5 mg PO QHS 01/19/19 Amlodipine [Norvasc] 10 mg PO DAILY #30 tablet 01/21/19 Magnesium Oxide [Mag-Ox 400] 800 mg PO BID #120 tablet 01/21/19 Following Prescrptions Were Given to Patient: Amlodipine [Norvasc] 10 mg PO DAILY #30 tablet Magnesium Oxide [Mag-Ox 400] 800 mg PO BID #120 tablet Primary Care Physician: Samy Lewis MD [Primary Care Provider] - Please follow up with your Primary Care Physician in: 1 week for a BP check Please Follow Up With: Wilfredo Qureshi MD When: Wednesday 01/24 Disposition: Home Minutes spent on discharge:: 30 Patient Condition:: Stable Medical Necessity - Tobacco Use Smoking Status: Never smoker Tobacco Use: Non-smoker Meaningful Use Info Meaningful Use Diagnoses (Choose all that apply): None applicable Code Visit Inpatient E&M: 05523 Disch Hosp
[2019-01-21 12:58] VITALS: BP 135/89; PULSE 87; RESP 16; TEMP 36.6; O2SAT 98
== END 2019-01-21 13:33 | disposition home or self-care (01) ==
LOC: ED 16:45 → MS3 19:24
PROVIDERS: Surgery; Admitting Provider Internal Medicine; Emergency Provider Emergency Medicine; Family Provider Family Medicine; PCP Family Medicine; Visit Provider Internal Medicine
PROC: 0DJD8ZZ Inspection of Lower Intestinal Tract, Via Natural or Artificial Opening Endoscopic (ICD-10-PCS; CPT 45378; principal; 2019-01-20 13:25)
DX: K59.00 Constipation, unspecified (principal); E43 Unspecified severe protein-calorie malnutrition; Z68.1 Body mass index [BMI] 19.9 or less, adult; I10 Essential (primary) hypertension; C7A.8 Other malignant neuroendocrine tumors; C79.51 Secondary malignant neoplasm of bone; C78.7 Secondary malignant neoplasm of liver and intrahepatic bile duct; E87.1 Hypo-osmolality and hyponatremia; Z79.899 Other long term (current) drug therapy
CPT/HCPCS: 45378; 36415; 74019; 74176; 74283; 80048; 80053; 83690; 85025; 96361; 96372; 96374; 96375; 96376; 97802; 99218; 99282; J7030; J7040; A4216; G0378; J2405

== ENCOUNTER 2019-01-25 09:01 | Day surgery (SDC) | payer OTHER, SELFPAY ==
[2019-01-20 12:01] VITALS: BMI 19.2
[2019-01-25 09:22] VITALS: BP 130/86; PULSE 79; RESP 16; TEMP 36.6; O2SAT 98; BMI 19.1
--- NOTE | 2019-01-25 15:14 | OP.ENDO_ITS ---
01/25/2019 Samy Lewis [address] [place] [address] Re : Colonoscopy procedure for Benji Patino Dear Dr. Lewis This procedure was performed on Friday, January 25, 2019. My impressions and recommendations are as follows: Impressions : - Stool in the transverse colon, at the hepatic flexure and in the ascending colon. - No specimens collected. Recommendations : - Discharge patient to home. - Clear liquid diet. - Miralax 1 capful (17 grams) in 8 ounces of water PO QID. - Return to my office in 4 weeks. - Repeat colonoscopy PRN. - Continue present medications. My findings are described in the full procedure note, which is enclosed. If I can be of further assistance, please feel free to contact me at Doctor phone number(s): , Work: . Sincerely, Wilfredo Qureshi MD 01/25/2019 3:14:20 PM This report has been signed electronically.
[2019-01-25 15:16] VITALS: BP 117/86; BP 130/86; PULSE 70; RESP 16; TEMP 35.9; O2SAT 100
[2019-01-25 15:21] VITALS: BP 120/87; BP 130/86; PULSE 69; RESP 16; O2SAT 100
[2019-01-25 15:26] VITALS: BP 130/86; BP 132/94; PULSE 68; RESP 16; O2SAT 100
[2019-01-25 15:37] VITALS: BP 130/86; BP 139/93; PULSE 69; RESP 16; TEMP 36.1; O2SAT 100
[2019-01-25 16:29] VITALS: BP 130/86
== END 2019-01-25 16:30 | disposition home or self-care (01) ==
LOC: EN 09:02 → AC 09:03
PROVIDERS: Family Provider Family Medicine; PCP Family Medicine; Referring Provider Surgery; Visit Provider Surgery
PROC: 0DJD8ZZ Inspection of Lower Intestinal Tract, Via Natural or Artificial Opening Endoscopic (ICD-10-PCS; CPT 45378; principal; 2019-01-25 09:55)
DX: K56.41 Fecal impaction (principal); J45.909 Unspecified asthma, uncomplicated; Z79.891 Long term (current) use of opiate analgesic; Z79.899 Other long term (current) drug therapy
CPT/HCPCS: 45378; J7120

== ENCOUNTER 2019-02-25 08:33 | Observation (INO) | payer OTHER, SELFPAY ==
[2019-02-25] VITALS (7 sets, daily range): BP systolic 146–162; BP diastolic 87–108; PULSE 90–105; RESP 16–20; TEMP 36–37.2; O2SAT 94–100; BMI 17.6; BMI 18.2
--- NOTE | 2019-02-25 08:44 | CT_ITS ---
STUDY: CT ABDOMEN AND PELVIS WITH CONTRAST REASON FOR EXAM: Male, 53 years old. Abdominal pain. Recent fecal impaction. Neuroendocrine carcinoma with metastasis to the liver, bone and lung. RADIATION DOSAGE (If Supplied By Facility): CTDIvol = ( 21.36 ) mGy, DLP = ( 395.04 ) mGycm TECHNIQUE: Transaxial images were obtained from the dome of the diaphragm to the symphysis pubis with oral contrast. 100ML IV Isovue 300 was administered. Sagittal and coronal images were reconstructed. Individualized dose optimization techniques were used for this CT. COMPARISON: 01/19/2019. FINDINGS: The visualized lung bases are unremarkable. The visualized portions of the heart are within normal limits. Hepatomegaly with innumerable hypodense metastatic mass lesions. Nodularity of the liver surface is also suggestive of cirrhosis. Normal gallbladder and extrahepatic biliary system. Normal spleen. Pancreas: Small hypodense mass in the posterior parenchyma of the pancreatic tail (series 2, image 29). This measures approximately 5 mm. Normal bilateral adrenal glands. Small hypodense cyst in the right kidney. No stones or hydronephrosis. Normal left kidney. Normal visualized stomach. Normal small intestine. Fecal impaction in the rectum. The appendix is visualized and appears normal. Normal abdominal aorta. Normal inferior vena cava. Normal retroperitoneum. Normal urinary bladder. Normal abdominal wall. Multiple sclerotic metastatic mass lesions throughout the osseous elements. CT/Abdomen/Pelvis W IV Cont ONLY IMPRESSION: 1. Hepatomegaly with innumerable metastatic hypodense mass lesions and hepatic cirrhosis. 2. Small 5 mm hypodense mass in the posterior parenchyma of the pancreatic tail (series 2, image 29). I am uncertain if this is new since the prior CT was done without contrast. 3. Small hypodense cyst in the right kidney. I'm uncertain if this is new since the prior CT was not without contrast. 4. Diffuse sclerotic metastatic bone disease. They were present previously. 5. Fecal impaction in the rectum. Electronically Signed: Milo Friend MD at 10:27 EDT , Service support ,
--- NOTE | 2019-02-25 08:47 | ED.DCSUM_ITS ---
- ER Visit Summary Date of Service: 02/25/19 Chief Complaint: Abdominal pain, nausea and vomiting History of Present Illness: The patient is a 53 M who presents with abdominal pain, nausea and vomiting. This started 2 days ago. He has sharp diffuse abdominal pain. Nothing makes it better or worse. He denies diarrhea. He has a history of constipation but has had regular bowel movements recently. No urinary symptoms. 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 No history of abdominal surgeries in the past. His last chemotherapy was 3 weeks ago. Physical Examination: Vital signs reviewed. HEENT exam unremarkable. Heart is tachycardic and regular rhythm without murmurs. Lungs are clear to auscultation. Abdomen is soft with diffuse tenderness. He does have voluntary guarding. There is no distention. Extremities reveal no edema. Skin exam normal. Neurologic exam normal. Test Results: Laboratory studies show a hemoglobin of 12.1, platelet 148, sodium 135 and glucose 133. CAT scan with IV contrast shows hepatomegaly with liver metastases consistent with his metastatic disease. He does have metastatic bone disease. There is also a fecal impaction. Emergency Department Course and Treatment: The patient's pain is mostly in the upper part of his abdomen. I do not feel that the fecal impaction is causing his significant amount of pain. I gave him Dilaudid, fentanyl and morphine and he is still having a lot of pain. I feel the patient should be admitted for pain control. I discussed with the hospitalist for admission. Treatment Plan: [] Disposition: Admit to observation Impression: Intractable abdominal pain, hepatic metastases from neuroendocrine tumor This note was generated with [employer] dictation software. It may contain incorrect words, spelling, and punctuation that were not noted in review of the chart prior to signing ED Disposition - Plan for ED Patient: Referrals: Samy Lewis MD [Primary Care Provider] -
[2019-02-25] MEDS: 0.9% Normal Saline 1,000 ML 1000 ML IV (08:49)
[2019-02-25] MEDS: HYDROmorphone 1 MG/ML Syringe IV ×6 (08:52→23:30)
[2019-02-25] MEDS: Ondansetron 4 MG/2 ML Vial IV (08:52)
[2019-02-25 09:02] LABS: Absolute Lymphocyte Count 1.52 X10^3/ul (0.83-4.51); Absolute Neutrophil Count 3.7 X10^3/uL (2.0-7.7); Basophil# 0.01 X10^3/uL; Basophil% 0.2 % (0-1); Hematocrit 35.3 % (40-54); Hemoglobin 12.1 g/dl (13.0-16.5); Lymphocyte # 1.52 X10^3/ul (4.0); Lymphocyte % 24.9 % (19-41); Mean Corp Hgb Conc 34.3 g/gl (32-36); Mean Corpuscular Hgb 31.3 pg (27.0-32.0); Mean Corpuscular Volume 91.2 fL (80-94); Mean Platelet Vol. 9.8 fl (6.2-12.0); Monocyte# 0.91 X10^3/uL; Monocyte% 14.9 % (0-10); Neutrophil # 3.65 X10^3/uL (2.7-7.7); Neutrophil % 59.8 % (47-70); POSITIVE COUNT NO; POSITIVE DIFFERENTIAL NO; POSITIVE MORPHOLOGY NO; Platelet Count 148 K/mm3 (150-450); RBC Distribution Width CV 14.8 % (11.6-14.6); RBC Distribution Width SD 47.2 fl (35.1-43.9); Red Blood Count 3.87 M/mm3 (4.6-6.2); White Blood Count 6.1 K/mm3 (4.4-11.0)
[2019-02-25 09:17] LABS: AST(SGOT) 33 U/L (15-37); Alanine Aminotransfer ALT/SGPT 26 U/L (16-61); Albumin, Serum 3.3 g/dL (3.2-5.0); Alkaline Phosphatase 223 U/L (45-117); Anion Gap 6 (5-15); BUN 16 mg/dL (7-18); BUN/Creat Ratio 15.4 RATIO (10-20); Bilirubin, Direct 0.21 mg/dL (0.00-0.30); Calcium,Total 8.7 mg/dL (8.5-10.1); Chloride 101 mmol/L (98-107); Creatinine, Serum 1.04 mg/dL (0.70-1.30); EST Glomerular Filtration Rate 80 mL/min (>60); Est Glom Filt Rate - Afr Amer 97 mL/min (>60); Estimated Creatinine Clearance 60.92 ml/min; Globulin 3.8 g/dL (2.2-4.2); Glucose 133 mg/dL (74-106); Lipase 157 U/L (73-393); Potassium 4.2 mmol/L (3.5-5.1); Protein, Total 7.1 g/dL (6.4-8.2); Sodium Level 135 mmol/L (136-145)
[2019-02-25] MEDS: fentaNYL 100 MCG/2 ML Ampul IV (09:20)
[2019-02-25] MEDS: morphine 8 MG/ML Syringe IV (10:12)
[2019-02-25 10:58] LABS: Mucous, Urine 0 SEEN /hpf (<or=2+); Red Blood Cells-Urine 0 SEEN /hpf (0-5); Squamous Epithelial Cells - UA 0 SEEN /hpf (0-5); White Blood Cells 0 SEEN /hpf (0-5)
[2019-02-25 11:01] LABS: Color, Urine Yellow (Yellow); Glucose, Dipstick Normal (Normal); Ketone-Dipstick Negative (Negative); Leukocyte Esterase-Dipstick Negative /ul (Negative); Nitrite-Dipstick Negative (Negative); Occult Blood-Urine Negative /ul (Negative); Protein-Dipstick Negative (Negative); Urine Bilirubin Dipstick Negative (Negative); Urine Clarity Clear (Clear); Urine Urobilinogen Normal (Normal)
--- NOTE | 2019-02-25 11:02 | NURSING ---
DR GRIFFITH FOR DR MARQUEZ
--- NOTE | 2019-02-25 11:07 | NURSING ---
MED SURG INTRACTABLE ABD PAIN, LIVER METS TERELETSKY
[2019-02-25 11:08] LABS: Bacteria RARE /hpf (None Seen)
[2019-02-25] MEDS: 0.9% Normal Saline 1,000 ML 100 ML IV ×2 (13:45→23:30)
[2019-02-25] MEDS: Pantoprazole Sodium 20 MG Tablet PO (14:16)
[2019-02-25] MEDS: amLODIPine 10 MG Tablet PO (14:16)
--- NOTE | 2019-02-25 17:37 | PCM.HP.STD ---
Problem List (1) Abdominal pain Status: Acute Qualifiers: Abdominal location: generalized Qualified Code(s): R10.84 - Generalized abdominal pain History of Present Illness Date of Admission: 02/25/19 Chief Complaint: Abdominal pain The patient is a 53 year old M who was seen in the emergency room at [facility] with chief complaint of generalized abdominal pain x48 hours. Patient states that he had an episode of vomiting at home yesterday. 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 Work-up in the emergency room included a CT of the abdomen which showed diffuse metastatic disease throughout the liver and of the bones as well as a fecal impaction, labs were drawn which were remarkable for hemoglobin of 12.1, alkaline phosphatase was elevated to 223, lipase was normal. Patient was given several IV narcotics in the emergency room without relief of his abdominal pain, he will be placed in observation status on MedSurg 3, he will receive laxatives and possibly an oral retention enema and receive additional IV pain medications. I talked briefly with his oncologist by phone who feels that it is probable he will need to stop the patient's chemotherapy due to the patient's lack of response to his current chemotherapy treatment. Past Medical History Past Medical History (Chronic Problems): Chronic Problems (Last Updated 08/11/18 @ 23:05 by Ezequiel Zuniga MD) Neuroendocrine cancer (Chronic) With wide metastasis Medical History: Medical History (Last Updated 08/11/18 @ 23:05 by Ezequiel Zuniga MD) Neuroendocrine cancer C7A.8 Allergies DUST Allergy (Uncoded 02/25/19 08:34) Other Home Medications: Ambulatory Orders Medication Instructions Recorded Dicyclomine HCl [Bentyl] 10 mg PO 4X/DAY PRN PRN 08/11/18 DiphenhydrAMINE [Benadryl] 25 mg PO QHS PRN PRN 08/11/18 Fluticasone 0.05% [Flonase Nasal 1 spray NASAL PRN PRN 08/11/18 [place]] Pantoprazole Sodium [Protonix] 20 mg PO DAILY 08/11/18 Sennosides/Docusate Sodium [Senna 3 tab PO BID PRN 08/11/18 Plus Tablet] Oxycodone [Oxyir] 5 - 10 mg PO Q4H PRN 11/02/18 Albuterol Inhaler [Ventolin Hfa] 2 puff INHALATION Q4H PRN PRN 11/18/18 HYDROmorphone tablet [Dilaudid] 2 - 4 mg PO Q3H PRN PRN 11/18/18 Ondansetron [Zofran] 8 mg PO Q8H PRN PRN 11/18/18 Polyethylene Glycol 3350 [Miralax] 17 gm PO DAILY PRN PRN 11/18/18 Methadone HCl 2.5 mg PO TID 01/19/19 Temazepam [Restoril] 15 mg PO QHS 01/19/19 Amlodipine [Norvasc] 10 mg PO DAILY #30 tablet 01/21/19 Bisacodyl [Dulcolax] 20 mg PO QHS 02/25/19 Haloperidol 0.5 mg PO Q4H PRN 02/25/19 Lorazepam [Ativan] 0.5 mg PO Q4H PRN 02/25/19 Multivitamin [Daily Multiple 1 each PO DAILY 02/25/19 Vitamin] Naloxone HCl [Narcan] 4 mg NS DAILY PRN 02/25/19 Prednisone 10 mg PO DAILY 02/25/19 Sertraline HCl 50 mg PO DAILY 02/25/19 Surgical History: - - fusion of wrist; silicon buckle left eye Psychiatric History: No pertinent psych hx Lives: Spouse/ Significant Other Smoking Status: Never smoker Tobacco Use: Non-smoker Alcohol: None Drugs: None - *Family History Maternal History Items: Cancer Paternal History Items: Heart Disease Review of Systems Constitutional: Reports: Fatigue. Denies: Anorexia, Chills, Fever, Night Sweats, Malaise, Weakness, Weight Change Eyes: Denies: Cataracts, Conjunctivae Inflammation, Double vision, Drainage HEENT: Denies: Dysphasia, Ear Pain, Eye Pain, Hearing Changes, Nasal bleeding, Nasal Congestion, Post Nasal Drip Cardiovascular: Denies: Chest Pain, Claudication, Chest Pressure, Chest Tightness, Edema, Heaviness, Palpitations Respiratory: Denies: Cough, Hemoptysis, Pleuritic Pain, Shortness of Breath, Shortness of breath at rest, Shortness of breath upon exertion Gastrointestinal: Reports: Abdominal Pain, Constipation, Nausea, Vomiting. Denies: Diarrhea, Hematemesis, Hematochezia, Melena Genitourinary: Denies: Dysuria, Frequency, Hematuria, Hesitancy, Nocturia, Retention, Urgency Musculoskeletal: Denies: Back Pain, Foot Pain, Hand Pain, Joint Pain, Joint stiffness, Joint swelling, Joint Tenderness, Leg Pain Skin: Denies: Dryness, Jaundice, Pruritis, Rash Neurological: Denies: Blurred vision, Double vision, Slurred speech, Difficulty swallowing, Focal weakness, Headaches, Incoordination, Numbness, Tingling Psychiatric: Denies: Anxiety, Depression, Homicidal Ideations, Suicidal Ideations Endocrine: Denies: Change in Body Habitus, Heat/ Cold Intolerance, Polydipsia, Polyuria Hematologic/ Lymphatic: Denies: Adenopathy, Anemia, Easy Bruising, Easy Bleeding, Petechiae, Purpura VTE Information - Inpt Only VTE Present on Admission: No VTE Mechan Device Prophylaxis: None VTE Pharm Prophylaxis ordered?: Yes Patient Problems: Active and Suspected Problems (Last Updated 08/11/18 @ 23:05 by Ezequiel Zuniga MD) Abdominal pain (Acute) - Physical Exam General: Alert, Oriented x3, Cooperative, No apparent distress, - - Patient appears frail and cachectic HEENT: Atraumatic, PERRLA, EOMI, Normocephalic Oral: Moist Mucosa Neck: Supple, No JVD, Negative Carotid Bruits, Trachea Midline, Thyroid Normal Size and Texture Lungs: Clear to auscultation, Normal air movement, No rhonchi, No wheeze, No rales Cardiovascular: Regular rate, Regular Rhythm, Normal S1, Normal S2, No murmurs, No Ectopic Activity, PMI Normal, No rub noted, No Gallop Abdomen: Bowel Sounds Present, Soft, Non Tender, Non-Distended, Hypoactive Bowel Sounds, No hernias noted Extremities: No clubbing, No cyanosis, No edema, Capillary Refill Less than 3 Seconds Skin: No rashes, No breakdown Musculoskeletal: No Tenderness to Palpation of Joints or Extremities Neurological: Cranial nerves II-XII grossly intact, Neuro grossly intact, Sensory exam intact to light touch and pain, Coordination normal Psych/Mental Status: Normal Affect, Appropriate, Alert and oriented to time, place, person, mood and affect Vital Signs Temp Pulse Resp BP Pulse Ox 97.5 F L 95 20 H 162/89 H 100 02/25/19 12:20 02/25/19 12:20 02/25/19 12:20 02/25/19 12:20 02/25/19 12:20 Oxygen Delivery Method Room Air Weight: 53.6 kg Body Mass Index (BMI) 18.2 Laboratory Tests Past 24 Hrs 02/25/19 02/25/19 02/25/19 08:47 08:47 10:50 WBC 6.1 RBC 3.87 L Hgb 12.1 L Hct 35.3 L MCV 91.2 MCH 31.3 MCHC 34.3 RDW 14.8 H RDW Differential 47.2 H Plt Count 148 L MPV 9.8 Immature Gran % (Auto) 0.200 Neut % (Auto) 59.8 Lymph % (Auto) 24.9 [place] % (Auto) 14.9 H Eos % (Auto) 0.0 Baso % (Auto) 0.2 Absolute Neuts (auto) 3.7 Absolute Lymphs (auto) 1.52 Total Counted Not Reportable Sodium 135 L Potassium 4.2 Chloride 101 Carbon Dioxide 28.0 Anion Gap 6 BUN 16 Creatinine 1.04 Estim Creat Clear Calc 60.92 Est GFR (MDRD) Af Amer 97 Est GFR (MDRD) Non-Af 80 BUN/Creatinine Ratio 15.4 Glucose 133 H Calcium 8.7 Total Bilirubin 0.40 Direct Bilirubin 0.21 AST 33 ALT 26 Alkaline Phosphatase 223 H Total Protein 7.1 Albumin 3.3 Globulin 3.8 Lipase 157 Urine Color Yellow Urine Clarity Clear Urine pH 7.0 Ur Specific [place] 1.010 Urine Protein Negative Urine Glucose (UA) Normal Urine Ketones Negative Urine Occult Blood Negative Urine Nitrite Negative Urine Bilirubin Negative Urine Urobilinogen Normal Ur Leukocyte Esterase Negative Urine RBC 0 SEEN Urine WBC 0 SEEN Ur Squamous Epith Cells 0 SEEN Urine Bacteria RARE Urine Mucus 0 SEEN Assessment/Plan All Active Problems (Last Updated 08/11/18 @ 23:05 by Ezequiel Zuniga MD) Acute encephalopathy (Resolved) Hyponatremia (Acute) Intractable nausea and vomiting (Acute) Obstipation (Acute) Abdominal pain (Acute) #1 abdominal pain-probably secondary to combination of metastatic neuroendocrine cancer and obstipation-patient will be placed in observation status on MedSurg 3, he will receive IV narcotics, he will be placed on laxatives and receive an oral retention enema, it may be necessary to manually disimpact the patient. #2 metastatic neuroendocrine cancer-probably gastric in origin-prognosis poor #3 severe malnutrition secondary to #2 #4 nausea and vomiting secondary to #2-patient will be given IV fluids and antiemetics #5 hyponatremia-mild #6 hypertension Code Visit OBSV E&M: 27466 Initial observation care L3
[2019-02-25] MEDS: Magnesium Citrate 300 ML PO (17:47)
--- NOTE | 2019-02-25 18:07 | NURSING ---
1800 pt drinking MAg citrate, emesis noted, up to bathroom to urinate Jacquie Cervantes RN
[2019-02-25] MEDS: Mineral Oil 1 BOTTLE ENEMA 1 ML RECTAL (18:12)
--- NOTE | 2019-02-25 18:27 | NURSING ---
182 pt given Mineral oil emema, no results. new order given per Dr Jacquie Cervantes RN
[2019-02-25] MEDS: LORazepam 0.5 MG Tablet PO (18:42)
[2019-02-25] MEDS: 0.9% NaCl Peripheral Flush Adult/Peds IV (20:34)
[2019-02-25] MEDS: Temazepam 15 MG Capsule PO (21:58)
[2019-02-26] MEDS: HYDROmorphone 1 MG/ML Syringe IV ×6 (02:35→20:06)
[2019-02-26 05:42] VITALS: BP 153/93; PULSE 100; RESP 16; TEMP 36.6; O2SAT 97
[2019-02-26] MEDS: 0.9% Normal Saline 1,000 ML 100 ML IV ×2 (08:49→18:18)
[2019-02-26] MEDS: 0.9% NaCl Peripheral Flush Adult/Peds IV ×4 (08:49→17:09)
[2019-02-26] MEDS: predniSONE 10 MG Tablet PO (08:54)
[2019-02-26 10:27] VITALS: BP 154/105; PULSE 110; RESP 18; TEMP 36.7; O2SAT 99
[2019-02-26 10:30] VITALS: PULSE 108
[2019-02-26] MEDS: LORazepam 2 MG/ML Syringe 1 MG IV ×2 (12:03→12:05)
[2019-02-26] MEDS: Lidocaine Jelly 2% 20 ML Syringe (URO-JET) 20 APPLIC TOPICAL (12:07)
[2019-02-26] MEDS: Enoxaparin 40 MG/0.4 ML Syringe SC (15:04)
[2019-02-26] MEDS: Lubiprostone 24 MCG Capsule PO (15:04)
[2019-02-26] MEDS: amLODIPine 10 MG Tablet PO (15:04)
[2019-02-26] MEDS: Pantoprazole Sodium 20 MG Tablet PO (15:04)
[2019-02-26] MEDS: Sertraline 50 MG Tablet PO (15:04)
[2019-02-26 15:07] VITALS: BP 162/108; PULSE 110; RESP 16; TEMP 37.7; O2SAT 97
[2019-02-26 15:17] VITALS: PULSE 112
--- NOTE | 2019-02-26 18:09 | PCM.PROGNOTE ---
Patient Problems: Active and Suspected Problems (Last Updated 08/11/18 @ 23:05 by Ezequiel Zuniga MD) Abdominal pain (Acute) Subjective: Patient was seen and examined today, he still having abdominal pain, abdomen remains nondistended however. Patient was only able to drink 2 to 3 ounces of his mag citrate, this is despite my urging him yesterday that he should try to finish the whole bottle. I did a rectal examination on the patient today because it was reported that he had no output from his mineral oil enema, on my rectal exam, there is absolutely no stool in the rectum. I talked briefly with his today outside of his room and told her that oncology would need to reevaluate him based on the CAT scan that was done yesterday to see what the next step would be in his treatment. I put a phone call in the Dr. Booker this afternoon, he states he will come in tomorrow and have a talk with the patient and his , he will more than likely recommend hospice for the patient. Patient's states that she had a bad experience with palliative care, she states that palliative care suggested that the patient be transition into hospice and patient's states that she did not feel this was an appropriate conversation to have-she stated that that conversation should come from his physician. - Physical Exam General: Alert, Oriented x3, Cooperative, No apparent distress, Well developed, - - Patient appears cachectic and unwell HEENT: Atraumatic, PERRLA, EOMI, Normocephalic Oral: Moist Mucosa Neck: Supple, No JVD, Trachea Midline, Thyroid Normal Size and Texture Lungs: Clear to auscultation, Normal air movement, No rhonchi, No wheeze, No rales Cardiovascular: Regular rate, Regular Rhythm, Normal S1, Normal S2, No murmurs, No Ectopic Activity, PMI Normal Abdomen: Bowel Sounds Present, Soft, Non Tender, Non-Distended Extremities: No edema, Capillary Refill Less than 3 Seconds Skin: No rashes, No breakdown Musculoskeletal: No Tenderness to Palpation of Joints or Extremities Neurological: Cranial nerves II-XII grossly intact, Neuro grossly intact, Sensory exam intact to light touch and pain, Coordination normal Psych/Mental Status: Appropriate, Flat Affect Vital Signs Temp Pulse Resp BP Pulse Ox 99.9 F H 112 H 16 162/108 H 97 02/26/19 15:07 02/26/19 15:17 02/26/19 15:07 02/26/19 15:07 02/26/19 15:07 Oxygen Delivery Method Room Air Weight: 53.6 kg Body Mass Index (BMI) 18.2 Intake and Output for Last 24 Hours 02/24/19 02/25/19 02/26/19 23:59 23:59 23:59 Intake Total 1154 / 1154 1678 / 1678 Balance 1154 / 1154 1678 / 1678 Medical Necessity - Tobacco Use Smoking Status: Never smoker Tobacco Use: Non-smoker Assessment/Plan All Active Problems (Last Updated 08/11/18 @ 23:05 by Ezequiel Zuniga MD) Acute encephalopathy (Resolved) Hyponatremia (Acute) Intractable nausea and vomiting (Acute) Obstipation (Acute) Abdominal pain (Acute) #1 abdominal pain-probably secondary to combination of metastatic neuroendocrine cancer patient will remain in observation status, oncology is going to come in and talk with the patient and his tomorrow-more than likely it will be recommended that he go into the hospice program. 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 #5 hyponatremia-mild #6 hypertension Code Visit OBSV E&M: 67267 Subsequent observation care L3
[2019-02-26 19:54] VITALS: BP 156/87; PULSE 103; RESP 16; TEMP 36.5; O2SAT 98
[2019-02-26] MEDS: Temazepam 15 MG Capsule PO (22:08)
[2019-02-27] VITALS (10 sets, daily range): BP systolic 152–160; BP diastolic 97–108; PULSE 102–118; RESP 8–16; TEMP 36.4–36.7; O2SAT 97–100
[2019-02-27] MEDS: HYDROmorphone 1 MG/ML Syringe IV ×6 (00:52→17:19)
[2019-02-27 00:57] LABS: Bacteria 0 SEEN /hpf (None Seen); Mucous, Urine 0 SEEN /hpf (<or=2+); Squamous Epithelial Cells - UA 0 SEEN /hpf (0-5); White Blood Cells 0 SEEN /hpf (0-5)
[2019-02-27 00:59] LABS: Color, Urine Yellow (Yellow); Glucose, Dipstick 50 mg/dl (Normal); Ketone-Dipstick 50 mg/dl (Negative); Leukocyte Esterase-Dipstick Negative /ul (Negative); Nitrite-Dipstick Negative (Negative); Occult Blood-Urine 250 /ul (Negative); Protein-Dipstick 30 mg/dl (Negative); Urine Bilirubin Dipstick Negative (Negative); Urine Clarity Sl. Cloudy (Clear); Urine Urobilinogen Normal (Normal)
[2019-02-27 01:06] LABS: Red Blood Cells-Urine 10-25 SEEN /hpf (0-5)
[2019-02-27 01:14] LABS: Absolute Lymphocyte Count 1.23 X10^3/ul (0.83-4.51); Absolute Neutrophil Count 7.1 X10^3/uL (2.0-7.7); Basophil# 0.01 X10^3/uL; Basophil% 0.1 % (0-1); Hematocrit 36.8 % (40-54); Hemoglobin 12.8 g/dl (13.0-16.5); Lymphocyte # 1.23 X10^3/ul (4.0); Lymphocyte % 12.5 % (19-41); Mean Corp Hgb Conc 34.8 g/gl (32-36); Mean Corpuscular Hgb 31.3 pg (27.0-32.0); Mean Platelet Vol. 9.4 fl (6.2-12.0); Monocyte# 1.47 X10^3/uL; Monocyte% 14.9 % (0-10); Neutrophil # 7.14 X10^3/uL (2.7-7.7); Neutrophil % 72.3 % (47-70); Platelet Count 209 K/mm3 (150-450); RBC Distribution Width CV 15.2 % (11.6-14.6); RBC Distribution Width SD 48.4 fl (35.1-43.9); Red Blood Count 4.09 M/mm3 (4.6-6.2); White Blood Count 9.9 K/mm3 (4.4-11.0)
[2019-02-27 01:18] LABS: BUN 10 mg/dL (7-18); Creatinine, Serum 0.72 mg/dL (0.70-1.30); Estimated Creatinine Clearance 92.02 ml/min; Glucose 119 mg/dL (74-106)
[2019-02-27 01:19] LABS: Anion Gap 9 (5-15); BUN/Creat Ratio 13.8 RATIO (10-20); Calcium,Total 8.1 mg/dL (8.5-10.1); Chloride 90 mmol/L (98-107); EST Glomerular Filtration Rate 121 mL/min (>60); Est Glom Filt Rate - Afr Amer 147 mL/min (>60); POSITIVE COUNT NO; POSITIVE DIFFERENTIAL NO; POSITIVE MORPHOLOGY NO; Potassium 4.1 mmol/L (3.5-5.1); Sodium Level 124 mmol/L (136-145)
--- NOTE | 2019-02-27 01:33 | PCM.PN.BLA ---
Progress Note Patient with metastatic neuroendocrine cancer. Oncology and family will clarify goals of care Nurse reports that patient is acting more confused than previous day. Patient is going to bathroom multiple times and at times with no urinary output. CBC was ordered it returned unremarkable. BMP returned with sodium of 124. BMP was 135 on 02/25/2019. Urinalysis is now positive for protein, glucose, ketones, and occult blood. Patient is currently on NSS at 100ml/hr. Will escalate to NSS 200ml/hr for 10 hours. Repeat BMP at 0900.
[2019-02-27] MEDS: 0.9% Normal Saline 1,000 ML 200 ML IV ×2 (01:44→08:33)
[2019-02-27] MEDS: LORazepam 0.5 MG Tablet PO (04:14)
--- NOTE | 2019-02-27 06:14 | EKG12_ITS ---
Test Reason : ARRYTHMIA Blood Pressure : / mmHG Vent. Rate : 111 BPM Atrial Rate : 111 BPM P-R Int : 162 ms QRS Dur : 090 ms QT Int : 354 ms P-R-T Axes : 060 042 036 degrees QTc Int : 481 ms Sinus tachycardia Otherwise normal ECG No previous ECGs available Confirmed by VANGIE PHAM ([id number]), tape editor TREMAYNE LOZADA ([id number]) on 03/02/2019 11:02:05 AM Referred By: Samy Wheeler Confirmed By:VANGIE PHAM
[2019-02-27] MEDS: predniSONE 10 MG Tablet PO (08:33)
[2019-02-27] MEDS: Lubiprostone 24 MCG Capsule PO (08:34)
[2019-02-27] MEDS: Enoxaparin 40 MG/0.4 ML Syringe SC (08:34)
[2019-02-27] MEDS: Sertraline 50 MG Tablet PO (08:34)
[2019-02-27] MEDS: Pantoprazole Sodium 20 MG Tablet PO (08:38)
[2019-02-27] MEDS: amLODIPine 10 MG Tablet PO (08:38)
--- NOTE | 2019-02-27 08:48 | PCM.PN.HOSP ---
Patient Problems: Active and Suspected Problems (Last Updated 08/11/18 @ 23:05 by Ezequiel Zuniga MD) Abdominal pain (Acute) Subjective: Patient is a 53-year-old gentleman with history of metastatic neuroendocrine carcinoma who presented with abdominal pain hospital course complicated by hyponatremia patient started on IV fluids with monitoring of electrolyte Objective: GENERAL: Appears cachectic HEENT: Atraumatic; EYES; Anicteric, NECK; supple, normal thyroid, RESPIRATORY: Diminished to auscultation bilaterally, CARDIOVASCULAR: Regular S1 S2, GI: soft, non-tender, normoactive bowel sounds, : No Renal angle tenderness; EXTREMITIES: No edema, no clubbing, no cyanosis. NEURO: Awake; no lateralizing signs. SKIN: No Rash PSYCH; significant flat affect Vitals/I&O's: Vital Signs Temp Pulse Resp BP Pulse Ox 97.6 F L 108 H 16 152/97 H 97 02/27/19 08:28 02/27/19 08:28 02/27/19 08:28 02/27/19 08:28 02/27/19 08:28 Oxygen Delivery Method Room Air Weight: 53.6 kg Body Mass Index (BMI) 18.2 Intake and Output for Last 24 Hours 02/25/19 02/26/19 02/27/19 23:59 23:59 23:59 Intake Total 1154 / 1154 2318 / 2318 1445 / 1445 Output Total 1850 / 1850 Balance 1154 / 1154 2318 / 2318 -405 / -405 Laboratory Results 02/27/19 00:50: WBC 9.9, RBC 4.09 L, Hgb 12.8 L, Hct 36.8 L, MCV 90.0, MCH 31.3, MCHC 34.8, RDW 15.2 H, RDW Differential 48.4 H, Plt Count 209, MPV 9.4, Immature Gran % (Auto) 0.200, Neut % (Auto) 72.3 H, Lymph % (Auto) 12.5 L, [place] % (Auto) 14.9 H, Eos % (Auto) 0.0, Baso % (Auto) 0.1, Absolute Neuts (auto) 7.1, Absolute Lymphs (auto) 1.23, Total Counted Not Reportable 02/27/19 00:50: Sodium 124 L, Potassium 4.1, Chloride 90 L, Carbon Dioxide 25.0, Anion Gap 9, BUN 10, Creatinine 0.72, Estim Creat Clear Calc 92.02, Est GFR (MDRD) Af Amer 147, Est GFR (MDRD) Non-Af 121, BUN/Creatinine Ratio 13.8, Glucose 119 H, Calcium 8.1 L 02/27/19 00:50: Urine Color Yellow, Urine Clarity Sl. Cloud[place], Urine pH 7.0, Ur Specific [place] 1.010, Urine Protein 30 H, Urine Glucose (UA) 50 H, Urine Ketones 50 H, Urine Occult Blood 250 H, Urine Nitrite Negative, Urine Bilirubin Negative, Urine Urobilinogen Normal, Ur Leukocyte Esterase Negative, Urine RBC 10-25 SEEN, Urine WBC 0 SEEN, Ur Squamous Epith Cells 0 SEEN, Urine Bacteria 0 SEEN, Urine Mucus 0 SEEN 02/27/19 08:30: Sodium Pending, Potassium Pending, Chloride Pending, Carbon Dioxide Pending, Anion Gap Pending, BUN Pending, Creatinine Pending, Est GFR (MDRD) Af Amer Pending, Est GFR (MDRD) Non-Af Pending, BUN/Creatinine Ratio Pending, Glucose Pending, Calcium Pending Current Medications Amlodipine Besylate (Norvasc) 10 mg PO DAILY [facility] Last Admin: 02/27/19 08:38 Dose: 10 mg Enoxaparin Sodium (Lovenox) 40 mg SC DAILY@1000 BISI Last Admin: 02/27/19 08:34 Dose: 40 mg Hydromorphone HCl (Dilaudid Inj) 1 - 2 mg IV Q3H PRN PRN PRN Reason: Severe pain (7-10/10) Last Admin: 02/27/19 08:38 Dose: 1 mg Hydromorphone HCl (Dilaudid Tablet) 2 - 4 mg PO Q3H PRN PRN PRN Reason: PAIN Hydromorphone HCl (Dilaudid Inj) 1 - 2 mg IV Q3H PRN PRN PRN Reason: Severe pain (7-10/10) Sodium Chloride () 1,000 mls @ 100 mls/hr IV .Q10H [facility] Last Admin: 02/27/19 06:26 Dose: Not Given Sodium Chloride () 1,000 mls @ 200 mls/hr IV .Q5H [facility] Stop: 04/22/19 11:34 Last Admin: 02/27/19 08:33 Dose: 200 mls/hr Lorazepam (Ativan) 0.5 mg PO Q4H PRN PRN Reason: ANXIETY Last Admin: 02/27/19 04:14 Dose: 0.5 mg Lubiprostone (Amitiza) 24 mcg PO BID [facility] Last Admin: 02/27/19 08:34 Dose: 24 mcg Methadone HCl () 2.5 mg PO TID [facility] Last Admin: 02/27/19 05:26 Dose: 2.5 mg Nutritional Formula (Lactose Free) (Ensure Enlive) 120 ml PO 4X/DAY [facility] Last Admin: 02/27/19 08:38 Dose: 120 ml Pantoprazole Sodium (Protonix) 20 mg PO DAILY [facility] Last Admin: 02/27/19 08:38 Dose: 20 mg [facility] () [facility] Last Admin: 02/27/19 08:33 Dose: 10 mg Senna/Docusate Sodium (Senokot-S, Soni-Colace) 3 tablet PO BID PRN PRN Reason: Constipation Sertraline HCl (Zoloft) 50 mg PO DAILY [facility] Last Admin: 02/27/19 08:34 Dose: 50 mg Sodium Chloride () 5 - 15 ml IV UD PRN PRN Reason: SALINE FLUSH Last Admin: 02/26/19 17:09 Dose: 10 ml Temazepam (Restoril) 15 mg PO QHS [facility] Last Admin: 02/26/19 22:08 Dose: 15 mg Medical Necessity - Tobacco Use Smoking Status: Never smoker Tobacco Use: Non-smoker Assessment/Plan All Active Problems (Last Updated 08/11/18 @ 23:05 by Ezequiel Zuniga MD) Acute encephalopathy (Resolved) Hyponatremia (Acute) Intractable nausea and vomiting (Acute) Obstipation (Acute) Abdominal pain (Acute) Patient is a 53-year-old gentleman with history of metastatic neuroendocrine carcinoma who presented with abdominal pain hospital course complicated by hyponatremia patient started on IV fluids with monitoring of electrolyte 1. Abdominal pain in a patient with metastatic neuro endocrine cancer CT of the abdomen and pelvis obtained on admission demonstrated Hepatomegaly with innumerable metastatic hypodense mass lesions and hepatic cirrhosis. Admitted to regular nursing floor for symptomatic management. Consultation was placed to oncology 2. 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 Metastatic neuroendocrine carcinoma poor prognosis as stated above Hologic consulted with plans to have discussion with family regarding patient's prognosis 4. Severe protein calorie malnutrition secondary to above 5. Intractable nausea vomiting secondary to #1 6. Essential hypertension blood pressure stable 7. DVT prophylaxis on enoxaparin Active Medications Amlodipine Besylate (Norvasc) 10 mg PO DAILY [facility] Last Admin: 02/27/19 08:38 Dose: 10 mg Enoxaparin Sodium (Lovenox) 40 mg SC DAILY@1000 [facility] Last Admin: 02/27/19 08:34 Dose: 40 mg Hydromorphone HCl (Dilaudid Inj) 1 - 2 mg IV Q3H PRN PRN PRN Reason: Severe pain (7-10/10) Last Admin: 02/27/19 08:38 Dose: 1 mg Hydromorphone HCl (Dilaudid Tablet) 2 - 4 mg PO Q3H PRN PRN PRN Reason: PAIN Hydromorphone HCl (Dilaudid Inj) 1 - 2 mg IV Q3H PRN PRN PRN Reason: Severe pain (7-10/10) Sodium Chloride () 1,000 mls @ 100 mls/hr IV .Q10H [facility] Last Admin: 02/27/19 06:26 Dose: Not Given Sodium Chloride () 1,000 mls @ 200 mls/hr IV .Q5H [facility] Stop: 02/27/19 11:34 Last Admin: 02/27/19 08:33 Dose: 200 mls/hr Lorazepam (Ativan) 0.5 mg PO Q4H PRN PRN Reason: ANXIETY Last Admin: 02/27/19 04:14 Dose: 0.5 mg Lubiprostone (Amitiza) 24 mcg PO BID [facility] Last Admin: 02/27/19 08:34 Dose: 24 mcg Methadone HCl () 2.5 mg PO TID [facility] Last Admin: 02/27/19 05:26 Dose: 2.5 mg Nutritional Formula (Lactose Free) (Ensure Enlive) 120 ml PO 4X/DAY [facility] Last Admin: 02/27/19 08:38 Dose: 120 ml Pantoprazole Sodium (Protonix) 20 mg PO DAILY [facility] Last Admin: 02/27/19 08:38 Dose: 20 mg [facility]one () [facility] Last Admin: 02/27/19 08:33 Dose: 10 mg Senna/Docusate Sodium (Senokot-S, Soni-Colace) 3 tablet PO BID PRN PRN Reason: Constipation Sertraline HCl (Zoloft) 50 mg PO DAILY [facility] Last Admin: 02/27/19 08:34 Dose: 50 mg Sodium Chloride () 5 - 15 ml IV UD PRN PRN Reason: SALINE FLUSH Last Admin: 02/26/19 17:09 Dose: 10 ml Temazepam (Restoril) 15 mg PO QHS [facility] Last Admin: 02/26/19 22:08 Dose: 15 mg Clinical Impression(s) from Imaging Studies Abdomen/Pelvis CT 02/25/19 08:44 IMPRESSION: 1. Hepatomegaly with innumerable metastatic hypodense mass lesions and hepatic cirrhosis. 2. Small 5 mm hypodense mass in the posterior parenchyma of the pancreatic tail (series 2, image 29). I am uncertain if this is new since the prior CT was done without contrast. 3. Small hypodense cyst in the right kidney. I'm uncertain if this is new since the prior CT was not without contrast. 4. Diffuse sclerotic metastatic bone disease. They were present previously. 5. Fecal impaction in the rectum. Electronically Signed: Milo Friend MD at 10:27 EDT , Service support , Code Visit Inpatient E&M: 77869 Subs Hosp L3
[2019-02-27 08:58] LABS: Anion Gap 8 (5-15); BUN 9 mg/dL (7-18); BUN/Creat Ratio 16.9 RATIO (10-20); Calcium,Total 7.9 mg/dL (8.5-10.1); Chloride 91 mmol/L (98-107); Creatinine, Serum 0.53 mg/dL (0.70-1.30); EST Glomerular Filtration Rate 174 mL/min (>60); Est Glom Filt Rate - Afr Amer 210 mL/min (>60); Estimated Creatinine Clearance 125.01 ml/min; Glucose 110 mg/dL (74-106); Potassium 3.8 mmol/L (3.5-5.1); Sodium Level 123 mmol/L (136-145)
--- NOTE | 2019-02-27 10:46 | NURSING ---
family called nursing that pt had voided blood. pt voided 350 cc urine with a small amt of blood on side of urinal. pt had small red area at tip of penis. will continue to monitor
--- NOTE | 2019-02-27 10:50 | CASEMGMT ---
Addendum entered by Erin Duran 02/27/19 14:58: Patient is current with [facility] Original Note: RN CM Face to Face with patient for initial transition planning/care coordination assessment. RN CM introduced self and role at [facility]. Patient lying in bed, sleeping, and family at bedside. willing to participate in assessment and is able to answer all questions appropriately. Care providers, pharmacy, and demographics verified. wishes to discharge home and is to have a meeting with Dr. Booker regarding course of treatment. Patient states he has no further needs or concerns at this time. CM to follow for discharge planning needs that may arise. PCP: Joshua Specialists: Jhony, oncologist Preferred Pharmacy: [facility] Insurance: MMO Prescription Benefit: Yes Living Will/HPOA: yes, Tiara Patino LNOK: , family Living Arrangements: Patient lives with in 1 story home with 2 steps to enter the home. Patient was mostly independent at home. Transportation: DME/HHC: denies any DME in the home. Disposition Plan: TBD by course of treatment Erin DAVIS, RN, CM
[2019-02-27 13:17] LABS: Anion Gap 8 (5-15); BUN 10 mg/dL (7-18); BUN/Creat Ratio 17.2 RATIO (10-20); Calcium,Total 7.9 mg/dL (8.5-10.1); Chloride 92 mmol/L (98-107); Creatinine, Serum 0.58 mg/dL (0.70-1.30); EST Glomerular Filtration Rate 156 mL/min (>60); Est Glom Filt Rate - Afr Amer 189 mL/min (>60); Estimated Creatinine Clearance 114.23 ml/min; Glucose 119 mg/dL (74-106); Sodium Level 123 mmol/L (136-145)
[2019-02-27] MEDS: 0.9% Normal Saline 1,000 ML 100 ML IV (13:26)
--- NOTE | 2019-02-27 13:30 | CON.PCM_ITS ---
- Problem List (1) Neuroendocrine cancer Status: Chronic Comment: With wide metastasis Subjective Chief Complaint: abd pain, n/v History of Present Illness: Diagnosis: 1) Metastatic neuroendocrine tumor of unknown primary site. ? HPI: Patient is 53-year-old male has a past medical history significant for asthma (stable symptoms since childhood) who over the 2 years prior to initial evaluation here had been experiencing a symptom complex characterized by a sensation of abdominal bloating/constipation and pain. These episodes were getting more frequent in the last couple months. Also during these episodes he'd have hypertension. ? The only consistent triggering factor waswhen he went for more than 4-6 hours without eating. ? He was evaluated urgent care for these complaints. A CT scan the abdomen was performed that demonstrated findings consistent with hepatic metastases. ? He underwent biopsy. Results demonstrated neuroendocrine tumor. Ki-67 was approximately 30%. ? CT of the chest and brain on 03/24/2018 were unremarkable. There were a few indeterminate small left lower lung nodules along with a small nodule in the right lung that was consistent with granuloma. CT abdomen pelvis demonstrated findings are highly suspicious for metastatic disease of unknown primary. ? Neuroendocrine pet imaging revealed foci of increased activity in left parotid region and the suboccipital cutaneous area as well as multiple foci of increased activity in the liver nearly diffuse. There was focal increased activity in the gastric region most pronounced along the proximal gastric wall. There is also focal activity in the gastroduodenal junction area adjacent to the left lobe of liver. Multiple foci of increased activity were noted throughout the axial and appendicular skeleton. ? ? He underwent an EGD 04/22/2018 and was found to have localized nodular mucosin the duodenal bulb. Biopsies were obtained. The gastric antral wall was noted to be normal. There was a medium size, ulcerated non-circumferential mass with losing and stigmata of recent bleed in the gastric fundus. Biopsies were obtained. Fulguration of the gastric fundus was performed to stop the bleeding. This was by way of argon plasma. ? On colonoscopy performed same day, he was noted to have congestive mucosin at the ileocecal valve. Examination was otherwise normal. ? Previous therapy: 1) Lanreotide. 2) Capecitabine and Temodar. PD. 3)?[place]/carbo?x1. Insurance denied gem. 4) Carbo/etop. Intolerance. ? Current therapy: 1) Carboplatin. was admitted Wednesday for obstipation and worsening abdominal pain. Patient has a history of cyclic severe abdominal pain and obstipation as well as oftentimes hypertension. He was administered magnesium citrate and pain medications over the weekend but was not able to tolerate oral magnesium citrate. A CT scan of the abdomen and pelvis was obtained which redemonstrated innumerable hepatic metastases with a nodular contour to the surface of the liver. I was consulted for prognosis of the underlying malignancy. Upon arriving to the room, patient was asleep and said he had just fallen asleep which is the first time in several days he's gotten to sleep. I therefore had a discussion with the patient's , son and [id number]. Past Medical History: Chronic Problems (Last Updated 08/11/18 @ 23:05 by Ezequiel Zuniga MD) Neuroendocrine cancer (Chronic) With wide metastasis Past Medical/Surgical History: Past Medical History - Most Recent Inpatient Visit Past Medical History Start: 02/25/19 12:16 Text: Status: Complete Freq: ONCE Protocol: Document 02/25/19 12:16 (Rec: 02/25/19 12:36 [id number]) BMI Required to complete PMH What is Patient's BMI 18.2 Neurologic Medical History Hx Stroke/TIA No Hx Dementia/Alzheimer's No Hx Parkinson's Disease No Hx Seizures No Hx Multiple Sclerosis No Hx Migraines No Cardiac Medical History VTE Present on Admission No Hx of Deep Vein Thrombosis/VTE/PE No Hx Hypertension Yes Hx Chest Pain/Angina No Hx Heart Attack No Hx Cardiac Surgery/Stents/Etc. No Hx Heart Failure No Hx Pacemaker/AICD No Hx Irregular Heartbeat and/or Afib No Hx Anticoagulant Therapy No Query Text:(Coumadin, Aspirin, Plavix, Xarelto, etc.) Hx Pain in Legs when Walking/Leg Cramps No Respiratory Medical History Hx COPD No Hx Emphysema No Hx Smoking No Smoking Status Never smoker Hx Smoking Exposure No Hx Tobacco Use in last 12 months No Hx of Pipe Smoking No Hx Sleep Apnea No CPAP No BIPAP No Do you snore loudly (louder than talking Yes or can be heard through closed doors)? Do you often feel tired/ fatigued/ Yes sleepy during daytime? Has anyone observed you stop breathing No during sleep? STOP Results Positive Comments asthma GI Medical History Hx Ulcer No Hx Hepatitis No Hx Cirrhosis No Hx GI Bleed No Hx Unplanned Weight Loss Yes Genitourinary Medical History Indwelling Catheter in Place on Arrival/ No Admission Hx Renal Disease No Hx Dialysis No Musculoskeletal History Hx Arthritis No Hx Rheumatoid Arthritis No Endocrine Medical History Hx Diabetes No Hx Thyroid Disease No Hematologic Medical History Hx of Blood Transfusion No Hx of Transfusion in last 3 Months No Ever experience any problems with No transfusion(s)? Hx of Preganancy in last 3 Months N/A Nurse Filling Out Transfusion & SHESS Questions: Date: 02/25/19 Time: 12:34 Psycho/Social Medical History Hx Depression Yes: zoloft Hx Anxiety No Hx Behavior Disorder No Hx Alcohol Use No Hx Substance Use No Other Medical History Hx Blood Disorders No Hx Anemia No Hx Cancer Yes: LUNG, BONE, LIVER; neuroendocrine CA Hx Drug Resistant Organism No Wound/Pressure Injury Present on Arrival No /Admission Query Text:If yes, chart assessment in Shift/Clinical Findings Central Line/PICC/VAD Present on Arrival No /Admission Antibiotics within last 7 days? No Methicillin Resistant Staphylococcus aureus Screening Active MRSA No Risk for Readmission Number of Risk Factors 3 At Risk for Readmission Patient is At Risk For Readmission Patient is eligible for Call Back Y Past Medical History (Last Updated 08/11/18 @ 23:05 by Ezequiel Zuniga MD) Neuroendocrine cancer (Acute) Maternal Family History: Cancer Paternal Family History: Heart Disease - Social History Lives: Spouse/ Significant Other Smoking Status: Never smoker Tobacco Use: Non-smoker Alcohol: None Drugs: None Allergies/Adverse Reactions: Allergy/AdvReac Type Severity Reaction Status Date / Time DUST Allergy Other Uncoded 02/25/19 08:34 Vital Signs Height 1.71 m Weight: 53.6 kg Weight in Pounds 118.2 lbs Pulse Ox 97 Temperature 97.5 F Pulse Rate 107 Respiratory Rate 8 Blood Pressure 155/104 Blood Pressure Position Semi-Fowlers - Physical Exam General: - - Asleep Cardiac:: Regular rhythm Lungs: Normal air movement - with passive resps. Laboratory Data: Laboratory Tests 02/27/19 02/27/19 02/27/19 Range/Units 12:43 08:30 00:50 WBC (4.4-11.0) K/mm3 RBC (4.6-6.2) M/mm3 Hgb (13.0-16.5) g/dl Hct (40-54) % MCV (80-94) fL MCH (27.0-32.0) pg MCHC (32-36) g/gl RDW (11.6-14.6) % RDW Differential (35.1-43.9) fl Plt Count (150-450) K/mm3 MPV (6.2-12.0) fl Immature Gran % (Auto) (0.0-0.9) % Neut % (Auto) (47-70) % Lymph % (Auto) (19-41) % [place] % (Auto) (0-10) % Eos % (Auto) (0-5) % Baso % (Auto) (0-1) % Absolute Neuts (auto) (2.0-7.7) X10^3/uL Absolute Lymphs (auto) (0.83-4.51) X10^3/ul Total Counted Sodium 123 L 123 L (136-145) mmol/L Potassium 4.0 3.8 (3.5-5.1) mmol/L Chloride 92 L 91 L (98-107) mmol/L Carbon Dioxide 23.0 24.0 (21.0-32.0) mmol/L Anion Gap 8 8 (5-15) BUN 10 9 (7-18) mg/dL Creatinine 0.58 L 0.53 L (0.70-1.30) mg/dL Estim Creat Clear Calc 114.23 125.01 ml/min Est GFR (MDRD) Af Amer 189 210 (>60) mL/min Est GFR (MDRD) Non-Af 156 174 (>60) mL/min BUN/Creatinine Ratio 17.2 16.9 (10-20) RATIO Glucose 119 H 110 H (74-106) mg/dL Calcium 7.9 L 7.9 L (8.5-10.1) mg/dL Urine Color Yellow (Yellow) Urine Clarity Sl. Cloudy (Clear) Urine pH 7.0 (5.0 - 8.0) Ur Specific [place] 1.010 (1.002-1.030) Urine Protein 30 H (Negative) mg/dl Urine Glucose (UA) 50 H (Normal) mg/dl Urine Ketones 50 H (Negative) mg/dl Urine Occult Blood 250 H (Negative) /ul Urine Nitrite Negative (Negative) Urine Bilirubin Negative (Negative) mg/dL Urine Urobilinogen Normal (Normal) mg/dl Ur Leukocyte Esterase Negative (Negative) /ul Urine RBC 10-25 SEEN (0-5) /hpf Urine WBC 0 SEEN (0-5) /hpf Ur Squamous Epith Cells 0 SEEN (0-5) /hpf Urine Bacteria 0 SEEN (None Seen) /hpf Urine Mucus 0 SEEN (<or=2+) /hpf 02/27/19 02/27/19 Range/Units 00:50 00:50 WBC 9.9 (4.4-11.0) K/mm3 RBC 4.09 L (4.6-6.2) M/mm3 Hgb 12.8 L (13.0-16.5) g/dl Hct 36.8 L (40-54) % MCV 90.0 (80-94) fL MCH 31.3 (27.0-32.0) pg MCHC 34.8 (32-36) g/gl RDW 15.2 H (11.6-14.6) % RDW Differential 48.4 H (35.1-43.9) fl Plt Count 209 (150-450) K/mm3 MPV 9.4 (6.2-12.0) fl Immature Gran % (Auto) 0.200 (0.0-0.9) % Neut % (Auto) 72.3 H (47-70) % Lymph % (Auto) 12.5 L (19-41) % [place] % (Auto) 14.9 H (0-10) % Eos % (Auto) 0.0 (0-5) % Baso % (Auto) 0.1 (0-1) % Absolute Neuts (auto) 7.1 (2.0-7.7) X10^3/uL Absolute Lymphs (auto) 1.23 (0.83-4.51) X10^3/ul Total Counted Not Reportable Sodium 124 L (136-145) mmol/L Potassium 4.1 (3.5-5.1) mmol/L Chloride 90 L (98-107) mmol/L Carbon Dioxide 25.0 (21.0-32.0) mmol/L Anion Gap 9 (5-15) BUN 10 (7-18) mg/dL Creatinine 0.72 (0.70-1.30) mg/dL Estim Creat Clear Calc 92.02 ml/min Est GFR (MDRD) Af Amer 147 (>60) mL/min Est GFR (MDRD) Non-Af 121 (>60) mL/min BUN/Creatinine Ratio 13.8 (10-20) RATIO Glucose 119 H (74-106) mg/dL Calcium 8.1 L (8.5-10.1) mg/dL Urine Color (Yellow) Urine Clarity (Clear) Urine pH (5.0 - 8.0) Ur Specific [place] (1.002-1.030) Urine Protein (Negative) mg/dl Urine Glucose (UA) (Normal) mg/dl Urine Ketones (Negative) mg/dl Urine Occult Blood (Negative) /ul Urine Nitrite (Negative) Urine Bilirubin (Negative) mg/dL Urine Urobilinogen (Normal) mg/dl Ur Leukocyte Esterase (Negative) /ul Urine RBC (0-5) /hpf Urine WBC (0-5) /hpf Ur Squamous Epith Cells (0-5) /hpf Urine Bacteria (None Seen) /hpf Urine Mucus (<or=2+) /hpf Diagnostic Data: Diagnostic Data Abdomen/Pelvis CT 02/25/19 08:44 IMPRESSION: 1. Hepatomegaly with innumerable metastatic hypodense mass lesions and hepatic cirrhosis. 2. Small 5 mm hypodense mass in the posterior parenchyma of the pancreatic tail (series 2, image 29). I am uncertain if this is new since the prior CT was done without contrast. 3. Small hypodense cyst in the right kidney. I'm uncertain if this is new since the prior CT was not without contrast. 4. Diffuse sclerotic metastatic bone disease. They were present previously. 5. Fecal impaction in the rectum. Electronically Signed: Milo Friend MD at 10:27 EDT , Service support , Assessment and Plan 1) Metastatic neuroendocrine carcinoma. Assessment: -Patient has had cyclic symptoms of severe abdominal pain, constipation and hypertension as initial and ongoing symptomatology. -Now complicated by hyponatremia. -He has received several lines of endocrine and chemotherapy. -I personally reviewed CT scan images done on Wednesday with those done previously at the clinic. There is been progression of several liver metastases. -His KPS is declining and currently 20-30%. -Because of the progressive and refractory nature of the underlying malignancy along with the severity of his symptoms, I recommended discontinuing chemotherapy and institution of hospice care. His and son were agreeable to this. Plan: -Consult [facility] for inpatient transfer. Medications: Prescriptions This Visit Medication Instructions Recorded Bisacodyl [Dulcolax] 20 mg PO QHS 02/25/19 Haloperidol 0.5 mg PO Q4H PRN 02/25/19 Lorazepam [Ativan] 0.5 mg PO Q4H PRN 02/25/19 Multivitamin [Daily Multiple 1 each PO DAILY 02/25/19 Vitamin] Naloxone HCl [Narcan] 4 mg NS DAILY PRN 02/25/19 Prednisone 10 mg PO DAILY 02/25/19 Sertraline HCl 50 mg PO DAILY 02/25/19 Primary Care Provider: Samy Lewis MD Referring Provider: Samy Wheeler DO
--- NOTE | 2019-02-27 14:05 | CASEMGMT ---
Social Work Note SW received Hospice Consult from physician. GHASSAN placed a call to [facility] and provided MICHELE Spivey with Hospice referral. GHASSAN met with pt, pt's and son present in room. Pt soundly sleeping. GHASSAN informed pt's and son that Hospice referral has been made and [facility] will be at [facility] to meet with pt and pt's family. SW offered support to pt's family. Pt's family denied additional needs or concerns at this time. Plan: [facility] to meet with pt's family today Erin Posey [employer]
--- NOTE | 2019-02-28 07:13 | DS.PCM_ITS ---
Discharge Date and Diagnosis Date of Admission: 02/25/19 Date of Discharge: 02/28/19 - Primary Discharge Diagnosis abdominal Pain - Secondary Discharge Diagnosis Chronic Problems (Last Updated 08/11/18 @ 23:05 by Ezequiel Zuniga MD) Neuroendocrine cancer (Chronic) With wide metastasis Hospital Course and Treatment Operations: None Summary of Care Provided: Patient is a 53-year-old gentleman with history of metastatic neuroendocrine carcinoma who presented with abdominal pain hospital course complicated by hyponatremia patient started on IV fluids with monitoring of electrolyte 1. Abdominal pain in a patient with metastatic neuro endocrine cancer CT of the abdomen and pelvis obtained on admission demonstrated Hepatomegaly with innumerable metastatic hypodense mass lesions and hepatic cirrhosis. Admitted to regular nursing floor for symptomatic management. Consultation was placed to oncology patient was seen by Dr. Booker who held discussion with family family agreed for patient to be made hospice consultation was placed to the inpatient hospice medical service and patient was transferred to the facility on 02/27/2019 2. 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 Metastatic neuroendocrine carcinoma poor prognosis as stated above Hologic consulted with plans to have discussion with family regarding patient's prognosis 4. Severe protein calorie malnutrition secondary to above 5. Intractable nausea vomiting secondary to #1 6. Essential hypertension blood pressure stable 7. DVT prophylaxis on enoxaparin - Physical Exam General: Lethargic Lungs: Diminished Extremities: No clubbing Psych/Mental Status: Depressed Vital Signs Temp Pulse Resp BP Pulse Ox 97.8 F 118 H 12 160/97 H 98 02/27/19 15:11 02/27/19 15:11 02/27/19 15:11 02/27/19 15:11 02/27/19 15:11 Oxygen Delivery Method Room Air Weight: 53.6 kg Body Mass Index (BMI) 18.2 Intake and Output for Last 24 Hours 02/26/19 02/27/19 02/28/19 23:59 23:59 23:59 Intake Total 2318 / 8 2621 / 2621 Output Total 2540 / 2540 Balance 2317 / 2317 81 / 81 Laboratory Tests Past 24 Hrs 02/27/19 02/27/19 08:30 12:43 Sodium 123 L 123 L Potassium 3.8 4.0 Chloride 91 L 92 L Carbon Dioxide 24.0 23.0 Anion Gap 8 8 BUN 9 10 Creatinine 0.53 L 0.58 L Estim Creat Clear Calc 125.01 114.23 Est GFR (MDRD) Af Amer 210 189 Est GFR (MDRD) Non-Af 174 156 BUN/Creatinine Ratio 16.9 17.2 Glucose 110 H 119 H Calcium 7.9 L 7.9 L Discharge Diet: No Restrictions Home Medications: Medications to take at Discharge Dicyclomine HCl [Bentyl] 10 mg PO 4X/DAY PRN PRN 08/11/18 DiphenhydrAMINE [Benadryl] 25 mg PO QHS PRN PRN 08/11/18 Fluticasone 0.05% [Flonase Nasal [place]] 1 spray NASAL PRN PRN 08/11/18 Pantoprazole Sodium [Protonix] 20 mg PO DAILY 08/11/18 Sennosides/Docusate Sodium [Senna Plus Tablet] 3 tab PO BID PRN 08/11/18 Oxycodone [Oxyir] 5 - 10 mg PO Q4H PRN 11/02/18 Albuterol Inhaler [Ventolin Hfa] 2 puff INHALATION Q4H PRN PRN 11/18/18 HYDROmorphone tablet [Dilaudid] 2 - 4 mg PO Q3H PRN PRN 11/18/18 Ondansetron [Zofran] 8 mg PO Q8H PRN PRN 11/18/18 Polyethylene Glycol 3350 [Miralax] 17 gm PO DAILY PRN PRN 11/18/18 Methadone HCl 2.5 mg PO TID 01/19/19 Temazepam [Restoril] 15 mg PO QHS 01/19/19 Amlodipine [Norvasc] 10 mg PO DAILY #30 tablet 01/21/19 Bisacodyl [Dulcolax] 20 mg PO QHS 02/25/19 Haloperidol 0.5 mg PO Q4H PRN 02/25/19 Lorazepam [Ativan] 0.5 mg PO Q4H PRN 02/25/19 Multivitamin [Daily Multiple Vitamin] 1 each PO DAILY 02/25/19 Naloxone HCl [Narcan] 4 mg NS DAILY PRN 02/25/19 Prednisone 10 mg PO DAILY 02/25/19 Sertraline HCl 50 mg PO DAILY 02/25/19 Primary Care Physician: Samy Lewis MD [Primary Care Provider] - Disposition: Hospice Medical Facility Minutes spent on discharge:: 36 Patient Condition:: Poor Medical Necessity - Tobacco Use Smoking Status: Never smoker Tobacco Use: Non-smoker Meaningful Use Info Meaningful Use Diagnoses (Choose all that apply): None applicable Code Visit Inpatient E&M: 84796 Disch Hosp
== END 2019-02-27 17:28 | disposition hospice, inpatient (51) ==
LOC: ED 09:09 → MS3 11:50
PROVIDERS: Hospitalist; Admitting Provider Internal Medicine; Emergency Provider Emergency Medicine; Family Provider Family Medicine; PCP Family Medicine; Referring Provider Internal Medicine; Visit Provider Internal Medicine
DX: R10.84 Generalized abdominal pain (principal); C7A.8 Other malignant neuroendocrine tumors; C78.00 Secondary malignant neoplasm of unspecified lung; C78.7 Secondary malignant neoplasm of liver and intrahepatic bile duct; C79.51 Secondary malignant neoplasm of bone; E43 Unspecified severe protein-calorie malnutrition; Z68.1 Body mass index [BMI] 19.9 or less, adult; Z79.899 Other long term (current) drug therapy; Z79.51 Long term (current) use of inhaled steroids; I10 Essential (primary) hypertension; R11.2 Nausea with vomiting, unspecified; E87.1 Hypo-osmolality and hyponatremia; K59.00 Constipation, unspecified
CPT/HCPCS: 36415; 74177; 80048; 80076; 81001; 83690; 85025; 87086; 93005; 96361; 96372; 96374; 96375; 96376; 97802; 99218; 99284; J7030; Q9967; A4216; G0378; J2405